=== PATIENT | male | born 1965 | race Caucasian/White ===

== ENCOUNTER 2017-01-01 04:43 | Emergency (ER) | payer OTHER ==
--- NOTE | 2017-01-01 05:14 | ER Document Report ---
Doctor's Note Notes: 01/01/17 05:11 I performed a quick triage evaluation of the patient. Patient is a pleasant 51- year-old male who presents with complaint of 5 days of dysuria and feeling like he has to go urinate but is only able to urinate a small amount at a time. No history of prostatitis. He says he has had similar symptoms in the past injections with his kidney stones however with his kidney stones he usually had associated back pain which she does not have this time. He did have to have a stent placed 4 years ago when he had a large kidney stone. He denies any fevers. No vomiting. No diarrhea. He says he did go to urgent care and they did a dipstick on his urine which showed small amount of blood. They did place him on Flomax. Symptoms have continued and therefore he has come to the ER. He has no other complaints at this time. On evaluation patient has no significant pain to palpation of the abdomen. No pain to palpation of the back or flank. On general exam he has no redness or irritation to the genitalia. No abnormal appearing lesions. I did perform a quick bedside ultrasound. Patient says he actually has to urinate now. His prevoid bladder volume is 100 mL's. I will obtain a CBC BMP and urinalysis at this time. Imaging modality will be deferred until the next provider arrives shortly or until his urinalysis is complete. Dictation of this chart was performed using voice recognition software; therefore, there may be some unintended grammatical errors.
[2017-01-01 05:41] LABS: ABSOLUTE BASOPHILS # (AUTO) 0.1 10^3/uL (0.0-0.2); ABSOLUTE EOSINOPHILS # (AUTO) 0.2 10^3/uL (0.0-0.6); ABSOLUTE LYMPHOCYTES (AUTO) 2.2 10^3/uL (0.5-4.7); ABSOLUTE MONOCYTES (AUTO) 0.7 10^3/uL (0.1-1.4); ABSOLUTE NEUT (AUTO) 6.3 10^3/uL (1.7-8.2); BASOPHILS % (AUTO) 1.2 % (0-2); EOSINOPHILS % (AUTO) 2.6 % (0-6); HEMATOCRIT 42.9 % (37.9-51.0); HEMOGLOBIN 15.2 g/dL (13.5-17.0); HGB HCT DIFFERENCE 2.7; LYMPHOCYTES % (AUTO) 23.5 % (13-45); MEAN CORPUSCULAR HEMOGLOBIN 30.7 pg (27.0-33.4); MEAN CORPUSCULAR HGB CONC 35.5 g/dL (32.0-36.0); MEAN CORPUSCULAR VOLUME 86 fl (80-97); MONOCYTES % (AUTO) 7.1 % (3-13); RED BLOOD COUNT 4.97 10^6/uL (4.35-5.55); RED CELL DISTRIBUTION WIDTH 13.1 % (11.5-14.0); SEGMENTED NEUTROPHILS % (AUTO) 65.6 % (42-78); WHITE BLOOD COUNT 9.5 10^3/uL (4.0-10.5)
[2017-01-01 05:47] LABS: APPEARANCE,URINE CLEAR; BILIRUBIN,URINE NEGATIVE (NEGATIVE); GLUCOSE, URINE NEGATIVE (NEGATIVE); KETONES,URINE NEGATIVE (NEGATIVE); LEUKOCYTE ESTERASE,URINE NEGATIVE (NEGATIVE); NITRITE,URINE NEGATIVE (NEGATIVE); PROTEIN,URINE NEGATIVE (NEGATIVE); URINE SPECIFIC GRAVITY 1.008; UROBILINOGEN,URINE NEGATIVE mg/dL (<2.0)
[2017-01-01 05:53] LABS: ANION GAP 12 (5-19); BLOOD UREA NITROGEN 17 mg/dL (7-20); CALCIUM 9.8 mg/dL (8.4-10.2); CARBON DIOXIDE 22 mmol/L (22-30); CHLORIDE 106 mmol/L (98-107); CREATININE RESULT 0.72 mg/dL (0.52-1.25); GLUCOSE 112 mg/dL (75-110); POTASSIUM 4.2 mmol/L (3.6-5.0); SODIUM 139.7 mmol/L (137-145)
--- NOTE | 2017-01-01 06:27 | ER Document Report ---
ED GI/ <ELLIOTT ZHU - Last Filed: 01/01/17 07:51> - General Mode of Arrival: Ambulatory Information source: Patient TRAVEL OUTSIDE OF THE [place] IN LAST 30 DAYS: No - HPI Patient complains to provider of: Other - urinary frequency Onset: Other - Refer to HPI notes Associated symptoms: Penile discharge, Urinary frequency Similar symptoms previously: Yes Recently seen / treated by doctor: No <BILLY ZENDEJAS - Last Filed: 01/01/17 08:11> - General Chief Complaint: Urinary Frequency Stated Complaint: URINATION PROBLEM Time Seen by Provider: 01/01/17 06:30 - HPI Notes: 01/01/17 06:30 Patient is a 51 year old male presenting to the emergency department for dysuria x 5 days. Patient states he has the feeling of frequency and is only able to urinate a small amount at a time. Patient also has a small amount of penile drip/discharge which he states appears like urine. Patient does not notice the discharge at any particular time. Patient denies any thickness to his urine. Patient also complains of a burning/stabbing sensation at the tip of his penis which occurs during urination. Patient denies any flank pain which he states he usually gets when he has his kidney stones. Patient was seen at Urgent Care yesterday and told he had a small amount of blood in his urine so he was started on Flomax. Patient denies any fevers, hematuria, vomiting, or diarrhea. Patient has a history of laser lithotripsy and a stent placement x1 for previous kidney stones. Patient states his other 2 stones he was able to pass himself. Patient also has a history of GERD and he takes Nexium. Patient has no known allergies. (BILLY ZENDEJAS) - Related Data Allergies/Adverse Reactions: No Known Allergies Allergy (Unverified 01/01/17 04:50) Past Medical History - General Information source: Patient, Relative - spouse - Social History Smoking Status: Current Every Day Smoker Cigarette use (# per day): Yes - 1 ppd Chew tobacco use (# tins/day): No Smoking Education Provided: No Frequency of alcohol use: Rare Drug Abuse: None Lives with: Spouse/Significant other Family History: None Patient has suicidal ideation: No Patient has homicidal ideation: No Renal/ Medical History: Reports: Hx Kidney Stones GI Medical History: Reports: Hx Gastroesophageal Reflux Disease Past Surgical History: Reports: Hx Kidney (Renal Surgery) - laser lithotripsy and stent placed <BILLY ZENDEJAS - Last Filed: 01/01/17 08:11> Review of Systems - Review of Systems Constitutional: No symptoms reported. denies: Fever EENT: No symptoms reported Cardiovascular: No symptoms reported Respiratory: No symptoms reported Gastrointestinal: No symptoms reported. denies: Diarrhea, Vomiting Genitourinary: See HPI, Burning, Dysuria, Frequency, Pain, Retention. denies: Flank pain Male Genitourinary: See HPI, Penile discharge Musculoskeletal: No symptoms reported Skin: No symptoms reported Hematologic/Lymphatic: No symptoms reported Neurological/Psychological: No symptoms reported -: Yes All other systems reviewed and negative <BILLY ZENDEJAS - Last Filed: 01/01/17 08:11> Physical Exam <ELLIOTT ZHU - Last Filed: 01/01/17 07:51> - Vital signs Interpretation: Normal <BILLY ZENDEJAS - Last Filed: 01/01/17 08:11> - Vital signs Vitals: Temp Pulse Resp BP Pulse Ox 97.9 F 82 18 135/79 H 100 01/01/17 04:50 01/01/17 04:50 01/01/17 04:50 01/01/17 04:50 01/01/17 04:50 - Notes Notes: GENERAL: Alert, pleasant, interacts well. Mild distress. HEAD: Normocephalic, atraumatic. EYES: Appear normal. Pupils equal, round, and reactive to light. ENT: Moist mucus membranes, tongue midline. NECK: Full range of motion. Supple. Trachea midline. LUNGS: Clear to auscultation bilaterally, no wheezes, rales, or rhonchi. No respiratory distress. HEART: Regular rate and rhythm. No murmurs, gallops, or rubs. ABDOMEN: Soft, non-tender. Non-distended. Normal bowel sounds. EXTREMITIES: Moves all 4 extremities spontaneously. Normal strength. No edema. NEUROLOGICAL: Alert and oriented x3. Normal speech. No focal neurological deficits. GSC 15. PSYCH: Normal affect, normal mood. SKIN: Warm, dry, normal turgor. No rashes or lesions noted. (BILLY ZENDEJAS) Course - Laboratory Result Diagrams: 01/01/17 05:32 01/01/17 05:32 - Diagnostic Test Radiology reviewed: Image reviewed, Reports reviewed - CT scan shows 3 tiny stones in the right kidney, multiple stones in the left kidney, multiple gallstones. No ureteral stones, no hydroureter. <ELLIOTT ZHU - Last Filed: 01/01/17 07:51> - Laboratory Result Diagrams: 01/01/17 05:32 01/01/17 05:32 <BILLY ZENDEJAS - Last Filed: 01/01/17 08:11> - Re-evaluation Re-evalutation: 01/01/17 07:16 When the patient went to obtain the second urine, he did pass a stone. (ELLIOTT ZHU) - Vital Signs Vital signs: Temp Pulse Resp BP Pulse Ox 97.8 F 75 16 132/89 H 98 01/01/17 08:04 01/01/17 08:04 01/01/17 08:04 01/01/17 08:04 01/01/17 08:04 - Laboratory Laboratory results interpreted by me: 01/01/17 05:32 Glucose 112 H Discharge <ELLIOTT ZHU - Last Filed: 01/01/17 07:51> <BILLY ZENDEJAS - Last Filed: 01/01/17 08:11> - Discharge Clinical Impression: Urethral colic due to calculus, Asymptomatic gallstones Condition: Stable Disposition: HOME, SELF-CARE Additional Instructions: Kidney Stone You have passed a kidney stone. Stones within the kidney itself are not painful. The pain occurs as the stone leaves the kidney to pass down the long tube, called the ureter, leading to the bladder. If the stone is small, it will usually pass by itself. Most patients can pass the stone at home. Drink three or four quarts of fluids per day. Return if pain or vomiting become severe, if you develop a high fever, if you are unable to pass your urine, or if other unusual symptoms occur. TRY TAKING AZO-STANDARD FOR URETHRAL IRRITATION. DRINK PLENTY OF FLUIDS. FOLLOW UP WITH YOUR DOCTOR IF NOT IMPROVING. Forms: Return to Work Scribe Attestation: 01/01/17 07:16 I personally performed the services described in the documentation, reviewed and edited the documentation which was dictated to the scribe in my presence, and it accurately records my words and actions. (ELLIOTT ZHU) Scribe Documentation - Scribe Written by Scribe:: Marcela Lou 01/01/2017 07:00 acting as scribe for :: Lisa <BILLY ZENDEJAS - Last Filed: 01/01/17 08:11>
--- NOTE | 2017-01-01 07:12 | RADIOLOGY REPORT (SQ) ---
EXAM DESCRIPTION: CT LTD RENAL STONE PROTOCOL ON COMPLETED DATE/TIME: 01/01/2017 6:52 am REASON FOR STUDY: frequency, urethral pain, hx of stones COMPARISON: None. TECHNIQUE: CT scan of the abdomen and pelvis performed without intravenous or oral contrast. Images reviewed with lung, soft tissue, and bone windows. Reconstructed coronal and sagittal MPR images revi ewed. All images stored on PACS. All CT scanners at this facility use dose modulation, iterative reconstruction, and/or weight based d osing when appropriate to reduce radiation dose to as low as reasonably achievable (ALARA). [facility]: Dose Right [facility]: CareDose [facility]: Dose Right [facility]: Teradose 4D [facility]: Smart Websand RADIATION DOSE: Up-to-date CT equipment and radiation dose reduction techniques were employed. CTDIv ol: 7.4 mGy. DLP: 392 mGy-cm.mGy. LIMITATIONS: None. FINDINGS: LOWER CHEST: No consolidation or pleural effusion. There is a small hiatal hernia. NON-CONTRASTED LIVER, SPLEEN, ADRENALS: Evaluation limited by lack of IV contrast. No identified sign ificant masses. PANCREAS: No peripancreatic inflammatory changes. GALLBLADDER: There is cholelithiasis. RIGHT KIDNEY AND URETER: Assessment for masses limited by lack of IV contrast. Nonobstructing calci fic foci at the right kidney measuring up to 2 mm. No hydronephrosis or hydroureter. LEFT KIDNEY AND URETER: Assessment for masses limited by lack of IV contrast. Nonobstructing calcif ications at the left kidney measuring up to 5 mm (389 Hounsfield units). No hydronephrosis or hydro ureter. AORTA AND RETROPERITONEUM: No abdominal aortic aneurysm. No retroperitoneal masses or adenopathy. BOWEL AND PERITONEAL CAVITY: No dilated bowel loops or focal inflammatory changes. Scattered colonic diverticulosis with no CT evidence for acute diverticulitis. No free fluid or free air. APPENDIX: Normal. PELVIS, BLADDER, AND ABDOMINAL WALL:The urinary bladder is partially decompressed. No pelvic mass. No free fluid. There is a small fat containing left inguinal hernia. BONES: Mild multilevel degenerative changes in the spine. IMPRESSION: Nonobstructing bilateral nephrolithiasis. No hydronephrosis. Cholelithiasis. Mild colonic diverticulosis. Small hiatal hernia. TECHNICAL DOCUMENTATION: JOB ID: [id number] [facility] Quality ID # [id number]: Final reports with documentation of one or more dose reduction techniques (e.g., Au tomated exposure control, adjustment of the mA and/or kV according to patient size, use of iterative reconstruction technique) 2010 [employer] All Rights Reserved
[2017-01-01 08:05] VITALS: BP 132/89
== END 2017-01-01 08:05 | disposition home or self-care (01) ==
LOC: ER 04:43
DX: N21.1 Calculus in urethra (principal); K80.20 Calculus of gallbladder without cholecystitis without obstruction
CPT/HCPCS: 36415; 76380; 80048; 81001; 85025; 99284

== ENCOUNTER 2018-07-15 07:09 | Emergency (ER) | payer OTHER ==
[2018-07-15] MEDS ORDERED: NORMAL SALINE 500 ML IV ONE (07:44)
[2018-07-15] MEDS ORDERED: GABAPENTIN 300 MG CAPSULE PO ONE (07:45)
--- NOTE | 2018-07-15 08:01 | ER Document Report ---
ED General - General Chief Complaint: Itching Stated Complaint: ITCHING Time Seen by Provider: 07/15/18 07:25 Primary Care Provider: ALBA FORTE PA-C [Primary Care Provider] - Follow up in 3-5 days Notes: Patient is a 53-year-old male that presents to the emergency department for chief complaint of hand itching and redness and foot pain. Patient states that 3 or 4 days ago he went to his mother's house to drop off a prescription he was only there for 20 minutes, and then on his way home, he started feeling itching and tingling in his hands, that has been constant since then, and seems like it got worse over time, he also noticed redness to his hands as well. And then last night he started having pain in both his heels that is worse with walking. He describes the pain as a 6 out of 10 at its worst, as an aching and sharp pain in the heels bilaterally. He denies having any swelling or pain or itching in his hands in the past. Denies chronic alcohol use or liver disease that he is aware of. States that he is not diabetic that he is aware of, he takes diclofenac and medicine for reflux disease, but nothing has changed recently. Denies any exposure to skin irritants such as harsh soaps or chemicals. Past Medical History: GERD, osteoarthritis Past Surgical History: Rotator cuff surgery Social History: Admits to smoking cigarettes, occasional alcohol use, denies illicit drug use. Family History: Reviewed and noncontributory for presenting illness Allergies: Reviewed, see documented allergy list. REVIEW OF SYSTEMS: Other than noted above, the 12 point review of systems was reviewed with the patient and were negative, all pertinent findings are included in the HPI. PHYSICAL EXAMINATION: Vital signs reviewed, nursing noted reviewed. GENERAL: Well-appearing, well-nourished and in no acute distress. HEAD: Atraumatic, normocephalic. EYES: Eyes appear normal, extraocular movements intact, sclera anicteric, conjunctiva are normal. ENT: nares patent, oropharynx clear without exudates. Moist mucous membranes. NECK: Normal range of motion, supple without lymphadenopathy LUNGS: Breath sounds clear to auscultation bilaterally and equal. No wheezes rales or rhonchi. HEART: Regular rate and rhythm without murmurs ABDOMEN: Soft, nontender, normoactive bowel sounds. No rebound, guarding, or rigidity. No masses appreciated. EXTREMITIES: Bilateral palmar erythema, evidence of arthritis in most finger joints, without erythema or significant swelling of any particular joint. Additionally the bilateral feet, he does have tenderness on the plantar aspect, the anterior portion of the calcaneus, no evidence of erythema, cap refill normal, muscular motor strength and sensation intact distally in all extremities. NEUROLOGICAL: No focal neurological deficits. Moves all extremities spontaneously Motor and sensory grossly intact on exam. PSYCH: Normal mood, normal affect. SKIN: Warm, Dry, normal turgor, bilateral palmar erythema is appreciated, normal cap refill distally in all digits, no other rashes noted. TRAVEL OUTSIDE OF THE [place] IN LAST 30 DAYS: No - Related Data Allergies/Adverse Reactions: No Known Allergies Allergy (Verified 07/15/18 07:11) Past Medical History - Social History Smoking Status: Current Every Day Smoker Family History: None Patient has suicidal ideation: No Patient has homicidal ideation: No Renal/ Medical History: Reports: Hx Kidney Stones. Denies: Hx Peritoneal Dialysis GI Medical History: Reports: Hx Gastroesophageal Reflux Disease Past Surgical History: Reports: Hx Kidney (Renal Surgery) - laser lithotripsy and stent placed Physical Exam - Vital signs Vitals: Temp Pulse Resp BP Pulse Ox 97.7 F 85 16 133/86 H 98 07/15/18 07:21 07/15/18 07:21 07/15/18 07:21 07/15/18 07:21 07/15/18 07:21 Course - Re-evaluation Re-evalutation: Patient seen and examined vital signs reviewed. Laboratory data and imaging were ordered as appropriate for the patient's presenting symptoms and complaint, with consideration of any critical or life threatening conditions that may be associated with their obtained history and exam as noted above. Patient was treated with gabapentin, and hydroxyzine Results were reviewed when available and demonstrated essentially unremarkable blood work, he did have a mild leukocytosis, without left shift, extensive workup for possible causes of pulmonary erythema and irritation, including iron studies, TSH, CMP, were all unremarkable. The patient was re-evaluated and was improved, hydroxyzine did seem to help with the patient's itching Evaluation was most consistent with possible allergic reaction versus contact irritation, of unclear cause, advised patient to follow-up with his primary care, given a prescription for hydroxyzine. Believe the patient also is having plantar fasciitis, as he does have a high arch to his foot bilaterally, advised high arch shoes, to continue taking his anti-inflammatory, advised discontinuing wearing clogs, which are not improving or helping this condition, and advised to follow-up with his primary care physician in regards to this as well which he was agreeable to. Results were discussed with the patient at this point, after careful consideration I feel that that patient can be discharged from the emergency department, the patient was educated treatments and reasons to return to the emergency department based on their presumed diagnosis as noted above, they were advised to followup with a primary care physician in 2-3 days. Patient was agreeable to plan of care. *Note is created using voice recognition software and may contain spelling, syntax or grammatical errors. Laboratory 07/15/18 07/15/18 07/15/18 07:45 07:45 07:45 WBC 11.9 H RBC 5.75 H Hgb 15.8 Hct 45.5 MCV 79 L MCH 27.5 MCHC 34.8 RDW 14.4 H Plt Count 269 Seg Neutrophils % 71.2 Lymphocytes % 17.6 Monocytes % 6.6 Eosinophils % 3.6 Basophils % 1.0 Absolute Neutrophils 8.5 H Absolute Lymphocytes 2.1 Absolute Monocytes 0.8 Absolute Eosinophils 0.4 Absolute Basophils 0.1 Retic Count (auto) 1.19 Absolute Retic 0.066 Sodium Potassium Chloride Carbon Dioxide Anion Gap BUN Creatinine Est GFR ( Amer) Est GFR (Non-Af Amer) Glucose Calcium Iron 54.3 TIBC 456 H % Saturation 12 Ferritin 11.20 L Total Bilirubin Direct Bilirubin Neonat Total Bilirubin Neonat Direct Bilirubin Neonat Indirect Bili AST ALT Alkaline Phosphatase Total Protein Albumin Lipase Vitamin B12 534.0 Folate 3.51 TSH Free T4 Urine Color Urine Appearance Urine pH Ur Specific [place] Urine Protein Urine Glucose (UA) Urine Ketones Urine Blood Urine Nitrite Urine Bilirubin Urine Urobilinogen Ur Leukocyte Esterase Urine Mucus (Auto) Urine Ascorbic Acid 07/15/18 07/15/18 07/15/18 07:45 07:45 07:45 WBC RBC Hgb Hct MCV MCH MCHC RDW Plt Count Seg Neutrophils % Lymphocytes % Monocytes % Eosinophils % Basophils % Absolute Neutrophils Absolute Lymphocytes Absolute Monocytes Absolute Eosinophils Absolute Basophils Retic Count (auto) Absolute Retic Sodium 141.2 Potassium 4.4 Chloride 105 Carbon Dioxide 26 Anion Gap 10 BUN 13 Creatinine 0.81 Est GFR ( Amer) > 60 Est GFR (Non-Af Amer) > 60 Glucose 106 Calcium 10.1 Iron TIBC % Saturation Ferritin Total Bilirubin 0.6 Direct Bilirubin 0.3 Neonat Total Bilirubin Not Reportable Neonat Direct Bilirubin Not Reportable Neonat Indirect Bili Not Reportable AST 29 ALT 16 L Alkaline Phosphatase 104 Total Protein 7.7 Albumin 4.7 Lipase 62.1 Vitamin B12 Folate TSH 4.26 Free T4 1.16 Urine Color COLORLESS Urine Appearance CLEAR Urine pH 7.0 Ur Specific [place] 1.003 Urine Protein NEGATIVE Urine Glucose (UA) NEGATIVE Urine Ketones NEGATIVE Urine Blood NEGATIVE Urine Nitrite NEGATIVE Urine Bilirubin NEGATIVE Urine Urobilinogen NEGATIVE Ur Leukocyte Esterase NEGATIVE Urine Mucus (Auto) RARE Urine Ascorbic Acid NEGATIVE - Vital Signs Vital signs: Temp Pulse Resp BP Pulse Ox 97.7 F 85 16 133/86 H 98 07/15/18 07:21 07/15/18 07:21 07/15/18 07:21 07/15/18 07:21 07/15/18 07:21 - Laboratory Result Diagrams: 07/15/18 07:45 07/15/18 07:45 Laboratory results interpreted by me: 07/15/18 07/15/18 07/15/18 07:45 07:45 07:45 WBC 11.9 H RBC 5.75 H MCV 79 L RDW 14.4 H Absolute Neutrophils 8.5 H TIBC 456 H Ferritin 11.20 L ALT 16 L Discharge - Discharge Clinical Impression: Foot pain, bilateral Allergic reaction Qualifiers: Encounter type: initial encounter Qualified Code(s): T78.40XA - Allergy, unspecified, initial encounter Condition: Stable Disposition: HOME, SELF-CARE Instructions: Acute Allergic Reaction ([facility]) Additional Instructions: Please follow-up with your primary care physician, to be further evaluated or if your symptoms persist, if you develop any worsening or concerning symptoms such as chest pain shortness of breath or difficulty breathing, do not hesitate to return to the emergency department. Prescriptions: Hydroxyzine HCl [Atarax 50 mg Tablet] 50 mg PO TID PRN #30 tablet PRN Reason: Itching Referrals: ALBA FORTE PA-C [Primary Care Provider] - Follow up in 3-5 days
[2018-07-15 08:05] LABS: ABSOLUTE BASOPHILS # (AUTO) 0.1 10^3/uL (0.0-0.2); ABSOLUTE EOSINOPHILS # (AUTO) 0.4 10^3/uL (0.0-0.6); ABSOLUTE LYMPHOCYTES (AUTO) 2.1 10^3/uL (0.5-4.7); ABSOLUTE MONOCYTES (AUTO) 0.8 10^3/uL (0.1-1.4); ABSOLUTE NEUT (AUTO) 8.5 10^3/uL (1.7-8.2); EOSINOPHILS % (AUTO) 3.6 % (0-6); HEMATOCRIT 45.5 % (37.9-51.0); HEMOGLOBIN 15.8 g/dL (13.5-17.0); LYMPHOCYTES % (AUTO) 17.6 % (13-45); MEAN CORPUSCULAR HEMOGLOBIN 27.5 pg (27.0-33.4); MEAN CORPUSCULAR HGB CONC 34.8 g/dL (32.0-36.0); MEAN CORPUSCULAR VOLUME 79 fl (80-97); MONOCYTES % (AUTO) 6.6 % (3-13); PLATELET COUNT 269 10^3/uL (150-450); RED BLOOD COUNT 5.75 10^6/uL (4.35-5.55); RED CELL DISTRIBUTION WIDTH 14.4 % (11.5-14.0); SEGMENTED NEUTROPHILS % (AUTO) 71.2 % (42-78); TOTAL CELLS COUNTED % (AUTO) 100 %; WHITE BLOOD COUNT 11.9 10^3/uL (4.0-10.5)
[2018-07-15 08:10] LABS: ABSOLUTE RETICS # 0.066 10^6/uL (0.028-0.122); RETICULOCYTE COUNT (AUTO) 1.19 % (0.66-2.85)
[2018-07-15 08:21] LABS: ALANINE AMINOTRANSFERASE 16 U/L (21-72); ALBUMIN 4.7 g/dL (3.5-5.0); ALKALINE PHOSPHATASE 104 U/L (38-126); ANION GAP 10 (5-19); ASPARTATE AMINO TRANSFERASE 29 U/L (17-59); BILIRUBIN,DIRECT 0.3 mg/dL (0.0-0.4); BILIRUBIN,TOTAL 0.6 mg/dL (0.2-1.3); BLOOD UREA NITROGEN 13 mg/dL (7-20); CALCIUM 10.1 mg/dL (8.4-10.2); CARBON DIOXIDE 26 mmol/L (22-30); CHLORIDE 105 mmol/L (98-107); GLUCOSE 106 mg/dL (75-110); LIPASE 62.1 U/L (23-300); POTASSIUM 4.4 mmol/L (3.6-5.0); SODIUM 141.2 mmol/L (137-145); TOTAL PROTEIN 7.7 g/dL (6.3-8.2)
[2018-07-15 08:22] LABS: IRON(TIBC) 54.3 ug/dL (49-181)
[2018-07-15 08:38] LABS: FREE T4 (FREE THYROXINE) 1.16 ng/dL (0.78-2.19)
[2018-07-15 08:45] LABS: APPEARANCE,URINE CLEAR; BILIRUBIN,URINE NEGATIVE (NEGATIVE); COLOR,URINE COLORLESS; GLUCOSE, URINE NEGATIVE (NEGATIVE); KETONES,URINE NEGATIVE (NEGATIVE); LEUKOCYTE ESTERASE,URINE NEGATIVE (NEGATIVE); NITRITE,URINE NEGATIVE (NEGATIVE); PROTEIN,URINE NEGATIVE (NEGATIVE); URINE SPECIFIC GRAVITY 1.003; UROBILINOGEN,URINE NEGATIVE mg/dL (<2.0)
[2018-07-15 08:52] LABS: THYROID STIMULATING HORMONE 4.26 uIU/mL (0.47-4.68)
[2018-07-15] MEDS ORDERED: HYDROXYZINE HCL 10 MG TABLET PO ONE (09:07)
[2018-07-15 09:28] LABS: FOLATE 3.51 ng/mL (>2.76)
[2018-07-15 10:18] VITALS: BP 130/85
== END 2018-07-15 10:17 | disposition home or self-care (01) ==
LOC: ER 07:09
DX: T78.40XA Allergy, unspecified, initial encounter (principal); L29.9 Pruritus, unspecified; X58.XXXA Exposure to other specified factors, initial encounter; M79.671 Pain in right foot; M79.672 Pain in left foot; L53.9 Erythematous condition, unspecified; M19.042 Primary osteoarthritis, left hand; M19.041 Primary osteoarthritis, right hand; K21.9 Gastro-esophageal reflux disease without esophagitis; Z79.1 Long term (current) use of non-steroidal anti-inflammatories (NSAID); Z79.899 Other long term (current) drug therapy; F17.210 Nicotine dependence, cigarettes, uncomplicated; D72.829 Elevated white blood cell count, unspecified
CPT/HCPCS: 99283; 96360; 36415; 84439; 82607; 82728; 82746; 83540; 83550; 83690; 84443; 85025; 85045; 80053; 81001; J7040

== ENCOUNTER 2019-03-10 11:15 | Emergency (ER) | payer OTHER ==
[2019-03-10] MEDS ORDERED: ONDANSETRON HCL INJ/PF 4 MG/2 ML SDV IV ONE (11:21)
--- NOTE | 2019-03-10 11:22 | ER Document Report ---
ED Medical Screen (RME) - General Chief Complaint: Abdominal Pain Stated Complaint: ABDOMINAL PAIN Primary Care Provider: ALBA FORTE PA-C [Primary Care Provider] - Follow up as needed Mode of Arrival: Ambulatory Information source: Patient Notes: Patient presents complaining of lower abdominal pain for the past 10 days. Patient also reports rectal pressure. Patient started vomiting yesterday and has had diarrhea for the past 2 days. Patient states diarrhea started after starting amitiza recently. I have greeted and performed a rapid initial assessment of this patient. A comprehensive ED assessment and evaluation of the patient, analysis of test results and completion of the medical decision making process will be conducted by additional ED providers. TRAVEL OUTSIDE OF THE [place] IN LAST 30 DAYS: No - Related Data Allergies/Adverse Reactions: No Known Allergies Allergy (Verified 03/10/19 11:20) Past Medical History Renal/ Medical History: Reports: Hx Kidney Stones. Denies: Hx Peritoneal Dialysis GI Medical History: Reports: Hx Gastroesophageal Reflux Disease Past Surgical History: Reports: Hx Kidney (Renal Surgery) - laser lithotripsy and stent placed Physical Exam - Vital signs Vitals: Temp Pulse Resp BP Pulse Ox 97.3 F 98 18 130/85 H 97 03/10/19 11:19 03/10/19 11:19 03/10/19 11:19 03/10/19 11:19 03/10/19 11:19 - Abdominal Tenderness: Tender - Lower pelvic Course - Vital Signs Vital signs: Temp Pulse Resp BP Pulse Ox 97.3 F 98 18 130/85 H 97 03/10/19 11:19 03/10/19 11:19 03/10/19 11:19 03/10/19 11:19 03/10/19 11:19 Doctor's Discharge - Discharge Referrals: ALBA FORTE PA-C [Primary Care Provider] - Follow up as needed
[2019-03-10 11:53] LABS: ABSOLUTE BASOPHILS # (AUTO) 0.1 10^3/uL (0.0-0.2); ABSOLUTE EOSINOPHILS # (AUTO) 0.1 10^3/uL (0.0-0.6); ABSOLUTE LYMPHOCYTES (AUTO) 2.1 10^3/uL (0.5-4.7); ABSOLUTE MONOCYTES (AUTO) 1.1 10^3/uL (0.1-1.4); ABSOLUTE NEUT (AUTO) 11.9 10^3/uL (1.7-8.2); BASOPHILS % (AUTO) 0.8 % (0-2); EOSINOPHILS % (AUTO) 0.7 % (0-6); HEMATOCRIT 43.2 % (37.9-51.0); HEMOGLOBIN 14.6 g/dL (13.5-17.0); LYMPHOCYTES % (AUTO) 13.6 % (13-45); MEAN CORPUSCULAR HEMOGLOBIN 27.9 pg (27.0-33.4); MEAN CORPUSCULAR HGB CONC 33.9 g/dL (32.0-36.0); MEAN CORPUSCULAR VOLUME 82 fl (80-97); MONOCYTES % (AUTO) 7.3 % (3-13); PLATELET COUNT 329 10^3/uL (150-450); RED BLOOD COUNT 5.25 10^6/uL (4.35-5.55); RED CELL DISTRIBUTION WIDTH 13.8 % (11.5-14.0); SEGMENTED NEUTROPHILS % (AUTO) 77.6 % (42-78); TOTAL CELLS COUNTED % (AUTO) 100 %; WHITE BLOOD COUNT 15.3 10^3/uL (4.0-10.5)
[2019-03-10 12:01] LABS: APPEARANCE,URINE CLEAR; BILIRUBIN,URINE NEGATIVE (NEGATIVE); COLOR,URINE YELLOW; GLUCOSE, URINE NEGATIVE (NEGATIVE); KETONES,URINE 20 mg/dL (NEGATIVE); PROTEIN,URINE NEGATIVE (NEGATIVE); URINE SPECIFIC GRAVITY 1.014; UROBILINOGEN,URINE NEGATIVE mg/dL (<2.0)
[2019-03-10 12:08] LABS: ALBUMIN 4.1 g/dL (3.5-5.0); ALKALINE PHOSPHATASE 133 U/L (38-126); ANION GAP 14 (5-19); ASPARTATE AMINO TRANSFERASE 24 U/L (17-59); BILIRUBIN,DIRECT 0.2 mg/dL (0.0-0.4); BLOOD UREA NITROGEN 15 mg/dL (7-20); CALCIUM 9.9 mg/dL (8.4-10.2); CARBON DIOXIDE 23 mmol/L (22-30); CHLORIDE 102 mmol/L (98-107); GLUCOSE 97 mg/dL (75-110); POTASSIUM 4.5 mmol/L (3.6-5.0); TOTAL PROTEIN 7.7 g/dL (6.3-8.2)
[2019-03-10] MEDS ORDERED: MORPHINE SULFATE 10 MG/ML INJ IV ONE (12:09)
--- NOTE | 2019-03-10 12:15 | ER Document Report ---
ED General - General Chief Complaint: Abdominal Pain Stated Complaint: ABDOMINAL PAIN Time Seen by Provider: 03/10/19 11:52 Primary Care Provider: ALBA FORTE PA-C [Primary Care Provider] - Follow up as needed Mode of Arrival: Ambulatory TRAVEL OUTSIDE OF THE [place] IN LAST 30 DAYS: No - HPI Notes: Patient is a 53-year-old male with a history of IBS and kidney stones who presents complaining of left lower quadrant abdominal pain, watery diarrhea, lo wer mid abdominal cramping, occasional nausea/vomiting over the past 10 days but more so over the past 2 days. Patient states that last week he believes he may have passed a kidney stone, but this pain is a little bit different. Patient states that he has a weaker urinary stream and is voiding small amounts, with feeling of incomplete void. Patient states that he has had constant watery diarrhea for the past 10 days with a foul smell. No recent antibiotics or travel. No surgical history to his abdomen. Denies drug allergies. He is still able to eat and drink, but everything runs right through him per patient. No other recent illness. Denies any headache, fever, URI, sore throat, chest pain, palpitations, syncope, cough, shortness of breath, wheeze, dyspnea, urinary retention, dysuria, hematuria, back pain, or rash. - Related Data Allergies/Adverse Reactions: No Known Allergies Allergy (Verified 03/10/19 11:20) Past Medical History - General Information source: Patient - Social History Smoking Status: Current Every Day Smoker Family History: None Patient has suicidal ideation: No Patient has homicidal ideation: No Renal/ Medical History: Reports: Hx Kidney Stones. Denies: Hx Peritoneal Dialysis GI Medical History: Reports: Hx Gastroesophageal Reflux Disease Past Surgical History: Reports: Hx Kidney (Renal Surgery) - laser lithotripsy and stent placed Review of Systems - Review of Systems -: Yes All other systems reviewed and negative Physical Exam - Vital signs Vitals: Temp Pulse Resp BP Pulse Ox 97.3 F 98 18 130/85 H 97 03/10/19 11:19 03/10/19 11:19 03/10/19 11:19 03/10/19 11:19 03/10/19 11:19 - Notes Notes: PHYSICAL EXAMINATION: GENERAL: Well-appearing, well-nourished and in no acute distress. HEAD: Atraumatic, normocephalic. EYES: Pupils equal round and reactive to light, extraocular movements intact, sclera anicteric, conjunctiva are normal. ENT: Nares patent and without discharge. oropharynx clear without exudates. No tonsilar hypertrophy or erythema. Moist mucous membranes. NECK: Normal range of motion, supple without lymphadenopathy LUNGS: Breath sounds clear to auscultation bilaterally and equal. No wheezes rales or rhonchi. HEART: Regular rate and rhythm without murmurs, rubs, gallops. ABDOMEN: Soft, nondistended abdomen. No guarding, no rebound. Normal bowel sounds present. No CVA tenderness bilaterally. + tenderness LLQ. Musculoskeletal: FROM to passive/active. Strength 5+/5. Extremities: No cyanosis, clubbing, or edema b/l. Peripheral pulses 2+. Capillary refill less than 3 seconds. NEUROLOGICAL: Cranial nerves grossly intact. Normal speech, normal gait. PSYCH: Normal mood, normal affect. SKIN: Warm, Dry, normal turgor, no rashes or lesions noted. Course - Re-evaluation Re-evalutation: 03/10/19 13:29 Patient is an afebrile, well-hydrated, 53-year-old male who presents with diverticulitis and 2 small possible abscesses measuring 1.5 and 1.1 cm. Vitals are acceptable without significant tachycardia, tachypnea, or hypoxia. PE is otherwise unremarkable. Patient is nontoxic-appearing and is tolerating p.o. Patient does have a leukocytosis of 15,000. Labs otherwise acceptable. I did review with Dr. Rodríguez, surgery, who would like Bactrim and Flagyl for 10 days and follow-up in their office in the next 1-2wks. post void residual was unremarkable at <30cc's. No further work-up warranted at this time. Low suspicion/risk for acute appendicitis, bowel obstruction, acute cholecystitis, perforated diverticulitis, incarcerated hernia, pancreatitis, perforated ulcer, peritonitis, sepsis, testicular torsion, or other systemic emergent condition at this time. Patient is aware that his condition can change from initial presentation and he needs to monitor symptoms closely and seek medical attention if any acute changes. Conservative measures otherwise for symptoms. Recheck with PCM in 3-5 days. Schedule consult with surgery. Return to the ED with any worsening/concerning symptoms otherwise as reviewed in discharge. Patient is in agreement. - Vital Signs Vital signs: Temp Pulse Resp BP Pulse Ox 97.3 F 98 18 130/85 H 97 03/10/19 11:19 03/10/19 11:19 03/10/19 11:19 03/10/19 11:19 03/10/19 11:19 - Laboratory Result Diagrams: 03/10/19 11:30 03/10/19 11:30 Laboratory results interpreted by me: 03/10/19 03/10/19 03/10/19 11:30 11:30 11:30 WBC 15.3 H Absolute Neuts (auto) 11.9 H Alkaline Phosphatase 133 H Urine Ketones 20 H Urine Blood SMALL H Discharge - Discharge Clinical Impression: Diverticulitis Condition: Stable Disposition: HOME, SELF-CARE Instructions: Diverticulitis ([facility]), Trimethoprim-Sulfa ([facility]), Metronidazole ([facility]) Additional Instructions: Maintain adequate fluid and food intake Mccreary diet ([employer] Bananas, rice, apples, toast, etc Zofran as needed tylenol if needed Monitor for any worsening symptoms Make sure you are staying hydrated enough to urinate and have normal BM's Recheck with your PCM in 3-5 days Schedule appointment with general surgery for further evaluation and management in the next couple weeks. Return to the ED with any worsening symptoms and/or development of fever, headache, chest pain, palpitations, syncope, shortness of breath, trouble breathing, abdominal pain, n/v/d, blood in stool/urine, weakness, or other w orsening symptoms that are concerning to you. Prescriptions: Sulfamethoxazole/Trimethoprim [Bactrim Ds Tablet] 1 each PO BID #20 tablet Metronidazole [Flagyl] 500 mg PO TID #30 tablet Hydrocodone/Acetaminophen [[place] 5-325 mg Tablet] 1 tab PO TID #12 tablet Ondansetron [Zofran Odt 4 mg Tablet] 1 - 2 tab PO Q4H PRN #15 tab.rapdis PRN Reason: For Nausea/Vomiting Forms: Elevated Blood Pressure, Return to Work Referrals: ALBA FORTE PA-C [Primary Care Provider] - Follow up as needed SHANIQUA RODRÍGUEZ MD [ACTIVE STAFF] - Follow up as needed
--- NOTE | 2019-03-10 13:08 | RADIOLOGY REPORT (SQ) ---
EXAM DESCRIPTION: CT ABD/PELVIS WITH IV ONLY COMPLETED DATE/TIME: 03/10/2019 12:49 pm REASON FOR STUDY: LLQ pain COMPARISON: 01/01/2017 TECHNIQUE: CT scan of the abdomen and pelvis performed using helical scanning technique with dynamic intravenous contrast injection. No oral contrast. Images reviewed with lung, soft tissue, and bone windows. Reconstructed coronal and sagittal MPR images reviewed. Delayed images for evaluation of the urinary system also acquired. All images stored on PACS. All CT scanners at this facility use dose modulation, iterative reconstruction, and/or weight based d osing when appropriate to reduce radiation dose to as low as reasonably achievable (ALARA). [facility]: Dose Right [facility]: CareDose [facility]: Dose Right [facility]: Teradose 4D [facility]: [employer] CONTRAST TYPE AND DOSE: 81 mL Omnipaque 350 iodinated contrast IV RENAL FUNCTION: GFR > 60. RADIATION DOSE: 1043 mGy cm LIMITATIONS: None. FINDINGS: LOWER CHEST: No significant findings. No nodules or infiltrates. LIVER: Normal size. No masses. No dilated ducts. SPLEEN: Normal size. No focal lesions. PANCREAS: No masses. No significant calcifications. No adjacent inflammation or peripancreatic fluid collections. Pancreatic duct not dilated. GALLBLADDER: Gallstones. No inflammatory changes to suggest cholecystitis. ADRENAL GLANDS: No significant masses or asymmetry. RIGHT KIDNEY AND URETER: No solid masses. No significant calcifications. No hydronephrosis or hyd roureter. LEFT KIDNEY AND URETER: No solid masses. Numerous nonobstructive small calculi. No hydronephrosis or hydroureter. AORTA AND VESSELS: No aneurysm. No dissection. Renal arteries, SMA, celiac without stenosis. RETROPERITONEUM: No retroperitoneal adenopathy, hemorrhage or masses. BOWEL AND PERITONEAL CAVITY: Small hiatal hernia. There is sigmoid diverticulosis with inflammatory fat stranding about the mid sigmoid. There are two small rounded hypodensities about the left aspect of the mid sigmoid concerning for phlegmon or abscess measuring 1.5 cm and 1.1 cm (series 3, image 6 5, series 601, image 45). No evidence of perforation. Small volume of adjacent fluid. APPENDIX: Normal. PELVIS: No mass. No free fluid. Normal bladder. ABDOMINAL WALL: No masses. No hernias. BONES: No significant or acute findings. OTHER: No other significant finding. IMPRESSION: 1. There is sigmoid diverticulosis with inflammatory fat stranding about the mid sigmoid consistent with acute diverticulitis. There are two small rounded hypodensities about the left aspe ct of the mid sigmoid concerning for phlegmon or abscess measuring 1.5 cm and 1.1 cm (series 3, image 65, series 601, image 45). No evidence of perforation. Small volume of adjacent fluid. 2. Cholelithiasis. 3. Nonobstructive left nephrolithiasis. TECHNICAL DOCUMENTATION: JOB ID: [id number] Quality ID # [id number]: Final reports with documentation of one or more dose reduction techniques (e.g., Au tomated exposure control, adjustment of the mA and/or kV according to patient size, use of iterative reconstruction technique) 2010 [employer]- All Rights Reserved Reading location - IP/workstation name: [email or web address]
[2019-03-10 13:51] VITALS: BP 119/85
== END 2019-03-10 13:51 | disposition home or self-care (01) ==
LOC: ER 11:15
DX: K57.92 Diverticulitis of intestine, part unspecified, without perforation or abscess without bleeding (principal); R10.32 Left lower quadrant pain; N39.8 Other specified disorders of urinary system; R19.7 Diarrhea, unspecified; F17.200 Nicotine dependence, unspecified, uncomplicated; Z87.442 Personal history of urinary calculi
CPT/HCPCS: 99284; 96374; 96375; 36415; 83690; 85025; 80053; 81001; 74177; J2270; J2405

== ENCOUNTER → 2019-03-28 | Outpatient (CLI) | payer OTHER ==
--- NOTE | 2019-03-28 08:50 | RADIOLOGY REPORT (SQ) ---
EXAM DESCRIPTION: CT ABD/PELVIS WITH IV ORAL COMPLETED DATE/TIME: 03/28/2019 8:20 am REASON FOR STUDY: DIVERTICULITIS (K57.20) K57.20 DVTRCLI OF LG INT W PERFORATION AND ABSCESS W/O BL EED COMPARISON: 03/10/2019 TECHNIQUE: CT scan of the abdomen and pelvis performed using helical scanning technique with dynamic intravenous contrast injection. No oral contrast. Images reviewed with lung, soft tissue, and bone windows. Reconstructed coronal and sagittal MPR images reviewed. Delayed images for evaluation of the urinary system also acquired. All images stored on PACS. All CT scanners at this facility use dose modulation, iterative reconstruction, and/or weight based d osing when appropriate to reduce radiation dose to as low as reasonably achievable (ALARA). [facility]: Dose Right [facility]: CareDose [facility]: Dose Right [facility]: Teradose 4D [facility]: [employer] CONTRAST TYPE AND DOSE: contrast/concentration: Isovue 350.00 mg/ml; Total Contrast Delivered: 83.0 ml; Total Saline Delivered: 69.0 ml RENAL FUNCTION: BUN 15, creatinine 0.78 RADIATION DOSE: CT Rad equipment meets quality standard of care and radiation dose reduction techniq ues were employed. CTDIvol: 7.8 - 7.8 mGy. DLP: 788 mGy-cm.. LIMITATIONS: None. FINDINGS: LOWER CHEST: No significant findings. No nodules or infiltrates. LIVER: Normal size. No masses. No dilated ducts. SPLEEN: Normal size. No focal lesions. PANCREAS: No masses. No significant calcifications. No adjacent inflammation or peripancreatic fluid collections. Pancreatic duct not dilated. GALLBLADDER: There are gallstones. Probable calcified gallbladder wall as well. ADRENAL GLANDS: No significant masses or asymmetry. RIGHT KIDNEY AND URETER: No solid masses. No significant calcifications. No hydronephrosis or hyd roureter. LEFT KIDNEY AND URETER: No solid masses. Small nonobstructing left renal calculi. No hydronephros is or hydroureter. AORTA AND VESSELS: No aneurysm. No dissection. Renal arteries, SMA, celiac without stenosis. RETROPERITONEUM: No retroperitoneal adenopathy, hemorrhage or masses. BOWEL AND PERITONEAL CAVITY: Persistent bowel wall thickening involving the sigmoid colon. Mild surr ounding mesenteric inflammation. Focal small fluid collections previously described have resolved. No free fluid or free air. APPENDIX: Normal. PELVIS: No mass. No free fluid. Normal bladder. ABDOMINAL WALL: No masses. No hernias. BONES: No significant or acute findings. OTHER: None. IMPRESSION: Persistent bowel wall thickening involving sigmoid colon with surrounding inflammation. Findings remain consistent with diverticulitis. Focal small fluid collections previously described have resolved. TECHNICAL DOCUMENTATION: JOB ID: [id number] Quality ID # [id number]: Final reports with documentation of one or more dose reduction techniques (e.g., Au tomated exposure control, adjustment of the mA and/or kV according to patient size, use of iterative reconstruction technique) 2010 [employer]- All Rights Reserved Reading location - IP/workstation name: [email or web address]
== END ==
LOC: RAD 07:50
PROVIDERS: ATTEND Surgery
DX: K57.20 Diverticulitis of large intestine with perforation and abscess without bleeding (principal); N20.0 Calculus of kidney
CPT/HCPCS: 74177

== ENCOUNTER 2019-04-04 21:34 | Inpatient (IN) | payer OTHER ==
--- NOTE | 2019-04-04 21:50 | ER Document Report ---
ED Medical Screen (RME) - General Stated Complaint: LOWER ABDOMINAL PAIN Time Seen by Provider: 04/04/19 21:44 Primary Care Provider: SHANIQUA RODRÍGUEZ MD [Primary Care Provider] - Follow up as needed TRAVEL OUTSIDE OF THE [place] IN LAST 30 DAYS: No - HPI Notes: 04/04/19 21:48 Patient is a 53-year-old male with history of diverticulitis within the last couple weeks who presents complaining of being unable to urinate and having suprapubic pain and pressure since waking up from a nap around 12:00 today. Patient states that his last urination was about 11 hours ago. Patient states that he is very uncomfortable. He is no longer on any antibiotics. No fever, vomiting, diarrhea. We will place a catheter first and see if this resolves symptoms then consider CT with known diverticulitis history unless other provider chooses differently. I have treated and performed a rapid initial assessment of this patient. A comprehensive ED assessment and evaluation of the patient, analysis of test results and completion of medical decision making process will be conducted by additional ED providers. PHYSICAL EXAMINATION: GENERAL: Well-appearing, well-nourished and in no acute distress. A&Ox4. Answers questions appropriately. Abdomen: There is suprapubic tenderness to palpation. - Related Data Allergies/Adverse Reactions: No Known Allergies Allergy (Verified 03/10/19 11:20) Past Medical History Renal/ Medical History: Reports: Hx Kidney Stones. Denies: Hx Peritoneal Dialysis GI Medical History: Reports: Hx Gastroesophageal Reflux Disease Past Surgical History: Reports: Hx Kidney (Renal Surgery) - laser lithotripsy and stent placed, Hx Orthopedic Surgery - right shoulder Physical Exam - Vital signs Vitals: Temp Pulse Resp BP Pulse Ox 97.3 F 115 H 18 123/92 H 99 04/04/19 21:42 04/04/19 21:42 04/04/19 21:42 04/04/19 21:42 04/04/19 21:42 Course - Vital Signs Vital signs: Temp Pulse Resp BP Pulse Ox 97.3 F 115 H 18 123/92 H 99 04/04/19 21:42 04/04/19 21:42 04/04/19 21:42 04/04/19 21:42 04/04/19 21:42 Doctor's Discharge - Discharge Referrals: SHANIQUA RODRÍGUEZ MD [Primary Care Provider] - Follow up as needed
[2019-04-04] MEDS ORDERED: MORPHINE SULFATE 10 MG/ML INJ IV ONE ×2 (22:13→23:34)
[2019-04-04 22:41] LABS: ABSOLUTE EOSINOPHILS # (AUTO) 0.1 10^3/uL (0.0-0.6); ABSOLUTE LYMPHOCYTES (AUTO) 1.7 10^3/uL (0.5-4.7); ABSOLUTE MONOCYTES (AUTO) 1.3 10^3/uL (0.1-1.4); ABSOLUTE NEUT (AUTO) 13.9 10^3/uL (1.7-8.2); BASOPHILS % (AUTO) 0.2 % (0-2); EOSINOPHILS % (AUTO) 0.5 % (0-6); HEMATOCRIT 43.2 % (37.9-51.0); HEMOGLOBIN 14.8 g/dL (13.5-17.0); LYMPHOCYTES % (AUTO) 9.9 % (13-45); MEAN CORPUSCULAR HEMOGLOBIN 28.3 pg (27.0-33.4); MEAN CORPUSCULAR HGB CONC 34.3 g/dL (32.0-36.0); MEAN CORPUSCULAR VOLUME 83 fl (80-97); MONOCYTES % (AUTO) 7.5 % (3-13); PLATELET COUNT 257 10^3/uL (150-450); RED BLOOD COUNT 5.23 10^6/uL (4.35-5.55); RED CELL DISTRIBUTION WIDTH 14.5 % (11.5-14.0); SEGMENTED NEUTROPHILS % (AUTO) 81.9 % (42-78); TOTAL CELLS COUNTED % (AUTO) 100 %; WHITE BLOOD COUNT 16.9 10^3/uL (4.0-10.5)
[2019-04-04 22:59] LABS: ALBUMIN 4.1 g/dL (3.5-5.0); ALKALINE PHOSPHATASE 71 U/L (38-126); ANION GAP 10 (5-19); ASPARTATE AMINO TRANSFERASE 30 U/L (17-59); BILIRUBIN,DIRECT 0.2 mg/dL (0.0-0.4); BILIRUBIN,TOTAL 1.1 mg/dL (0.2-1.3); BLOOD UREA NITROGEN 24 mg/dL (7-20); CALCIUM 9.7 mg/dL (8.4-10.2); CARBON DIOXIDE 25 mmol/L (22-30); CHLORIDE 103 mmol/L (98-107); GLUCOSE 122 mg/dL (75-110); POTASSIUM 3.8 mmol/L (3.6-5.0); TOTAL PROTEIN 7.3 g/dL (6.3-8.2)
--- NOTE | 2019-04-04 23:28 | ER Document Report ---
ED GI/ - General Chief Complaint: Lower Abdominal Pain Stated Complaint: LOWER ABDOMINAL PAIN Time Seen by Provider: 04/04/19 21:44 Primary Care Provider: SHANIQUA RODRÍGUEZ MD [Primary Care Provider] - Follow up as needed Notes: Mr. Avelar is a 53 yo m w/ PMH diverticulitis and gallstones presenting to the ED for abdominal pain. Patient states that he took a nap this afternoon and has been unable to urinate since approximately 2 PM. He endorses significant abdominal tenderness. He also adds that he has had subjective fever and chills without any documented temperatures. He denies any nausea, vomiting or diarr hea. He states that approximately 3 weeks ago, he was diagnosed with diverticulitis. He was on antibiotics for approximately 10 to 14 days and it was not until the last 3 or 4 that the pain started improving. He endorses the pain primarily being located in the left lower quadrant. He had an otherwise normal bowel movement earlier today without any melena or blood. He denies any hematuria. No cough, chest pain or shortness of breath. TRAVEL OUTSIDE OF THE [place] IN LAST 30 DAYS: No - Related Data Allergies/Adverse Reactions: No Known Allergies Allergy (Verified 03/10/19 11:20) Past Medical History - Social History Smoking Status: Current Every Day Smoker Family History: None Patient has suicidal ideation: No Patient has homicidal ideation: No Renal/ Medical History: Reports: Hx Kidney Stones. Denies: Hx Peritoneal Dialysis GI Medical History: Reports: Hx Gastroesophageal Reflux Disease, Hx Hiatal Hernia Past Surgical History: Reports: Hx Kidney (Renal Surgery) - laser lithotripsy and stent placed, Hx Orthopedic Surgery - right shoulderComment Only: Hx Cholecystectomy - Gallstones Review of Systems - Review of Systems Constitutional: See HPI EENT: No symptoms reported Cardiovascular: No symptoms reported Respiratory: No symptoms reported Gastrointestinal: See HPI Genitourinary: See HPI Male Genitourinary: No symptoms reported Musculoskeletal: No symptoms reported Skin: No symptoms reported Hematologic/Lymphatic: No symptoms reported Neurological/Psychological: No symptoms reported Physical Exam - Vital signs Vitals: Temp Pulse Resp BP Pulse Ox 97.3 F 115 H 18 123/92 H 99 04/04/19 21:42 04/04/19 21:42 04/04/19 21:42 04/04/19 21:42 04/04/19 21:42 Interpretation: Tachycardic - General General appearance: Appears well, Alert - HEENT Head: Normocephalic, Atraumatic Eyes: Normal Pupils: PERRL - Respiratory Respiratory status: No respiratory distress Chest status: Nontender Breath sounds: Normal Chest palpation: Normal - Cardiovascular Rhythm: Regular Heart sounds: Normal auscultation Murmur: No - Abdominal Inspection: Normal Distension: No distension Bowel sounds: Normal Tenderness: Tender - Left lower quadrant TTP with voluntary guarding no rebound., Guarding. No: McBurney's point, Graves's sign, Rebound Organomegaly: No organomegaly - Back Back: Normal, Nontender - Extremities General upper extremity: Normal inspection, Nontender, Normal color, Normal ROM, Normal temperature General lower extremity: Normal inspection, Nontender, Normal color, Normal ROM, Normal temperature, Normal weight bearing. No: Rosalio's sign - Neurological Neuro grossly intact: Yes Cognition: Normal Orientation: AAOx4 [place] Coma Scale Eye Opening: Spontaneous [place] Coma Scale Verbal: Oriented [place] Coma Scale Motor: Obeys Commands [place] Coma Scale Total: 15 Speech: Normal Motor strength normal: LUE, RUE, LLE, RLE Sensory: Normal - Psychological Associated symptoms: Normal affect, Normal mood - Skin Skin Temperature: Warm Skin Moisture: Dry Skin Color: Normal Course - Re-evaluation Re-evalutation: Patient is uncomfortable appearing but nontoxic. Vitals within normal limits. Differential diagnosis includes bowel obstruction, diverticulitis, bowel perforation, sepsis, urinary retention nephrolithiasis On my evaluation, the nursing staff had already obtain blood work and placed a Gagnon. After immediate placement of the Gagnon, approximately 300 mL's of urine were released which continued. Patient had a total of 700 mL's of urine by the time I evaluated him. CBC notable for leukocytosis with left shift. H&H stable. CMP within normal limits. 04/05/19 23:34 Patient appears significantly uncomfortable. Ordered for 4 mg of morphine as well as CT scan. 04/05/19 00:14 Patient having significant pain and unable to lie still. Ordered for [address] CT to be performed. 04/05/19 00:27 UA does not show evidence of blood to suggest nephrolithiasis. 04/05/19 01:[address] Bob. Will come see patient. Patient ordered for blood cultures, lactic acid, and Zosyn. 04/05/19 02:[address] Bob to . - Vital Signs Vital signs: Temp Pulse Resp BP Pulse Ox 97.3 F 115 H 18 123/92 H 99 04/04/19 21:42 04/04/19 21:42 04/04/19 21:42 04/04/19 21:42 04/04/19 21:42 - Laboratory Result Diagrams: 04/04/19 22:31 04/04/19 22:31 Laboratory results interpreted by me: 04/04/19 04/04/19 22:31 22:31 WBC 16.9 H RDW 14.5 H Lymph % (Auto) 9.9 L Absolute Neuts (auto) 13.9 H Seg Neutrophils % 81.9 H BUN 24 H Glucose 122 H - EKG Interpretation by Me EKG shows normal: Sinus rhythm, ST-T Waves [place]/QRS: Left axis deviation, LAHB/LAFB Heart block present: 1st Degree Discharge - Discharge Clinical Impression: Diverticulitis of sigmoid colon, Leukocytosis, Dehydration Condition: Good Disposition: ADMITTED INPATIENT Admitting Provider: Surgicalist Unit Admitted: Surgical Floor Referrals: SHANIQUA RODRÍGUEZ MD [Primary Care Provider] - Follow up as needed
[2019-04-04] MEDS ORDERED: NORMAL SALINE 1000 ML 1,000 ML IV ONE (23:35)
--- NOTE | 2019-04-04 23:53 | EKG REPORT ---
SEVERITY:- ABNORMAL ECG - SINUS TACHYCARDIA PROBABLE LEFT ATRIAL ABNORMALITY LAD, CONSIDER LEFT ANTERIOR FASCICULAR BLOCK OLD ANTERIOR [place] : Confirmed by: Teddy Ballard MD 04-Apr-2019 23:52:33
[2019-04-05 00:11] LABS: APPEARANCE,URINE CLEAR; BILIRUBIN,URINE NEGATIVE (NEGATIVE); COLOR,URINE YELLOW; GLUCOSE, URINE NEGATIVE (NEGATIVE); KETONES,URINE NEGATIVE (NEGATIVE); PROTEIN,URINE NEGATIVE (NEGATIVE); URINE SPECIFIC GRAVITY 1.019; UROBILINOGEN,URINE NEGATIVE mg/dL (<2.0)
[2019-04-05] MEDS ORDERED: HYDROMORPHONE HCL INJ/PF 2 MG/ML AMPULE IV ONE (00:14)
--- NOTE | 2019-04-05 01:13 | RADIOLOGY REPORT (SQ) ---
EXAM DESCRIPTION: CT ABDOMEN PELVIS WITH IV CONTRAST COMPLETED DATE/TME: 04/04/2019 23:35 CLINICAL HISTORY: 53 years, Male, bilateral lower abd pain, guarding, no rebound, COMPARISON: 03/28/2019 TECHNIQUE: Axial CT images of the abdomen and pelvis were obtained after administration of IV contrast. Sagittal and coronal reformats were performed. DLP 664 Images stored on PACS. All CT scanners at this facility use dose modulation, iterative reconstruction, and/or weight based dosing when appropriate to reduce radiation dose to as low as reasonably achievable (ALARA). [facility]: Dose Right [facility]: CareDose [facility]: Dose Right [facility]: Teradose 4D [facility]: [employer] LIMITATIONS: None. FINDINGS: Lung bases are clear. Cholelithiasis. The liver, pancreas, spleen, and adrenal glands are unremarkable. Both kidneys enhance normally. The left kidney contains multiple nonobstructing stones measuring up to 4 mm in size. No evidence of urolithiasis on the right. There is no intraperitoneal free air or fluid. There is no lymphadenopathy. The abdominal aorta is normal in caliber. There is a moderate hiatal hernia. The small bowel is unremarkable. Appendicoliths are noted without evidence of appendicitis. There is worsening inflammation of the sigmoid colon. There is a tiny bubble of extraluminal air, which may be due to a microperforation. No focal fluid collection or abscess is identified. A Gagnon catheter is in place. The urinary bladder is unremarkable. There are no lytic or blastic bone lesions. IMPRESSION: Worsening sigmoid diverticulitis with a microperforation. No evidence of a phlegmon or abscess formation. Cholelithiasis. Nonobstructing left-sided nephrolithiasis. Moderate size hiatal TECHNICAL DOCUMENTATION: Quality ID # [id number]: Final reports with documentation of one or more dose reduction techniques (e.g., Automated exposure control, adjustment of the mA and/or kV according to patient size, use of iterative reconstruction technique) copyright 2010 [employer]- All Rights Reserved
[2019-04-05] MEDS ORDERED: METRONIDAZOLE 500 MG/NS RTU 100 ML IV ONE (01:45)
[2019-04-05] MEDS ORDERED: PIPERACILLIN/TAZOBACTAM 3.375 GM VIAL IV ONE (01:53)
--- NOTE | 2019-04-05 02:40 | PDOC H&P ---
History of Present Illness Admission Date/PCP: SHANIQUA RODRÍGUEZ MD Patient complains of: Lower abdominal pains History of Present Illness: ANTONINO CHUN is a 53 year old male who was initially diagnosed to have acute sigmoid diverticulitis on 03/10/2019. This was noted on a CAT scan. Patient was discharged on p.o. antibiotics and saw Dr. Rodríguez in the office. A repeat CT scan of the abdomen was done on 03/28/2019 which showed persistent acute sigmoid diverticulitis. Patient apparent was continued on p.o. antibiotics. Yesterday around noontime complained of severe left lower quadrant pains which was noted to be getting worse and radiating to his pubic and to the right lower quadrant areas associated with mild nausea and feeling of "hot and cold. Went to ED last night where CT scan of the abdomen revealed the worsening of sigmoid diverticulitis with microperforation. His white count is also elevated. Past Medical History GI Medical History: Reports: Gastroesophageal Reflux Disease, Hiatal Hernia Past Surgical History Past Surgical History: Reports: Orthopedic Surgery - right shoulder x4. 2 of these due to infection Comment Only: Cholecystectomy - Gallstones Social History Smoking Status: Current Every Day Smoker Cigarettes Packs Per Day: 1 Frequency of Alcohol Use: Rare Family History Family History: None Parental Family History Reviewed: Yes Children Family History Reviewed: No Sibling(s) Family History Reviewed.: Yes - 3 siblings with diabetes mellitus Medication/Allergy Home Medications: Hydroxyzine HCl [Atarax 50 mg Tablet] 50 mg PO TID PRN #30 tablet 07/15/18 Metronidazole [Flagyl] 500 mg PO TID #30 tablet 03/10/19 Ondansetron [Zofran Odt 4 mg Tablet] 1 - 2 tab PO Q4H PRN #15 tab.rapdis 02/13 11/30 Sulfamethoxazole/Trimethoprim [Bactrim Ds Tablet] 1 each PO BID #20 tablet 03/10/19 Allergies/Adverse Reactions: No Known Allergies Allergy (Verified 03/10/19 11:20) Review of Systems Constitutional: PRESENT: other - Complained of feeling hot and cold since yesterday Cardiovascular: PRESENT: other - No chest pains Respiratory: PRESENT: cough - Causes severe pains on the right lower quadrant Gastrointestinal: PRESENT: abdominal pain, nausea Genitourinary: PRESENT: difficulty urinating Musculoskeletal: PRESENT: other - Right shoulder pains Physical Exam Vital Signs: Temp Pulse Resp BP Pulse Ox 97.3 F 115 H 18 123/92 H 99 04/04/19 21:42 04/04/19 21:42 04/04/19 21:42 04/04/19 21:42 04/04/19 21:42 Intake & Output 04/03/19 04/04/19 04/05/19 06:59 06:59 06:59 Intake Total 1000 Balance 1000 Weight 71.4 kg General appearance: PRESENT: severe distress Head exam: PRESENT: atraumatic Eye exam: PRESENT: conjunctiva pink Mouth exam: PRESENT: dry mucosa Neck exam: PRESENT: full ROM Respiratory exam: PRESENT: clear to auscultation rosa maria Cardiovascular exam: PRESENT: RRR Pulses: PRESENT: normal radial pulses GI/Abdominal exam: PRESENT: soft, tenderness - Both lower quadrants with rebound on the right lower quadrant Rectal exam: PRESENT: deferred Extremities exam: PRESENT: full ROM Musculoskeletal exam: PRESENT: ambulatory Neurological exam: PRESENT: alert, oriented to person, oriented to place, oriented to time, oriented to situation Psychiatric exam: PRESENT: appropriate affect Skin exam: PRESENT: normal color, warm Results Laboratory Results: 04/04/19 22:31 04/04/19 22:31 04/04/19 04/04/19 04/04/19 22:31 22:31 22:31 WBC 16.9 H RBC 5.23 Hgb 14.8 Hct 43.2 MCV 83 MCH 28.3 MCHC 34.3 RDW 14.5 H Plt Count 257 Seg Neutrophils % 81.9 H Sodium 138.2 Potassium 3.8 Chloride 103 Carbon Dioxide 25 Anion Gap 10 BUN 24 H Creatinine 0.78 Est GFR ( Amer) > 60 Glucose 122 H Calcium 9.7 Total Bilirubin 1.1 AST 30 Alkaline Phosphatase 71 Total Protein 7.3 Albumin 4.1 Urine Color YELLOW Urine Appearance CLEAR Urine pH 5.0 Ur Specific [place] 1.019 Urine Protein NEGATIVE Urine Glucose (UA) NEGATIVE Urine Ketones NEGATIVE Urine Blood NEGATIVE Urine RBC (Auto) 1 Impressions: Abdomen/Pelvis CT 04/04/19 23:35 IMPRESSION: Worsening sigmoid diverticulitis with a microperforation. No evidence of a phlegmon or abscess formation. Cholelithiasis. Nonobstructing left-sided nephrolithiasis. Moderate size hiatal TECHNICAL DOCUMENTATION: Quality ID # 436: Final reports with documentation of one or more dose reduction techniques (e.g., Automated exposure control, adjustment of the mA and/or kV according to patient size, use of iterative reconstruction technique) copyright 2011 [employer]- All Rights Reserved Assessment & Plan - Diagnosis (1) Acute sigmoid diverticulitis with microp Is this a current diagnosis for this admission?: Yes - Time Time Spent: 30 to 50 Minutes - Inpatient Certification Medical Necessity: Need For IV Fluids, Need for Pain Control, Need for IV Antibiotics, Need for Surgery - Plan Summary Plan Summary: Assessment This is a 53-year-old male with known sigmoid diverticulitis noted on 03/10/2019. Patient was placed on p.o. antibiotics and discharged from ED. And had a CT scan of the abdomen on 03/28/[address] Rodríguez which showed persistent sigmoid diverticulitis but no abscess. Complained of severe lower abdominal pains yesterday and went to ED where CT scan of the abdomen revealed worsening sigmoid diverticulitis with microperforation. Patient is tender in both lower quadrants worse in the right lower quadrant which has rebound tenderness. His WBC is elevated Impression is persistent acute sigmoid diverticulitis with microperforation. Plans: Keep n.p.o. and hydrate. Start IV antibiotics May need exploration. Dr. Rodríguez will be in by 7 AM and we will reevaluate the patient then.
[2019-04-05] MEDS ORDERED: PIPERACILLIN/TAZOBACTAM 3.375 GM VIAL IV SCH (02:45)
[2019-04-05] MEDS ORDERED: ONDANSETRON HCL INJ/PF 4 MG/2 ML SDV IV PRN (03:00)
[2019-04-05] MEDS: HYDROMORPHONE HCL INJ/PF 2 MG/ML AMPULE IV PRN ×4 (03:36→18:25)
[2019-04-05] MEDS: DEXTROSE 5%-LACTATED RINGERS 1,000 ML IV PRN ×2 (03:36→08:21)
[2019-04-05] MEDS ORDERED: INFLUENZA QUAD (6MOS+) 2019-20 VAC 0.5 ML SYR IM ONE (06:51)
[2019-04-05] MEDS: PIPERACILLIN SODIUM/TAZOBACTAM 3.375 GM in NORMAL SALINE 100 ML IV SCH ×3 (08:53→20:41)
[2019-04-05] MEDS ORDERED: FENTANYL CITRATE INJ/PF 250 MCG/5 ML AMPULE ONE (10:43)
[2019-04-05] MEDS ORDERED: MIDAZOLAM 2 MG/2 ML INJ ONE (10:43)
[2019-04-05] MEDS ORDERED: PROPOFOL INJ 200 MG/20 ML VIAL IV ONE (10:43)
[2019-04-05] MEDS ORDERED: HYDROMORPHONE HCL INJ/PF 2 MG/ML AMPULE ONE (10:43)
[2019-04-05] MEDS ORDERED: IPRATROPIUM/ALBUTEROL 0.5-2.5 MG/3 ML AMPUL NEB ONE (10:48)
[2019-04-05] MEDS ORDERED: MEPERIDINE HCL/PF INJ 25 MG/1 ML DISP.SYRIN IV PRN (12:06)
[2019-04-05] MEDS ORDERED: MORPHINE SULFATE 10 MG/ML INJ IV PRN (12:06)
[2019-04-05] MEDS ORDERED: DIPHENHYDRAMINE HCL 50 MG/ML VIAL IV PRN (12:06)
[2019-04-05] MEDS ORDERED: FENTANYL CITRATE INJ/PF 100 MCG/2 ML AMPUL IV PRN ×3 (12:06)
[2019-04-05] MEDS ORDERED: PROMETHAZINE HCL INJ 25 MG/1 ML VIAL IV PRN (12:06)
--- NOTE | 2019-04-05 12:43 | Operative Report ---
Nonrecallable Operative Report DATE OF SURGERY: 04/05/19 PREOPERATIVE DIAGNOSIS: Perforated diverticulitis POSTOPERATIVE DIAGNOSIS: Perforated diverticulitis OPERATION: Exploratory laparotomy with sigmoid colectomy and end colostomy SURGEON: SHANIQUA RODRÍGUEZ ANESTHESIA: GA TISSUE REMOVED OR ALTERED: Sigmoid colon COMPLICATIONS: None ESTIMATED BLOOD LOSS: 25 cc INTRAOPERATIVE FINDINGS: Perforated sigmoid colon with localized peritonitis PROCEDURE: Patient was brought to the operating room awake alert stable condition placed in the operative table supine position induced under general anesthesia intubated after appropriate timeout site verification the abdomen was prepped and draped in usual sterile fashion a midline incision was used from the umbilicus to the pubic symphysis. Using Bovie cautery we dissected down to the anterior rectus fascia which was opened with Bovie cautery. Upon entering the abdominal cavity there was purulent material noted in the abdominal cavity most on the left side we eviscerated the small bowel and then irrigated with approximately 4 L of normal saline. Once we complete irrigation the sigmoid colon was palpated was noted to be inflamed with a perforation on the antimesenteric enteric side with a small amount of feculent peritonitis noted next to the loop of sigmoid. The sigmoid colon and descending colon were mobilized from the left lateral wall along the white line of [place] with Bovie cautery we identified the left ureter that point. The rectum was uninvolved therefore we picked a point distal on the sigmoid colon proximal rectum where we cleared the peritoneum off the colon and then came across it with one firing of the TIA 60 stapler. The distal end of the colon was controlled with one firing of the AKIKO stapler. The proximal rectum was marked with 2 stitches of 2-0 Prolene suture. The sigmoid colon and distal descending colon were mobilized further along the white line of Toldt to allow for no tension colostomy. I amputated off the infected portion of sigmoid colon with one firing of the TA 60 stapler. Remove the specimen. We then created a skin defect in the left anterior abdominal wall with Bovie cautery a stellate incision was made in the anterior and posterior sheaths of the rectus fascia and the muscle was retracted medially the descending colon was pulled through the defect. The abdominal cavity was then copiously irrigated normal saline suctioned dry confirm no further bleeding we closed the fascia in 1 layer with a running #1 double loop PDS suture.. The skin was then closed with loosely placed surgical saurabh and 5 Telfa pledgets. The colostomy was then matured to the anterior abdominal wall with interrupted placed 3-0 Vicryl sutures. Sterile colostomy appliance was placed sterile dressing was placed on the midline wound. This completed the procedure sponge needle counts were correct x2 blood loss is approximately 25 cc the patient was transferred to recovery in stable condition
[2019-04-05] MEDS ORDERED: DEXTROSE 50%-WATER 25 GM/50 ML DISP.SYRIN IV PRN ×2 (12:45)
[2019-04-05] MEDS ORDERED: GLUCAGON,HUMAN RECOMB 1 MG INJ SUBCUT PRN (12:45)
[2019-04-05] MEDS ORDERED: DEXTROSE 40% GEL 15 GM TUBE PO PRN ×2 (12:45)
[2019-04-05] MEDS: HYDROMORPHONE HCL INJ/PF 2 MG/ML AMPULE ONE ×2 (12:57→13:15)
[2019-04-05] MEDS ORDERED: ACETAMINOPHEN 1,000 MG/100 ML RTUPB IV ONE (13:46)
[2019-04-05] MEDS: HEPARIN SOD (PORCINE) 5,000 UNIT/ML 1 ML VIAL SUBCUT SCH ×2 (14:33→21:56)
[2019-04-05] MEDS: POTASSI CL 20 MEQ/D5-1/2NS 1L 1,000 ML IV PRN (17:19)
[2019-04-05] MEDS ORDERED: NEOSTIGMINE METHYLSULFATE 10 MG/10 ML VIAL ONE (17:38)
[2019-04-05] MEDS ORDERED: GLYCOPYRROLATE 1 MG/5 ML VIAL ONE (17:38)
[2019-04-05] MEDS ORDERED: SUCCINYLCHOLINE CHLORIDE INJ 200 MG/10 ML VIAL ONE (17:38)
[2019-04-05] MEDS ORDERED: ONDANSETRON HCL INJ/PF 4 MG/2 ML SDV ONE (17:38)
[2019-04-05] MEDS ORDERED: ROCURONIUM BROMIDE INJ 50 MG/5 ML VIAL IV ONE (17:38)
[2019-04-05] MEDS ORDERED: LIDOCAINE 2% INJ-PF (20 MG/ML) 2 ML AMPUL ONE (17:38)
[2019-04-05] MEDS ORDERED: DEXAMETHASONE SOD PHOSPHATE INJ 4 MG/1 ML VIAL ONE (17:38)
[2019-04-05] MEDS ORDERED: FAMOTIDINE INJ/PF 20 MG/2 ML SDV IV ONE (19:45)
[2019-04-05] MEDS: METOCLOPRAMIDE HCL INJ/PF 10 MG/2 ML SDV IV SCH (20:41)
[2019-04-05] MEDS: FAMOTIDINE INJ/PF 20 MG/2 ML SDV IV SCH (21:56)
[2019-04-05] MEDS: MORPHINE SULFATE 10 MG/ML INJ IV PRN (23:10)
[2019-04-06] MEDS: HYDROMORPHONE HCL INJ/PF 2 MG/ML AMPULE IV PRN ×6 (01:08→22:34)
[2019-04-06] MEDS: METOCLOPRAMIDE HCL INJ/PF 10 MG/2 ML SDV IV SCH ×4 (03:02→22:35)
[2019-04-06] MEDS: MORPHINE SULFATE 10 MG/ML INJ IV PRN ×3 (03:02→13:16)
[2019-04-06] MEDS: POTASSI CL 20 MEQ/D5-1/2NS 1L 1,000 ML IV PRN ×2 (04:57→18:36)
[2019-04-06] MEDS: PIPERACILLIN SODIUM/TAZOBACTAM 3.375 GM in NORMAL SALINE 100 ML IV SCH ×4 (04:57→22:34)
[2019-04-06] MEDS: HEPARIN SOD (PORCINE) 5,000 UNIT/ML 1 ML VIAL SUBCUT SCH ×3 (05:29→22:35)
[2019-04-06 05:58] LABS: ABSOLUTE LYMPHOCYTES (AUTO) 1.6 10^3/uL (0.5-4.7); ABSOLUTE MONOCYTES (AUTO) 1.1 10^3/uL (0.1-1.4); ABSOLUTE NEUT (AUTO) 12.8 10^3/uL (1.7-8.2); BASOPHILS % (AUTO) 0.3 % (0-2); EOSINOPHILS % (AUTO) 0.1 % (0-6); HEMATOCRIT 37.6 % (37.9-51.0); LYMPHOCYTES % (AUTO) 10.4 % (13-45); MEAN CORPUSCULAR HEMOGLOBIN 28.6 pg (27.0-33.4); MEAN CORPUSCULAR HGB CONC 34.5 g/dL (32.0-36.0); MEAN CORPUSCULAR VOLUME 83 fl (80-97); MONOCYTES % (AUTO) 7.3 % (3-13); PLATELET COUNT 236 10^3/uL (150-450); RED BLOOD COUNT 4.53 10^6/uL (4.35-5.55); RED CELL DISTRIBUTION WIDTH 14.9 % (11.5-14.0); SEGMENTED NEUTROPHILS % (AUTO) 81.9 % (42-78); TOTAL CELLS COUNTED % (AUTO) 100 %; WHITE BLOOD COUNT 15.6 10^3/uL (4.0-10.5)
[2019-04-06 06:19] LABS: ANION GAP 7 (5-19); BLOOD UREA NITROGEN 14 mg/dL (7-20); CARBON DIOXIDE 28 mmol/L (22-30); CHLORIDE 100 mmol/L (98-107); GLUCOSE 133 mg/dL (75-110); POTASSIUM 4.2 mmol/L (3.6-5.0)
--- NOTE | 2019-04-06 07:52 | PDOC PROGRESS REPORT ---
Subjective Progress Note for:: 04/06/19 Subjective:: + incisional pain Reason For Visit: ACUTE SIGMOID DIVERTICULITIS WITH MICROPERFORATION Physical Exam Vital Signs: Temp Pulse Resp BP Pulse Ox 98.4 F 78 16 124/73 99 04/06/19 03:58 04/06/19 03:58 04/06/19 03:58 04/06/19 03:58 04/06/19 03:58 Intake & Output 04/05/19 04/06/19 04/07/19 06:59 06:59 06:59 Intake Total 1000 5530 Output Total 100 1900 Balance 900 3630 Weight 73.3 kg 73 kg General appearance: PRESENT: mild distress Head exam: PRESENT: normocephalic Eye exam: PRESENT: EOMI Mouth exam: PRESENT: moist Neck exam: PRESENT: full ROM Respiratory exam: PRESENT: clear to auscultation rosa maria Cardiovascular exam: PRESENT: RRR Pulses: PRESENT: normal radial pulses, normal femoral pulses GI/Abdominal exam: PRESENT: other - incisional tenderness, stoma viable, no stool or flatus abd sl tympanitic Rectal exam: PRESENT: deferred Gentrourinary exam: PRESENT: indwelling catheter Extremities exam: PRESENT: full ROM Musculoskeletal exam: PRESENT: full ROM Neurological exam: PRESENT: alert, awake, oriented to person, oriented to place, oriented to time, oriented to situation Psychiatric exam: PRESENT: appropriate affect Skin exam: PRESENT: dry Results Laboratory Results: 04/06/19 05:20 04/06/19 05:20 04/05/19 04/06/19 04/06/19 09:20 05:20 05:20 WBC 15.6 H RBC 4.53 Hgb 13.0 L Hct 37.6 L MCV 83 MCH 28.6 MCHC 34.5 RDW 14.9 H Plt Count 236 Seg Neutrophils % 81.9 H Sodium 134.5 L Potassium 4.2 Chloride 100 Carbon Dioxide 28 Anion Gap 7 BUN 14 Creatinine 0.59 Est GFR ( Amer) > 60 Glucose 133 H Calcium 9.0 Blood Type A NEGATIVE Antibody Screen NEGATIVE Impressions: Abdomen/Pelvis CT 04/04/19 23:35 IMPRESSION: Worsening sigmoid diverticulitis with a microperforation. No evidence of a phlegmon or abscess formation. Cholelithiasis. Nonobstructing left-sided nephrolithiasis. Moderate size hiatal TECHNICAL DOCUMENTATION: Quality ID # 436: Final reports with documentation of one or more dose reduction techniques (e.g., Automated exposure control, adjustment of the mA and/or kV according to patient size, use of iterative reconstruction technique) copyright 2011 [employer]- All Rights Reserved Assessment & Plan - Time Time Spent with patient: 25-34 minutes - Plan Summary Plan Summary: s/p sigmoid colectomy with colostomy for perfed diverticulitis doing sl better today abd sl distended, tympanitic stoma sl dusky, but viable pt with some heartburn suspect he may need ng will cont mckeon till tomorrow upout of bed today.
[2019-04-06] MEDS ORDERED: PHARMACY COMMUNICATION ORDER MC NR (09:00)
[2019-04-06] MEDS: FAMOTIDINE INJ/PF 20 MG/2 ML SDV IV SCH ×2 (09:37→22:34)
--- NOTE | 2019-04-06 11:06 | RADIOLOGY REPORT (SQ) ---
EXAM DESCRIPTION: KUB/ABDOMEN (SINGLE VIEW) COMPLETED DATE/TIME: 04/06/2019 10:41 am REASON FOR STUDY: NG tube placement COMPARISON: None. NUMBER OF VIEWS: One view. TECHNIQUE: Upright radiographic image of the abdomen acquired. LIMITATIONS: None. FINDINGS: Nasogastric tube tip overlies the stomach. Gas-filled loops of nondilated large and small bowel. IMPRESSION: Nasogastric tube in the stomach. TECHNICAL DOCUMENTATION: JOB ID: [id number] [employer]- All Rights Reserved Reading location - IP/workstation name: [email or web address]
[2019-04-06] MEDS ORDERED: PHENOL/SODIUM PHENOLATE 100 SPRAY/177 ML BOTTLE PO PRN (19:19)
[2019-04-06] MEDS: IPRATROPIUM/ALBUTEROL 0.5-2.5 MG/3 ML AMPUL NEB SCH (20:00)
[2019-04-06] MEDS ORDERED: PHENOL/SODIUM PHENOLATE 100 SPRAY/177 ML BOTTLE ONE (20:21)
[2019-04-07] MEDS: HYDROMORPHONE HCL INJ/PF 2 MG/ML AMPULE IV PRN ×7 (01:37→21:36)
[2019-04-07] MEDS: IPRATROPIUM/ALBUTEROL 0.5-2.5 MG/3 ML AMPUL NEB SCH ×4 (02:18→20:43)
[2019-04-07] MEDS: PIPERACILLIN SODIUM/TAZOBACTAM 3.375 GM in NORMAL SALINE 100 ML IV SCH ×4 (03:15→21:02)
[2019-04-07] MEDS: METOCLOPRAMIDE HCL INJ/PF 10 MG/2 ML SDV IV SCH ×4 (03:15→21:02)
[2019-04-07 05:49] LABS: ABSOLUTE EOSINOPHILS # (AUTO) 0.1 10^3/uL (0.0-0.6); ABSOLUTE LYMPHOCYTES (AUTO) 1.2 10^3/uL (0.5-4.7); ABSOLUTE MONOCYTES (AUTO) 1.2 10^3/uL (0.1-1.4); ABSOLUTE NEUT (AUTO) 11.8 10^3/uL (1.7-8.2); BASOPHILS % (AUTO) 0.2 % (0-2); EOSINOPHILS % (AUTO) 0.8 % (0-6); HEMATOCRIT 36.4 % (37.9-51.0); HEMOGLOBIN 12.4 g/dL (13.5-17.0); LYMPHOCYTES % (AUTO) 8.3 % (13-45); MEAN CORPUSCULAR HEMOGLOBIN 28.5 pg (27.0-33.4); MEAN CORPUSCULAR HGB CONC 34.1 g/dL (32.0-36.0); MEAN CORPUSCULAR VOLUME 84 fl (80-97); MONOCYTES % (AUTO) 8.1 % (3-13); PLATELET COUNT 245 10^3/uL (150-450); RED BLOOD COUNT 4.35 10^6/uL (4.35-5.55); RED CELL DISTRIBUTION WIDTH 14.5 % (11.5-14.0); SEGMENTED NEUTROPHILS % (AUTO) 82.6 % (42-78); TOTAL CELLS COUNTED % (AUTO) 100 %; WHITE BLOOD COUNT 14.3 10^3/uL (4.0-10.5)
[2019-04-07] MEDS: HEPARIN SOD (PORCINE) 5,000 UNIT/ML 1 ML VIAL SUBCUT SCH ×3 (05:59→21:01)
[2019-04-07] MEDS: POTASSI CL 20 MEQ/D5-1/2NS 1L 1,000 ML IV PRN ×2 (06:00→18:35)
[2019-04-07 06:11] LABS: ANION GAP 10 (5-19); BLOOD UREA NITROGEN 11 mg/dL (7-20); CARBON DIOXIDE 26 mmol/L (22-30); CHLORIDE 99 mmol/L (98-107); GLUCOSE 136 mg/dL (75-110); POTASSIUM 3.8 mmol/L (3.6-5.0)
[2019-04-07] MEDS: ONDANSETRON HCL INJ/PF 4 MG/2 ML SDV IV PRN ×2 (08:37→14:59)
[2019-04-07] MEDS: FAMOTIDINE INJ/PF 20 MG/2 ML SDV IV SCH ×2 (09:29→21:02)
--- NOTE | 2019-04-07 11:15 | PDOC PROGRESS REPORT ---
Subjective Progress Note for:: 04/07/19 Subjective:: Less pains but still with occasional nausea relieved with Zofran Reason For Visit: ACUTE SIGMOID DIVERTICULITIS WITH MICROPERFORATION Physical Exam Vital Signs: Temp Pulse Resp BP Pulse Ox 98.1 F 113 H 18 142/90 H 97 04/07/19 08:24 04/07/19 08:24 04/07/19 08:24 04/07/19 08:24 04/07/19 08:24 Intake & Output 04/06/19 04/07/19 04/08/19 06:59 06:59 06:59 Intake Total 5530 2217 100 Output Total 1900 1950 Balance 3630 267 100 Weight 73 kg 73.8 kg Exam: Colostomy looks viable. Incision dressings soaked with serosanguineous fluid. Abdomen is not distended with minimal incisional tenderness. Colostomy not functioning yet NG tube is been draining 450 cc since yesterday. Results Laboratory Results: 04/07/19 04:40 04/07/19 04:40 04/07/19 04/07/19 04:40 04:40 WBC 14.3 H RBC 4.35 Hgb 12.4 L Hct 36.4 L MCV 84 MCH 28.5 MCHC 34.1 RDW 14.5 H Plt Count 245 Seg Neutrophils % 82.6 H Sodium 135.3 L Potassium 3.8 Chloride 99 Carbon Dioxide 26 Anion Gap 10 BUN 11 Creatinine 0.66 Est GFR ( Amer) > 60 Glucose 136 H Calcium 9.0 04/05/19 11:40 Abdomen - Specimen From Or Gram Stain - Final Impressions: Abdomen/Pelvis CT 04/04/19 23:35 IMPRESSION: Worsening sigmoid diverticulitis with a microperforation. No evidence of a phlegmon or abscess formation. Cholelithiasis. Nonobstructing left-sided nephrolithiasis. Moderate size hiatal TECHNICAL DOCUMENTATION: Quality ID # 436: Final reports with documentation of one or more dose reduction techniques (e.g., Automated exposure control, adjustment of the mA and/or kV according to patient size, use of iterative reconstruction technique) copyright 2011 [employer]- All Rights Reserved KUB X-Ray 04/06/19 00:00 IMPRESSION: Nasogastric tube in the stomach. Assessment & Plan - Diagnosis (1) Acute sigmoid diverticulitis with microp Is this a current diagnosis for this admission?: Yes - Time Time Spent with patient: 15-24 minutes - Inpatient Certification Medical Necessity: Need For IV Fluids, Need for Pain Control, Need for IV Antibiotics - Plan Summary Plan Summary: Postop day 2 post Bhatt's procedure Plans: Continue NG tube and IV fluids. Continue IV antibiotics We will DC the NG tube when colostomy starts to function hopefully in the next 24 hours
[2019-04-08] MEDS: HYDROMORPHONE HCL INJ/PF 2 MG/ML AMPULE IV PRN ×4 (00:44→20:11)
[2019-04-08] MEDS: IPRATROPIUM/ALBUTEROL 0.5-2.5 MG/3 ML AMPUL NEB SCH ×4 (02:03→20:04)
[2019-04-08] MEDS: PIPERACILLIN SODIUM/TAZOBACTAM 3.375 GM in NORMAL SALINE 100 ML IV SCH ×4 (03:41→20:11)
[2019-04-08] MEDS: METOCLOPRAMIDE HCL INJ/PF 10 MG/2 ML SDV IV SCH ×4 (03:41→20:12)
[2019-04-08 05:50] LABS: ABSOLUTE BASOPHILS # (AUTO) 0.1 10^3/uL (0.0-0.2); ABSOLUTE EOSINOPHILS # (AUTO) 0.6 10^3/uL (0.0-0.6); ABSOLUTE LYMPHOCYTES (AUTO) 1.6 10^3/uL (0.5-4.7); ABSOLUTE MONOCYTES (AUTO) 1.2 10^3/uL (0.1-1.4); ABSOLUTE NEUT (AUTO) 8.7 10^3/uL (1.7-8.2); BASOPHILS % (AUTO) 0.7 % (0-2); HEMATOCRIT 34.2 % (37.9-51.0); HEMOGLOBIN 11.8 g/dL (13.5-17.0); MEAN CORPUSCULAR HEMOGLOBIN 28.7 pg (27.0-33.4); MEAN CORPUSCULAR HGB CONC 34.6 g/dL (32.0-36.0); MEAN CORPUSCULAR VOLUME 83 fl (80-97); MONOCYTES % (AUTO) 9.8 % (3-13); PLATELET COUNT 258 10^3/uL (150-450); RED BLOOD COUNT 4.12 10^6/uL (4.35-5.55); RED CELL DISTRIBUTION WIDTH 14.4 % (11.5-14.0); SEGMENTED NEUTROPHILS % (AUTO) 71.5 % (42-78); TOTAL CELLS COUNTED % (AUTO) 100 %; WHITE BLOOD COUNT 12.1 10^3/uL (4.0-10.5)
[2019-04-08 06:06] LABS: ANION GAP 10 (5-19); BLOOD UREA NITROGEN 11 mg/dL (7-20); CALCIUM 8.9 mg/dL (8.4-10.2); CARBON DIOXIDE 27 mmol/L (22-30); CHLORIDE 100 mmol/L (98-107); GLUCOSE 115 mg/dL (75-110)
[2019-04-08] MEDS: HEPARIN SOD (PORCINE) 5,000 UNIT/ML 1 ML VIAL SUBCUT SCH ×3 (06:44→22:08)
[2019-04-08] MEDS: POTASSI CL 20 MEQ/D5-1/2NS 1L 1,000 ML IV PRN ×2 (06:45→20:07)
[2019-04-08] MEDS: FAMOTIDINE INJ/PF 20 MG/2 ML SDV IV SCH ×2 (10:03→22:09)
--- NOTE | 2019-04-08 10:20 | PDOC PROGRESS REPORT ---
Subjective Progress Note for:: 04/08/19 Subjective:: Patient feels better; is ambulating in the halls; voiding without difficulty. Patient has a long history of chronic pain, takes narcotics at home for chronic right shoulder pain. Also has a long history of gastritis Reason For Visit: ACUTE SIGMOID DIVERTICULITIS WITH MICROPERFORATION Physical Exam Vital Signs: Temp Pulse Resp BP Pulse Ox 97.7 F 88 14 150/92 H 94 04/08/19 07:59 04/08/19 08:54 04/08/19 08:54 04/08/19 07:59 04/08/19 08:54 Intake & Output 04/07/19 04/08/19 04/09/19 06:59 06:59 06:59 Intake Total 2217 2400 Output Total 1950 2500 Balance 267 -100 Weight 73.8 kg 71.3 kg General appearance: PRESENT: mild distress, other - Nasogastric tube in position with 100 cc drainage overnight GI/Abdominal exam: PRESENT: other - Abdomen exposed. Original operative lydia ssing removed and Telfa yesenia removed from saurabh. No foul smell or drainage. Ostomy with gas minimal fluid Results Laboratory Results: 04/08/19 04:54 04/08/19 04:54 04/08/19 04/08/19 04:54 04:54 WBC 12.1 H RBC 4.12 L Hgb 11.8 L Hct 34.2 L MCV 83 MCH 28.7 MCHC 34.6 RDW 14.4 H Plt Count 258 Seg Neutrophils % 71.5 Sodium 137.1 Potassium 4.0 Chloride 100 Carbon Dioxide 27 Anion Gap 10 BUN 11 Creatinine 0.63 Est GFR ( Amer) > 60 Glucose 115 H Calcium 8.9 04/05/19 11:40 Abdomen - Specimen From Or Gram Stain - Final 04/05/19 11:40 Abdomen - Specimen From Or Wound Culture - Final Escherichia Coli Enterococcus Raffinosus Bacteroides Fragilis Group Anaerococcus (Peptostrep) Sp. Impressions: Abdomen/Pelvis CT 04/04/19 23:35 IMPRESSION: Worsening sigmoid diverticulitis with a microperforation. No evidence of a phlegmon or abscess formation. Cholelithiasis. Nonobstructing left-sided nephrolithiasis. Moderate size hiatal TECHNICAL DOCUMENTATION: Quality ID # 436: Final reports with documentation of one or more dose reduction techniques (e.g., Automated exposure control, adjustment of the mA and/or kV according to patient size, use of iterative reconstruction technique) copyright 2011 [employer]- All Rights Reserved KUB X-Ray 04/06/19 00:00 IMPRESSION: Nasogastric tube in the stomach. Assessment & Plan - Diagnosis (1) Acute sigmoid diverticulitis with microp Is this a current diagnosis for this admission?: Yes Plan: Impression: Patient is 3 days status post exploratory laparotomy, sigmoid colectomy, colostomy Bhatt's procedure for perforated diverticulitis, with early colostomy output; nasogastric tube drainage down. Ambulating, voiding without difficulty. Remains on IV Zosyn Recommendations: 1. DC nasogastric tube-done 2. Will add Toradol and acetaminophen, IV, 2 management regimen. Patient has a history of chronic pain, takes oral motor code on at home. 3. Patient also has a history of gastritis. Patient and state seem effective, so they will bring their home medications for patient's use. 4. Permit shower, continue ambulation, and start clear liquids slowly (2) Chronic pain Is this a current diagnosis for this admission?: Yes (3) History of gastritis Is this a current diagnosis for this admission?: Yes (4) Smoker Is this a current diagnosis for this admission?: Yes - Time Time Spent with patient: 15-24 minutes
[2019-04-08] MEDS: KETOROLAC TROMETHAMINE INJ/PF 30 MG/1 ML SDV IV SCH ×2 (11:12→18:02)
[2019-04-08] MEDS: ACETAMINOPHEN INJ/PF 1000 MG/100 ML SDV IV SCH ×2 (11:22→17:58)
[2019-04-08] MEDS ORDERED: MORPHINE SULFATE 10 MG/ML INJ IV ONE (13:30)
[2019-04-08] MEDS: OXYCODONE-ACETAMINOPHEN 5-325 MG TABLET PO PRN (22:09)
[2019-04-09] MEDS: ACETAMINOPHEN INJ/PF 1000 MG/100 ML SDV IV SCH ×5 (00:21→23:25)
[2019-04-09] MEDS: HYDROMORPHONE HCL INJ/PF 2 MG/ML AMPULE IV PRN ×6 (00:22→21:44)
[2019-04-09] MEDS: KETOROLAC TROMETHAMINE INJ/PF 30 MG/1 ML SDV IV SCH ×5 (00:31→23:25)
[2019-04-09] MEDS: IPRATROPIUM/ALBUTEROL 0.5-2.5 MG/3 ML AMPUL NEB SCH ×4 (01:59→20:28)
[2019-04-09] MEDS: PIPERACILLIN SODIUM/TAZOBACTAM 3.375 GM in NORMAL SALINE 100 ML IV SCH ×4 (03:24→20:52)
[2019-04-09] MEDS: METOCLOPRAMIDE HCL INJ/PF 10 MG/2 ML SDV IV SCH ×4 (03:25→21:45)
[2019-04-09] MEDS: OXYCODONE-ACETAMINOPHEN 5-325 MG TABLET PO PRN (05:09)
[2019-04-09] MEDS: HEPARIN SOD (PORCINE) 5,000 UNIT/ML 1 ML VIAL SUBCUT SCH ×3 (05:10→21:44)
[2019-04-09] MEDS ORDERED: POTASSI CL 20 MEQ/D5NS 1L 20 MEQ/1,000 ML RTUINJ IV ONE (07:50)
[2019-04-09] MEDS: POTASSI CL 20 MEQ/D5-1/2NS 1L 1,000 ML IV PRN (08:14)
[2019-04-09] MEDS: FAMOTIDINE INJ/PF 20 MG/2 ML SDV IV SCH ×2 (09:49→21:45)
[2019-04-09] MEDS: OXYCODONE HCL IR 5 MG TABLET PO PRN ×2 (09:49→20:08)
--- NOTE | 2019-04-09 14:07 | PDOC PROGRESS REPORT ---
Subjective Progress Note for:: 04/09/19 Reason For Visit: ACUTE SIGMOID DIVERTICULITIS WITH MICROPERFORATION Physical Exam Vital Signs: Temp Pulse Resp BP Pulse Ox 98.1 F 79 18 121/66 98 04/09/19 11:17 04/09/19 13:52 04/09/19 13:52 04/09/19 11:17 04/09/19 13:52 Intake & Output 04/08/19 04/09/19 04/10/19 06:59 06:59 06:59 Intake Total 2400 2800 100 Output Total 2500 0 Balance -100 2800 100 Weight 71.3 kg 70.3 kg Results Laboratory Results: 04/08/19 04:54 04/08/19 04:54 Impressions: Abdomen/Pelvis CT 04/04/19 23:35 IMPRESSION: Worsening sigmoid diverticulitis with a microperforation. No evidence of a phlegmon or abscess formation. Cholelithiasis. Nonobstructing left-sided nephrolithiasis. Moderate size hiatal TECHNICAL DOCUMENTATION: Quality ID # 436: Final reports with documentation of one or more dose reduction techniques (e.g., Automated exposure control, adjustment of the mA and/or kV according to patient size, use of iterative reconstruction technique) copyright 2011 [employer]- All Rights Reserved KUB X-Ray 04/06/19 00:00 IMPRESSION: Nasogastric tube in the stomach. Assessment & Plan - Diagnosis (1) Acute sigmoid diverticulitis with microp Is this a current diagnosis for this admission?: Yes - Time Time Spent with patient: Less than 15 minutes - Plan Summary Plan Summary: This is a 53-year-old male status post Bhatt's procedure for perforated diverticulitis. The patient reports increasing amounts of pain today. His is at the bedside, reporting that the Dilaudid makes him so sleepy that he forgets to breathe. The patient has been receiving 2 mg of Dilaudid per dose. I have discussed perioperative pain management with the and the patient. The patient takes oral narcotics at home, which lessens the effectiveness of narcotics for acute pain. I will continue the patient's Toradol and acetaminophen. I will also increase his oxycodone. I will reduce his Dilaudid dose to 1 mg per dose. Unfortunately, the patient will continue to experience some level of pain due to his tolerance. I have ensured the patient and his that I will do everything I can to safely address his pain concerns. Ostomy is red, with mild venous congestion. It is productive of air only. Advance to full liquid diet.
[2019-04-10] MEDS: HYDROMORPHONE HCL INJ/PF 2 MG/ML AMPULE IV PRN ×5 (01:18→23:39)
[2019-04-10] MEDS: IPRATROPIUM/ALBUTEROL 0.5-2.5 MG/3 ML AMPUL NEB SCH ×2 (01:22→07:42)
[2019-04-10] MEDS: OXYCODONE HCL IR 5 MG TABLET PO PRN ×3 (02:37→21:27)
[2019-04-10] MEDS: METOCLOPRAMIDE HCL INJ/PF 10 MG/2 ML SDV IV SCH ×4 (02:38→21:20)
[2019-04-10] MEDS: PIPERACILLIN SODIUM/TAZOBACTAM 3.375 GM in NORMAL SALINE 100 ML IV SCH ×2 (02:38→08:17)
[2019-04-10] MEDS: HEPARIN SOD (PORCINE) 5,000 UNIT/ML 1 ML VIAL SUBCUT SCH ×3 (05:46→22:09)
[2019-04-10] MEDS: KETOROLAC TROMETHAMINE INJ/PF 30 MG/1 ML SDV IV SCH ×3 (05:47→18:19)
[2019-04-10] MEDS: ACETAMINOPHEN INJ/PF 1000 MG/100 ML SDV IV SCH ×3 (05:48→18:19)
[2019-04-10] MEDS ORDERED: IPRATROPIUM/ALBUTEROL 0.5-2.5 MG/3 ML AMPUL NEB PRN (09:00)
--- NOTE | 2019-04-10 09:43 | PDOC PROGRESS REPORT ---
Subjective Progress Note for:: 04/10/19 Subjective:: Patient doing reasonably well, tolerating a diet. Minimal ostomy output. Voiding, showering. Reason For Visit: ACUTE SIGMOID DIVERTICULITIS WITH MICROPERFORATION Physical Exam Vital Signs: Temp Pulse Resp BP Pulse Ox 98.2 F 79 17 120/77 99 04/10/19 07:51 04/10/19 07:51 04/10/19 07:51 04/10/19 07:51 04/10/19 07:51 Intake & Output 04/09/19 04/10/19 04/11/19 06:59 06:59 06:59 Intake Total 3120 620 Output Total 300 300 Balance 2820 320 Weight 70.3 kg 71.9 kg General appearance: PRESENT: no acute distress GI/Abdominal exam: PRESENT: other - Abdomen examined. Soft. Minimally tender. [place] in place. Ostomy bag removed, and ostomy digitalized with lubricated finger. The ostomy is patent, and the passage through the abdominal wall fascia excellent. Results Laboratory Results: 04/08/19 04:54 04/08/19 04:54 04/05/19 07:17 Blood Blood Culture - Final NO GROWTH IN 5 DAYS 04/05/19 02:18 Blood Blood Culture - Final NO GROWTH IN 5 DAYS Impressions: Abdomen/Pelvis CT 04/04/19 23:35 IMPRESSION: Worsening sigmoid diverticulitis with a microperforation. No evidence of a phlegmon or abscess formation. Cholelithiasis. Nonobstructing left-sided nephrolithiasis. Moderate size hiatal TECHNICAL DOCUMENTATION: Quality ID # 436: Final reports with documentation of one or more dose reduction techniques (e.g., Automated exposure control, adjustment of the mA and/or kV according to patient size, use of iterative reconstruction technique) copyright 2011 [employer] All Rights Reserved KUB X-Ray 04/06/19 00:00 IMPRESSION: Nasogastric tube in the stomach. Assessment & Plan - Diagnosis (1) Acute sigmoid diverticulitis with microp Is this a current diagnosis for this admission?: Yes Plan: Impression: Postoperative day 5 status post exporter laparotomy, sigmoid colectomy, colostomy, doing well with p.o. tolerance, minimal colostomy output. Recommendations: 1. Reduced patient's pain medication to Dilaudid 1 mg every 3 hours 2. We will switch patient over from IV Zosyn to p.o. Augmentin 500 mg 3 times daily 3. Anticipate discharge home in the next 24 hours. (2) Chronic pain Is this a current diagnosis for this admission?: Yes (3) History of gastritis Is this a current diagnosis for this admission?: Yes (4) Smoker Is this a current diagnosis for this admission?: Yes - Time Time Spent with patient: 15-24 minutes
[2019-04-10] MEDS: FAMOTIDINE INJ/PF 20 MG/2 ML SDV IV SCH ×2 (10:05→21:20)
[2019-04-10] MEDS: AMOXICILLIN TR/POT CLAVULANATE 500-125 MG TAB PO SCH ×2 (14:29→21:20)
[2019-04-11] MEDS: ACETAMINOPHEN INJ/PF 1000 MG/100 ML SDV IV SCH ×2 (00:26→05:46)
[2019-04-11] MEDS: KETOROLAC TROMETHAMINE INJ/PF 30 MG/1 ML SDV IV SCH ×3 (00:26→12:08)
[2019-04-11] MEDS: METOCLOPRAMIDE HCL INJ/PF 10 MG/2 ML SDV IV SCH ×2 (03:31→10:04)
[2019-04-11] MEDS: OXYCODONE HCL IR 5 MG TABLET PO PRN ×2 (03:31→08:38)
[2019-04-11] MEDS: AMOXICILLIN TR/POT CLAVULANATE 500-125 MG TAB PO SCH (05:40)
[2019-04-11] MEDS: HEPARIN SOD (PORCINE) 5,000 UNIT/ML 1 ML VIAL SUBCUT SCH (05:49)
[2019-04-11 09:42] VITALS: BP 100/65
[2019-04-11] MEDS: FAMOTIDINE INJ/PF 20 MG/2 ML SDV IV SCH (10:04)
--- NOTE | 2019-04-11 10:15 | PDOC PROGRESS REPORT ---
Subjective Progress Note for:: 04/11/19 Subjective:: Feels well. Tolerating diet well. Knows how to take care of his colostomy. Reason For Visit: ACUTE SIGMOID DIVERTICULITIS WITH MICROPERFORATION Physical Exam Vital Signs: Temp Pulse Resp BP Pulse Ox 97.4 F 90 15 100/65 99 04/11/19 08:01 04/11/19 08:01 04/11/19 08:01 04/11/19 08:01 04/11/19 08:01 Intake & Output 04/10/19 04/11/19 04/12/19 06:59 06:59 06:59 Intake Total 620 2278 Output Total 300 650 Balance 320 1628 Weight 71.9 kg 69 kg General appearance: PRESENT: no acute distress, cooperative Respiratory exam: PRESENT: clear to auscultation rosa maria Cardiovascular exam: PRESENT: RRR GI/Abdominal exam: PRESENT: other - Soft, nondistended, nontender to palpation. Wound clean dry and intact with saurabh. Ostomy functioning well and appears pink. Extremities exam: PRESENT: other - No swelling and no tenderness Results Laboratory Results: 04/08/19 04:54 04/08/19 04:54 04/05/19 07:17 Blood Blood Culture - Final NO GROWTH IN 5 DAYS Impressions: Abdomen/Pelvis CT 04/04/19 23:35 IMPRESSION: Worsening sigmoid diverticulitis with a microperforation. No evidence of a phlegmon or abscess formation. Cholelithiasis. Nonobstructing left-sided nephrolithiasis. Moderate size hiatal TECHNICAL DOCUMENTATION: Quality ID # 436: Final reports with documentation of one or more dose reduction techniques (e.g., Automated exposure control, adjustment of the mA and/or kV according to patient size, use of iterative reconstruction technique) copyright 2011 [employer]- All Rights Reserved KUB X-Ray 04/06/19 00:00 IMPRESSION: Nasogastric tube in the stomach. Assessment & Plan - Diagnosis (1) Acute sigmoid diverticulitis with microp Is this a current diagnosis for this admission?: Yes Plan: Status post sigmoid colectomy with colostomy. Patient doing well. Will discharge patient home. - Time Time Spent with patient: 15-24 minutes
--- NOTE | 2019-04-11 10:25 | PDOC DISCHARGE SUMMARY ---
General - Admit/Disc Date/PCP Admission Date/Primary Care Provider: 04/05/19 03:31 SHANIQUA RODRÍGUEZ MD Discharge Date: 04/11/19 - Discharge Diagnosis Final Diagnosis: Perforated sigmoid diverticulitis - Assessment Summary: Patient underwent exploratory laparotomy with sigmoid colectomy with end colostomy by Dr. Rodríguez on April 05, 2019. Patient did well postoperatively. He had good function of his colostomy at the time of discharge and was comfortable with colostomy care. He was tolerating a solid diet well. He had no residual lower abdominal tenderness at the time of discharge. His wound looks good but the saurabh were left intact and will be removed at his follow-up. He is encouraged to stay active but avoid strenuous activity. He is to call us for any problems. He has been discharged home in good condition. He will follow-up with Dr. Rodríguez next week. Antibiotics were discontinued at discharge. Discharge medications Percocet 1 p.o. every 4 hours as needed pain. - Additional Information Resuscitation Status: Full Code Discharge Diet: As Tolerated Discharge Activity: Activity As Tolerated - Stay active but avoid strenuous activity. No lifting greater than 20 pounds. Referrals: SHANIQUA RODRÍGUEZ MD [Primary Care Provider] - Follow up as needed (S/P 04/05 SIGMOID COLECTOMY. FOLLOW UP IN 1 WEEK) Prescriptions: Oxycodone HCl/Acetaminophen [Percocet 5-325 mg Tablet] 1 tab PO ASDIR PRN #15 tablet PRN Reason: Home Medications: Esomeprazole Magnesium [Nexium] 22.5 mg PO BID 04/05/19 Methocarbamol [Robaxin 500 mg Tablet] 500 mg PO Q8HP PRN 04/05/19 Oxycodone HCl/Acetaminophen [Percocet 5-325 mg Tablet] 1 tab PO ASDIR PRN #15 tablet 04/11/19 History of Present Illiness History of Present Illness: ANTONINO CHUN is a 53 year old male Physical Exam Vital Signs: Temp Pulse Resp BP Pulse Ox 97.4 F 90 15 100/65 99 04/11/19 08:01 04/11/19 08:01 04/11/19 08:01 04/11/19 08:01 04/11/19 08:01 Intake & Output 04/10/19 04/11/19 04/12/19 06:59 06:59 06:59 Intake Total 096 0348 Output Total 506 449 Balance 320 1628 Weight 71.9 kg 69 kg Results Laboratory Results: WBC 12.1 10^3/uL (4.0-10.5) H 04/08/19 04:54 RBC 4.12 10^6/uL (4.35-5.55) L 04/08/19 04:54 Hgb 11.8 g/dL (13.5-17.0) L 04/08/19 04:54 Hct 34.2 % (37.9-51.0) L 04/08/19 04:54 MCV 83 fl (80-97) 04/08/19 04:54 MCH 28.7 pg (27.0-33.4) 04/08/19 04:54 MCHC 34.6 g/dL (32.0-36.0) 04/08/19 04:54 RDW 14.4 % (11.5-14.0) H 04/08/19 04:54 Plt Count 258 10^3/uL (150-450) 04/08/19 04:54 Lymph % (Auto) 13.0 % (13-45) 04/08/19 04:54 [place] % (Auto) 9.8 % (3-13) 04/08/19 04:54 Eos % (Auto) 5.0 % (0-6) 04/08/19 04:54 Baso % (Auto) 0.7 % (0-2) 04/08/19 04:54 Absolute Neuts (auto) 8.7 10^3/uL (1.7-8.2) H 04/08/19 04:54 Absolute Lymphs (auto) 1.6 10^3/uL (0.5-4.7) 04/08/19 04:54 Absolute Monos (auto) 1.2 10^3/uL (0.1-1.4) 04/08/19 04:54 Absolute Eos (auto) 0.6 10^3/uL (0.0-0.6) 04/08/19 04:54 Absolute Basos (auto) 0.1 10^3/uL (0.0-0.2) 04/08/19 04:54 Seg Neutrophils % 71.5 % (42-78) 04/08/19 04:54 Sodium 137.1 mmol/L (137-145) 04/08/19 04:54 Potassium 4.0 mmol/L (3.6-5.0) 04/08/19 04:54 Chloride 100 mmol/L (98-107) 04/08/19 04:54 Carbon Dioxide 27 mmol/L (22-30) 04/08/19 04:54 Anion Gap 10 (5-19) 04/08/19 04:54 BUN 11 mg/dL (7-20) 04/08/19 04:54 Creatinine 0.63 mg/dL (0.52-1.25) 04/08/19 04:54 Est GFR ( Amer) > 60 (>60) 04/08/19 04:54 Est GFR (MDRD) Non-Af > 60 (>60) 04/08/19 04:54 Glucose 115 mg/dL (75-110) H 04/08/19 04:54 Lactic Acid (Sepsis) 1.0 mmol/L (0.7-2.1) 04/05/19 02:18 Calcium 8.9 mg/dL (8.4-10.2) 04/08/19 04:54 Total Bilirubin 1.1 mg/dL (0.2-1.3) 04/04/19 22:31 Direct Bilirubin 0.2 mg/dL (0.0-0.4) 04/04/19 22:31 Neonat Total Bilirubin Not Reportable 04/04/19 22:31 Neonat Direct Bilirubin Not Reportable 04/04/19 22:31 Neonat Indirect Bili Not Reportable 04/04/19 22:31 AST 30 U/L (17-59) 04/04/19 22:31 ALT 20 U/L (<50) 04/04/19 22:31 Alkaline Phosphatase 71 U/L (38-126) 04/04/19 22:31 Total Protein 7.3 g/dL (6.3-8.2) 04/04/19 22:31 Albumin 4.1 g/dL (3.5-5.0) 04/04/19 22:31 Urine Color YELLOW 04/04/19 22:31 Urine Appearance CLEAR 04/04/19 22:31 Urine pH 5.0 (5.0-9.0) 04/04/19 22:31 Ur Specific [place] 1.019 04/04/19 22:31 Urine Protein NEGATIVE mg/dL (NEGATIVE) 04/04/19 22:31 Urine Glucose (UA) NEGATIVE mg/dL (NEGATIVE) 04/04/19 22:31 Urine Ketones NEGATIVE mg/dL (NEGATIVE) 04/04/19 22:31 Urine Blood NEGATIVE (NEGATIVE) 04/04/19 22:31 Urine Nitrite (Reflex) NEGATIVE (NEGATIVE) 04/04/19 22:31 Urine Bilirubin NEGATIVE (NEGATIVE) 04/04/19 22:31 Urine Urobilinogen NEGATIVE mg/dL (<2.0) 04/04/19 22:31 Leukocyte Esterase Rfl NEGATIVE (NEGATIVE) 04/04/19 22:31 Urine RBC (Auto) 1 /HPF 04/04/19 22:31 Urine WBC (Reflex) 1 /HPF 04/04/19 22:31 Urine Mucus (Auto) OCC /LPF 04/04/19 22:31 Urine Ascorbic Acid NEGATIVE (NEGATIVE) 04/04/19 22:31 Blood Type A NEGATIVE 04/05/19 09:20 Antibody Screen NEGATIVE 04/05/19 09:20 Impressions: Abdomen/Pelvis CT 04/04/19 23:35 IMPRESSION: Worsening sigmoid diverticulitis with a microperforation. No evidence of a phlegmon or abscess formation. Cholelithiasis. Nonobstructing left-sided nephrolithiasis. Moderate size hiatal TECHNICAL DOCUMENTATION: Quality ID # 436: Final reports with documentation of one or more dose reduction techniques (e.g., Automated exposure control, adjustment of the mA and/or kV according to patient size, use of iterative reconstruction technique) copyright 2011 [email or web address]- All Rights Reserved KUB X-Ray 04/06/19 00:00 IMPRESSION: Nasogastric tube in the stomach.
== END 2019-04-11 12:25 | disposition home health service (06) | DRG 331 ==
LOC: ER 21:34 → EH 04-05 03:31 → 4N 04-05 05:30
PROVIDERS: ADMIT Surgery; ATTEND Surgery
PROC: 0D1N0Z4 Bypass Sigmoid Colon to Cutaneous, Open Approach (ICD-10-PCS; 2019-04-05)
PROC: 0DTN0ZZ Resection of Sigmoid Colon, Open Approach (ICD-10-PCS; principal; 2019-04-05 11:30)
PROC: 3E02340 Introduction of Influenza Vaccine into Muscle, Percutaneous Approach (ICD-10-PCS; 2019-04-11)
DX: K57.20 Diverticulitis of large intestine with perforation and abscess without bleeding (principal); B96.20 Unspecified Escherichia coli [E. coli] as the cause of diseases classified elsewhere; K21.9 Gastro-esophageal reflux disease without esophagitis; B95.2 Enterococcus as the cause of diseases classified elsewhere; G89.29 Other chronic pain; F17.210 Nicotine dependence, cigarettes, uncomplicated; Z23 Encounter for immunization; Z79.899 Other long term (current) drug therapy
CPT/HCPCS: 36415; 51702; 74018; 74177; 80048; 80053; 81001; 83605; 840; 85025; 86850; 86900; 86901; 87040; 87070; 87075; 87077; 87186; 87205; 88307; 90686; 93005; 93010; 94640; 94667; 94668; 94799; 96361; 96365; 96375; 96376; 99285; J0131; J0330; J1100; J1170; J1644; J1885; J2250; J2270; J2405; J2543; J2704; J2710; J2765; J3010; J3480; J3490; J7030; J7050; J7121; J7620; S0028

== ENCOUNTER 2019-04-13 11:35 | Inpatient (IN) | payer OTHER ==
[2019-04-13] MEDS ORDERED: MORPHINE SULFATE 10 MG/ML INJ IV ONE ×2 (11:46→15:09)
[2019-04-13] MEDS ORDERED: ONDANSETRON HCL INJ/PF 4 MG/2 ML SDV IV ONE ×2 (11:46→13:58)
--- NOTE | 2019-04-13 11:47 | ER Document Report ---
ED Medical Screen (RME) - General Chief Complaint: Abdominal Pain Stated Complaint: ABDOMINAL PAIN/NAUSEA Time Seen by Provider: 04/13/19 11:43 Primary Care Provider: SHANIQUA RODRÍGUEZ MD [Primary Care Provider] - Follow up as needed Mode of Arrival: Ambulatory Information source: Patient Notes: Patient is a 53-year-old male with past medical history of diverticulitis and recent colectomy done at this facility presenting with chief complaint of nausea, abdominal pain and decreased output in his colostomy bag. Patient reports since yesterday he has had the decreased output. He states that he has belching foul smelling and foul tasting stomach contents. Exam: Midline abdominal incision with saurabh in place. Colostomy bag noted to left lower quadrant. Generalized abdominal tenderness with even the slightest palpation. I have greeted and performed a rapid initial assessment of this patient. A comprehensive ED assessment and evaluation of the patient, analysis of test results and completion of the medical decision making process will be conducted by additional ED providers. I have specifically instructed the patient or family members with the patient to immediately return to any nursing staff should anything change in the patient's condition or with their chief complaint. This medical record was dictated with voice recognizing software. There may be grammatical, syntax errors that are unintended. TRAVEL OUTSIDE OF THE [place] IN LAST 30 DAYS: No - Related Data Allergies/Adverse Reactions: No Known Allergies Allergy (Verified 04/13/19 11:43) Past Medical History Renal/ Medical History: Reports: Hx Kidney Stones. Denies: Hx Peritoneal Dialysis GI Medical History: Reports: Hx Gastroesophageal Reflux Disease, Hx Hiatal Hernia Psychiatric Medical History: Denies: Hx Depression Past Surgical History: Reports: Hx Kidney (Renal Surgery) - laser lithotripsy and stent placed, Hx Orthopedic Surgery - right shoulder x4. 2 of these due to infectionComment Only: Hx Cholecystectomy - Gallstones Physical Exam - Vital signs Vitals: Temp Pulse Resp BP Pulse Ox 97.5 F 95 24 H 132/87 H 98 04/13/19 11:42 04/13/19 11:42 04/13/19 11:42 04/13/19 11:42 04/13/19 11:42 Course - Vital Signs Vital signs: Temp Pulse Resp BP Pulse Ox 97.5 F 95 24 H 132/87 H 98 04/13/19 11:42 04/13/19 11:42 04/13/19 11:42 04/13/19 11:42 04/13/19 11:42 Doctor's Discharge - Discharge Referrals: SHANIQUA RODRÍGUEZ MD [Primary Care Provider] - Follow up as needed
--- NOTE | 2019-04-13 12:21 | RADIOLOGY REPORT (SQ) ---
EXAM DESCRIPTION: KUB/ABDOMEN (SINGLE VIEW) COMPLETED DATE/TIME: 04/13/2019 12:05 pm REASON FOR STUDY: eval for intestinal obstruction COMPARISON: 04/06/2019. NUMBER OF VIEWS: One view. TECHNIQUE: Supine radiographic image of the abdomen acquired. LIMITATIONS: None. FINDINGS: BOWEL GAS PATTERN: Diffuse small bowel dilation. CALCIFICATIONS: No suspicious calcifications. SOFT TISSUES: No gross mass or suggestion of organomegaly. HARDWARE: Midline skin saurabh. Ostomy in the left lower quadrant. BONES: No acute fracture. No worrisome bone lesions. OTHER: No other significant finding. IMPRESSION: DIFFUSE SMALL BOWEL DILATION. ILEUS VERSUS OBSTRUCTION. TECHNICAL DOCUMENTATION: JOB ID: [id number] Number 1 [employer]- All Rights Reserved Reading location - IP/workstation name: [email or web address]
[2019-04-13] MEDS ORDERED: NORMAL SALINE 1000 ML 1,000 ML IV ONE (12:24)
--- NOTE | 2019-04-13 12:29 | ER Document Report ---
ED GI/ - General Chief Complaint: Abdominal Pain Stated Complaint: ABDOMINAL PAIN/NAUSEA Time Seen by Provider: 04/13/19 11:43 Primary Care Provider: SHANIQUA RODRÍGUEZ MD [Primary Care Provider] - Follow up as needed Mode of Arrival: Ambulatory Notes: Patient is a 53-year-old male who presents emergency department with a chief complaint of abdominal pain. Patient reports he did have an exploratory laparotomy with a sigmoid colectomy on April 05 here at [facility] by Dr. Rodríguez. Patient reports he was discharged from the hospital 2 days ago on the . Patient reports yesterday he ate some beef stew around 3 PM and afterwards began to have some abdominal discomfort. Patient reports the abdominal pain to his lower abdomen was continued to get worse throughout the night and this morning. Patient reports he attempted eat some watermelon this morning but that it did upset his stomach. Patient reports he has vomited 3 large amounts of emesis while here in the emergency department. Patient reports he does feel slightly better after vomiting. Patient reports he is tender around the surgical site. Patient reports he did empty his colostomy bag this morning but has not had much of an output since then. Patient denies fever. TRAVEL OUTSIDE OF THE [place] IN LAST 30 DAYS: No - Related Data Allergies/Adverse Reactions: No Known Allergies Allergy (Verified 04/13/19 11:43) Past Medical History - General Information source: Patient - Social History Smoking Status: Current Every Day Smoker Chew tobacco use (# tins/day): No Frequency of alcohol use: None Drug Abuse: None Lives with: Family, Spouse/Significant other Family History: None Patient has suicidal ideation: No Patient has homicidal ideation: No - Past Medical History Cardiac Medical History: Reports: None Pulmonary Medical History: Reports: None EENT Medical History: Reports: None Neurological Medical History: Reports: None Endocrine Medical History: Reports: None Renal/ Medical History: Reports: Hx Kidney Stones. Denies: Hx Peritoneal Dialysis Malignancy Medical History: Reports None GI Medical History: Reports: Hx Gastroesophageal Reflux Disease, Hx Hiatal Hernia Musculoskeletal Medical History: Reports None Skin Medical History: Reports None Psychiatric Medical History: Reports: None Denies: Hx Depression Traumatic Medical History: Reports: None Infectious Medical History: Reports: None Past Surgical History: Reports: Hx Kidney (Renal Surgery) - laser lithotripsy and stent placed, Hx Orthopedic Surgery - right shoulder x4. 2 of these due to infectionComment Only: Hx Cholecystectomy - Gallstones Review of Systems - Review of Systems Constitutional: No symptoms reported EENT: No symptoms reported Cardiovascular: No symptoms reported Respiratory: No symptoms reported Gastrointestinal: See HPI Genitourinary: No symptoms reported Male Genitourinary: No symptoms reported Musculoskeletal: No symptoms reported Skin: No symptoms reported Hematologic/Lymphatic: No symptoms reported Neurological/Psychological: No symptoms reported Physical Exam - Vital signs Vitals: Temp Pulse Resp BP Pulse Ox 97.5 F 95 24 H 132/87 H 98 04/13/19 11:42 04/13/19 11:42 04/13/19 11:42 04/13/19 11:42 04/13/19 11:42 Interpretation: Normal - Notes Notes: GENERAL: Well-appearing, well-nourished and in no acute distress. HEAD: Atraumatic, normocephalic. EYES: Pupils equal round and reactive to light, extraocular movements intact, sclera anicteric, conjunctiva are normal. ENT: Nares patent, oropharynx clear without exudates. Moist mucous membranes. NECK: Normal range of motion, supple without lymphadenopathy or JVD. LUNGS: Breath sounds clear to auscultation bilaterally and equal. No wheezes rales or rhonchi. HEART: Regular rate and rhythm without murmurs, rubs or gallops. ABDOMEN: Soft, generalized tenderness to lower abdomen, vertical lower abd. midline scar noted with saurabh intact - no dehiscence or drainage from the site, there is a colostomy bag with stoma present to the left lower quadrant, there is a small amount of light brown liquid stool in the bag with what appears to be particles of food, normoactive bowel sounds. No masses appreciated. BACK: No cervical, thoracic, lumbar midline tenderness. No saddle anesthesia, normal distal neurovascular exam. GENITOURINARY: Deferred. EXTREMITIES: Normal range of motion, no pitting or edema. No clubbing or cyanosis. NEUROLOGICAL: Cranial nerves II through XII grossly intact. Normal speech, normal gait. PSYCH: Normal mood, normal affect. SKIN: Warm, Dry, normal turgor, no rashes or lesions noted. Course - Re-evaluation Re-evalutation: 04/13/19 12:21 I did consult with Dr. Nicholas in regards to the patient's chief complaint of abdominal pain and vomiting that started yesterday, post colectomy. Dr. Nicholas was a surgicalist who did discharge the patient 2 days ago and is familiar with his case. He does recommend placing an NG tube, emptying the contents of the stomach and then giving oral contrast through the NG tube. Does recommend obtaining a CAT scan of the abdomen and pelvis with oral and IV contrast. Will start IV fluids and give anti-emetic and pain medication that was ordered in triage. I did discuss the recommendations with the nurse taking care of the patient. I have updated the patient and family who are in agreement with this plan and deny questions at this time. 04/13/19 12:41 KUB x-ray does show small bowel dilation with possible ileus or obstruction. 04/13/19 14:04 Per the nurse the patient did tolerate insertion of the NG tube well. Patient given another dose of nausea medication. She states that there was 100 mL's of foul smelling stomach contents that were removed prior to giving the oral contrast. 04/13/19 16:43 I did speak with Dr. Nicholas in regards to the patient's CAT scan read. He does recommend placing the NG tube on low intermittent suction. He will be down to the emergency department and see the patient for evaluation. - Vital Signs Vital signs: Temp Pulse Resp BP Pulse Ox 97.5 F 95 13 127/82 H 98 04/13/19 11:42 04/13/19 11:42 04/13/19 18:01 04/13/19 18:01 04/13/19 18:01 - Laboratory Result Diagrams: 04/13/19 12:43 04/13/19 12:43 Laboratory results interpreted by me: 04/13/19 04/13/19 12:43 12:43 WBC 13.7 H RDW 14.7 H Lymph % (Auto) 12.8 L Absolute Neuts (auto) 10.5 H Glucose 122 H Alkaline Phosphatase 153 H Lipase 633.7 H Patient has a slight leukocytosis of 13.7. Patient does have an elevated lipase of 633.7. Patient does not have an alteration in his electrolytes or kidney function at this time. Other labs unremarkable. Laboratory 04/13/19 04/13/19 12:43 12:43 WBC 13.7 H RBC 5.01 Hgb 14.2 Hct 41.8 MCV 84 MCH 28.3 MCHC 33.9 RDW 14.7 H Plt Count 325 Lymph % (Auto) 12.8 L [place] % (Auto) 7.5 Eos % (Auto) 2.0 Baso % (Auto) 0.8 Absolute Neuts (auto) 10.5 H Absolute Lymphs (auto) 1.8 Absolute Monos (auto) 1.0 Absolute Eos (auto) 0.3 Absolute Basos (auto) 0.1 Seg Neutrophils % 76.9 Sodium 137.9 Potassium 3.9 Chloride 98 Carbon Dioxide 25 Anion Gap 15 BUN 16 Creatinine 0.84 Est GFR ( Amer) > 60 Est GFR (MDRD) Non-Af > 60 Glucose 122 H Calcium 10.0 Total Bilirubin 0.7 Direct Bilirubin 0.3 Neonat Total Bilirubin Not Reportable Neonat Direct Bilirubin Not Reportable Neonat Indirect Bili Not Reportable AST 43 ALT 37 Alkaline Phosphatase 153 H Total Protein 8.0 Albumin 4.2 Lipase 633.7 H Discharge - Discharge Clinical Impression: Abdominal pain Qualifiers: Abdominal location: lower abdomen, unspecified Qualified Code(s): R10.30 - Lower abdominal pain, unspecified Nausea & vomiting Qualifiers: Vomiting type: unspecified Vomiting Intractability: unspecified Qualified Code(s): R11.2 - Nausea with vomiting, unspecified Condition: Stable Disposition: ADMITTED INPATIENT Admitting Provider: Surgicalist Unit Admitted: Surgical Floor Referrals: SHANIQUA RODRÍGUEZ MD [Primary Care Provider] - Follow up as needed
[2019-04-13 12:57] LABS: ABSOLUTE BASOPHILS # (AUTO) 0.1 10^3/uL (0.0-0.2); ABSOLUTE EOSINOPHILS # (AUTO) 0.3 10^3/uL (0.0-0.6); ABSOLUTE LYMPHOCYTES (AUTO) 1.8 10^3/uL (0.5-4.7); ABSOLUTE NEUT (AUTO) 10.5 10^3/uL (1.7-8.2); BASOPHILS % (AUTO) 0.8 % (0-2); HEMATOCRIT 41.8 % (37.9-51.0); HEMOGLOBIN 14.2 g/dL (13.5-17.0); LYMPHOCYTES % (AUTO) 12.8 % (13-45); MEAN CORPUSCULAR HEMOGLOBIN 28.3 pg (27.0-33.4); MEAN CORPUSCULAR HGB CONC 33.9 g/dL (32.0-36.0); MEAN CORPUSCULAR VOLUME 84 fl (80-97); MONOCYTES % (AUTO) 7.5 % (3-13); PLATELET COUNT 325 10^3/uL (150-450); RED BLOOD COUNT 5.01 10^6/uL (4.35-5.55); RED CELL DISTRIBUTION WIDTH 14.7 % (11.5-14.0); SEGMENTED NEUTROPHILS % (AUTO) 76.9 % (42-78); TOTAL CELLS COUNTED % (AUTO) 100 %; WHITE BLOOD COUNT 13.7 10^3/uL (4.0-10.5)
[2019-04-13 13:10] LABS: ALBUMIN 4.2 g/dL (3.5-5.0); ALKALINE PHOSPHATASE 153 U/L (38-126); ANION GAP 15 (5-19); ASPARTATE AMINO TRANSFERASE 43 U/L (17-59); BILIRUBIN,DIRECT 0.3 mg/dL (0.0-0.4); BILIRUBIN,TOTAL 0.7 mg/dL (0.2-1.3); BLOOD UREA NITROGEN 16 mg/dL (7-20); CARBON DIOXIDE 25 mmol/L (22-30); CHLORIDE 98 mmol/L (98-107); GLUCOSE 122 mg/dL (75-110); POTASSIUM 3.9 mmol/L (3.6-5.0)
--- NOTE | 2019-04-13 16:28 | RADIOLOGY REPORT (SQ) ---
EXAM DESCRIPTION: CT ABD/PELVIS WITH IV ORAL COMPLETED DATE/TIME: 04/13/2019 4:00 pm REASON FOR STUDY: Recent colectomy on 04/05, abd pain, vomiting COMPARISON: 04/05/2019, 03/28/2019, 03/10/2019 TECHNIQUE: CT scan of the abdomen and pelvis performed using helical scanning technique with dynamic intravenous contrast injection. No oral contrast. Images reviewed with lung, soft tissue, and bone windows. Reconstructed coronal and sagittal MPR images reviewed. Delayed images for evaluation of the urinary system also acquired. All images stored on PACS. All CT scanners at this facility use dose modulation, iterative reconstruction, and/or weight based d osing when appropriate to reduce radiation dose to as low as reasonably achievable (ALARA). [facility]: Dose Right [facility]: CareDose [facility]: Dose Right [facility]: Teradose 4D [facility]: MZL [employer] CONTRAST TYPE AND DOSE: 85 mL Omnipaque 350- low osmolar. RENAL FUNCTION: BUN 16; creatinine 0.84 RADIATION DOSE: CT Rad equipment meets quality standard of care and radiation dose reduction techniq ues were employed. CTDIvol: 5.6 - 7.5 mGy. DLP: 695 mGy-cm.. LIMITATIONS: None. FINDINGS: LOWER CHEST: No significant findings. No nodules or infiltrates. LIVER: Normal size. No masses. No dilated ducts. SPLEEN: Normal size. No focal lesions. PANCREAS: No masses. No significant calcifications. No adjacent inflammation or peripancreatic fluid collections. Pancreatic duct not dilated. GALLBLADDER: Gallstones. No inflammatory changes to suggest cholecystitis. ADRENAL GLANDS: No significant masses or asymmetry. RIGHT KIDNEY AND URETER: No solid masses. No significant calcifications. No hydronephrosis or hyd roureter. LEFT KIDNEY AND URETER: No solid masses. Punctate nonobstructing nephroliths are again seen. No h ydronephrosis or hydroureter. AORTA AND VESSELS: Calcified and noncalcified atherosclerotic plaque without aneurysm or dissection. RETROPERITONEUM: No retroperitoneal adenopathy, hemorrhage or masses. BOWEL AND PERITONEAL CAVITY: The patient has gone interval partial colectomy with a right lower quadr ant colostomy. Multiple loops of air and fluid distended ileum taper to normal in the region of the surgical bed. An enteric tube terminates within the gastric body. A small hiatal hernia is present. APPENDIX: Stable in appearance, again noting appendicolith. No evidence of focal inflammation. PELVIS: A small amount of free fluid is seen in the region of the sigmoid colon. No mural hyperenhan cement to suggest abscess. ABDOMINAL WALL: Midline surgical changes and right lower quadrant colostomy. Fluid is seen within th e left inguinal canal. BONES: No significant or acute findings. OTHER: No other significant finding. IMPRESSION: Status post partial colectomy with right lower quadrant colostomy. The ileum is air and fluid distended, taper to normal in the region of the surgical bed. No pelvic abscess or free air. Findings are consistent with postsurgical ileus versus developing small bowel obstruction (although no CT findings of arnulfo mechanical obstruction). Enteric tube demonstrating appropriate positioning. Other chronic and incidental findings as detailed above. TECHNICAL DOCUMENTATION: JOB ID: [id number] Quality ID # [id number]: Final reports with documentation of one or more dose reduction techniques (e.g., Au tomated exposure control, adjustment of the mA and/or kV according to patient size, use of iterative reconstruction technique) 2010 [employer]- All Rights Reserved Reading location - IP/workstation name: [email or web address]
[2019-04-13] MEDS ORDERED: BENZOCAINE 20% AEROSOL SPRAY 60 GM TP ONE (17:05)
[2019-04-13] MEDS ORDERED: BENZOCAINE 20% AEROSOL SPRAY 60 GM ONE (17:16)
--- NOTE | 2019-04-13 18:32 | PDOC H&P ---
History of Present Illness Admission Date/PCP: SHANIQUA RODRÍGUEZ MD Patient complains of: Abdominal pain History of Present Illness: ANTONINO CHUN is a 53 year old male status post sigmoid colon resection with and colostomy for complicated diverticular disease a week and a half ago. Patient initially did well and was subsequently discharged with good bowel function and minimal abdominal discomfort. However yesterday he had acute onset of crampy diffuse abdominal pain along with nausea. The symptoms has persisted with abdominal distention and he subsequently came in through the emergency department. NG tube drained bilious output. Patient continues to have crampy intermittent diffuse abdominal pain. Patient is otherwise healthy. No fever. Past Medical History Cardiac Medical History: Reports: None Pulmonary Medical History: Reports: None EENT Medical History: Reports: None Neurological Medical History: Reports: None Endocrine Medical History: Reports: None Malignancy Medical History: Reports: None GI Medical History: Reports: Gastroesophageal Reflux Disease, Hiatal Hernia Musculoskeltal Medical History: Reports: None Skin Medical History: Reports: None Psychiatric Medical History: Reports: None Denies: Depression Traumatic Medical History: Reports: None Infectious Medical History: Reports: None Past Surgical History Past Surgical History: Reports: Orthopedic Surgery - right shoulder x4. 2 of these due to infection, Other - Sigmoid colon resection with end colostomy Comment Only: Cholecystectomy - Gallstones Social History Lives with: Family, Spouse/Significant other Smoking Status: Current Every Day Smoker Electronic Cigarette use?: No Frequency of Alcohol Use: Occasional Hx Recreational Drug Use: Yes Drugs: Marijuana Hx Prescription Drug Abuse: No Family History Family History: None Parental Family History Reviewed: Yes Children Family History Reviewed: Yes Sibling(s) Family History Reviewed.: Yes - Diabetes Medication/Allergy Home Medications: Esomeprazole Magnesium [Nexium] 22.5 mg PO BID 04/05/19 Methocarbamol [Robaxin 500 mg Tablet] 500 mg PO Q8HP PRN 04/05/19 Oxycodone HCl/Acetaminophen [Percocet 5-325 mg Tablet] 1 tab PO ASDIR PRN #15 tablet 04/11/19 Allergies/Adverse Reactions: No Known Allergies Allergy (Verified 04/13/19 11:43) Review of Systems All systems: reviewed and no additional remarkable complaints except as stated Gastrointestinal: PRESENT: as per HPI Physical Exam Vital Signs: Temp Pulse Resp BP Pulse Ox 97.5 F 95 13 127/82 H 98 04/13/19 11:42 04/13/19 11:42 04/13/19 18:01 04/13/19 18:01 04/13/19 18:01 Intake & Output 04/12/19 04/13/19 04/14/19 06:59 06:59 06:59 Intake Total 1000 Output Total 120 Balance 880 Weight 68.1 kg General appearance: PRESENT: no acute distress, cooperative Eye exam: PRESENT: conjunctiva pink Neck exam: PRESENT: other - Supple with no tenderness and no masses Respiratory exam: PRESENT: clear to auscultation rosa maria Cardiovascular exam: PRESENT: RRR GI/Abdominal exam: PRESENT: other - Soft but moderately distended. Wound clean dry and intact with saurabh with no erythema. Ostomy is pink with a little bit of air in the bag. Abdomen is nontender with no peritoneal signs Extremities exam: PRESENT: other - No swelling and no tenderness Neurological exam: PRESENT: alert, awake Psychiatric exam: PRESENT: appropriate affect Skin exam: PRESENT: warm Results Laboratory Results: 04/13/19 12:43 04/13/19 12:43 04/13/19 04/13/19 12:43 12:43 WBC 13.7 H RBC 5.01 Hgb 14.2 Hct 41.8 MCV 84 MCH 28.3 MCHC 33.9 RDW 14.7 H Plt Count 325 Seg Neutrophils % 76.9 Sodium 137.9 Potassium 3.9 Chloride 98 Carbon Dioxide 25 Anion Gap 15 BUN 16 Creatinine 0.84 Est GFR ( Amer) > 60 Glucose 122 H Calcium 10.0 Total Bilirubin 0.7 AST 43 Alkaline Phosphatase 153 H Total Protein 8.0 Albumin 4.2 Lipase 633.7 H Impressions: Abdomen/Pelvis CT 04/13/19 00:00 IMPRESSION: Status post partial colectomy with right lower quadrant colostomy. The ileum is air and fluid distended, taper to normal in the region of the surgical bed. No pelvic abscess or free air. Findings are consistent with postsurgical ileus versus developing small bowel obstruction (although no CT findings of arnulfo mechanical obstruction). Enteric tube demonstrating appropriate positioning. Other chronic and incidental findings as detailed above. KUB X-Ray 04/13/19 11:45 IMPRESSION: DIFFUSE SMALL BOWEL DILATION. ILEUS VERSUS OBSTRUCTION. Assessment & Plan - Diagnosis (1) Small bowel obstruction due to postoperative adhesions Is this a current diagnosis for this admission?: Yes Plan: I have gone over his CT scan with radiologist. The findings are consistent with a mechanical small bowel obstruction with distended proximal bowel with decompressed distal bowel with a possible transition point in the pelvis near his staple line of his rectal stump. However there is no radiographic evidence of intestinal compromise nor closed-loop obstruction. I have had a long discussion with the patient and his family about conservative versus operative intervention. I have had a long discussion concerning the risk and benefits of both including risk of intestinal compromise in the observation period with conservative management. Also so risk of intestinal injury, bleeding, inf ection, heart lung complications, wound healing issues including increased risk for hernia formation with operative intervention. If I were to do an operation I have recommended an initial laparoscopic approach with possibility of conversion to an open procedure. The patient would prefer initial conservative management and I will comply with NG tube decompression and IV fluids, and IV pain medications. However if patient does not turnaround by tomorrow, or he has any concerning signs of intestinal compromise, will plan surgical intervention.
[2019-04-13] MEDS ORDERED: PHARMACY COMMUNICATION ORDER MC NR (18:45)
[2019-04-13] MEDS: MORPHINE SULFATE 10 MG/ML INJ IV PRN ×2 (19:46→23:33)
[2019-04-13] MEDS ORDERED: ONDANSETRON HCL INJ/PF 4 MG/2 ML SDV ONE (20:44)
[2019-04-13] MEDS: NORMAL SALINE 1000 ML 1,000 ML IV PRN (20:52)
[2019-04-13] MEDS ORDERED: CEFAZOLIN 1 GM/D5W RTU 1 GM/50 ML RTUPB IV ONE ×2 (23:05)
[2019-04-13] MEDS: CEFAZOLIN 1 GM/D5W RTU 1 GM/50 ML RTUPB IV SCH (23:34)
--- NOTE | 2019-04-13 23:45 | PDOC PROGRESS REPORT ---
Subjective Progress Note for:: 04/13/19 Subjective:: Had pain earlier easing off after morphine. Reason For Visit: SMALL BOWEL OBSTRUCTION Physical Exam Vital Signs: Temp Pulse Resp BP Pulse Ox 98.5 F 84 18 153/65 H 97 04/13/19 20:58 04/13/19 20:58 04/13/19 20:58 04/13/19 20:58 04/13/19 20:58 Intake & Output 04/12/19 04/13/19 04/14/19 06:59 06:59 06:59 Intake Total 1000 Output Total 970 Balance 30 Weight 67.3 kg General appearance: PRESENT: no acute distress, cooperative Respiratory exam: PRESENT: clear to auscultation rosa maria Cardiovascular exam: PRESENT: RRR GI/Abdominal exam: PRESENT: other - Soft, moderately distended but seems less than earlier, nontender to palpation. There is a little bit of air in the colostomy bag. Results Laboratory Results: 04/13/19 12:43 04/13/19 12:43 04/13/19 04/13/19 12:43 12:43 WBC 13.7 H RBC 5.01 Hgb 14.2 Hct 41.8 MCV 84 MCH 28.3 MCHC 33.9 RDW 14.7 H Plt Count 325 Seg Neutrophils % 76.9 Sodium 137.9 Potassium 3.9 Chloride 98 Carbon Dioxide 25 Anion Gap 15 BUN 16 Creatinine 0.84 Est GFR ( Amer) > 60 Glucose 122 H Calcium 10.0 Total Bilirubin 0.7 AST 43 Alkaline Phosphatase 153 H Total Protein 8.0 Albumin 4.2 Lipase 633.7 H Impressions: Abdomen/Pelvis CT 04/13/19 00:00 IMPRESSION: Status post partial colectomy with right lower quadrant colostomy. The ileum is air and fluid distended, taper to normal in the region of the surgical bed. No pelvic abscess or free air. Findings are consistent with postsurgical ileus versus developing small bowel obstruction (although no CT findings of arnulfo mechanical obstruction). Enteric tube demonstrating appropriate positioning. Other chronic and incidental findings as detailed above. KUB X-Ray 04/13/19 11:45 IMPRESSION: DIFFUSE SMALL BOWEL DILATION. ILEUS VERSUS OBSTRUCTION. Assessment & Plan - Diagnosis (1) Small bowel obstruction due to postoperative adhesions Is this a current diagnosis for this admission?: Yes Plan: Will repeat abdominal x-rays in the morning. We will continue conservative measures with NG tube decompression. I have asked the patient to ambulate some tonight. - Time Time Spent with patient: Less than 15 minutes
[2019-04-14] MEDS: MORPHINE SULFATE 10 MG/ML INJ IV PRN ×5 (02:38→21:13)
[2019-04-14] MEDS: ONDANSETRON HCL INJ/PF 4 MG/2 ML SDV IV PRN ×3 (02:38→18:12)
[2019-04-14] MEDS: CEFAZOLIN 1 GM/D5W RTU 1 GM/50 ML RTUPB IV SCH (05:34)
[2019-04-14 06:35] LABS: HEMATOCRIT 36.3 % (37.9-51.0); HEMOGLOBIN 12.7 g/dL (13.5-17.0); MEAN CORPUSCULAR HGB CONC 34.9 g/dL (32.0-36.0); MEAN CORPUSCULAR VOLUME 83 fl (80-97); PLATELET COUNT 278 10^3/uL (150-450); RED BLOOD COUNT 4.36 10^6/uL (4.35-5.55); RED CELL DISTRIBUTION WIDTH 15.2 % (11.5-14.0); WHITE BLOOD COUNT 9.9 10^3/uL (4.0-10.5)
[2019-04-14 06:51] LABS: ANION GAP 14 (5-19); BLOOD UREA NITROGEN 14 mg/dL (7-20); CALCIUM 9.2 mg/dL (8.4-10.2); CARBON DIOXIDE 23 mmol/L (22-30); CHLORIDE 102 mmol/L (98-107); GLUCOSE 84 mg/dL (75-110); POTASSIUM 3.9 mmol/L (3.6-5.0)
--- NOTE | 2019-04-14 08:23 | RADIOLOGY REPORT (SQ) ---
EXAM DESCRIPTION: ABDOMEN 2 VIEWS COMPLETED DATE/TIME: 04/14/2019 8:01 am REASON FOR STUDY: f/u sbo COMPARISON: 04/13/2019. NUMBER OF VIEWS: Two views. TECHNIQUE: Supine and erect/decubitus radiographic images of the abdomen acquired. LIMITATIONS: None. FINDINGS: FREE AIR: None. No abnormal gas collections. LUNG BASES: Clear. BOWEL GAS PATTERN: Dilated small bowel loops with air-fluid levels. CALCIFICATIONS: No suspicious calcifications. SOFT TISSUES: No gross mass or suggestion of organomegaly. HARDWARE: Nasogastric tube curled in the stomach with the tip at the level of the gastroesophageal ju nction. May need to be repositioned. Midline skin saurabh. Left lower quadrant ostomy. BONES: No acute fracture. No worrisome bone lesions. OTHER: No other significant finding. IMPRESSION: NASOGASTRIC TUBE DESCRIBED. CONTINUED SMALL BOWEL DILATION. TECHNICAL DOCUMENTATION: JOB ID: [id number] [employer]- All Rights Reserved Reading location - IP/workstation name: [email or web address]
--- NOTE | 2019-04-14 10:09 | PDOC PROGRESS REPORT ---
Subjective Progress Note for:: 04/14/19 Subjective:: Still having abdominal pain. Reason For Visit: SMALL BOWEL OBSTRUCTION Physical Exam Vital Signs: Temp Pulse Resp BP Pulse Ox 97.4 F 80 16 116/75 99 04/14/19 08:07 04/14/19 08:07 04/14/19 08:07 04/14/19 08:07 04/14/19 08:07 Intake & Output 04/13/19 04/14/19 04/15/19 06:59 06:59 06:59 Intake Total 2100 Output Total 1770 Balance 330 Weight 67.3 kg General appearance: PRESENT: no acute distress, cooperative Respiratory exam: PRESENT: clear to auscultation rosa maria Cardiovascular exam: PRESENT: RRR GI/Abdominal exam: PRESENT: other - Soft but moderately distended with mild tenderness in the lower abdomen but no peritoneal signs. Extremities exam: PRESENT: other - No swelling and no tenderness Results Laboratory Results: 04/14/19 05:52 04/14/19 05:52 04/13/19 04/13/19 04/14/19 12:43 12:43 05:52 WBC 13.7 H 9.9 RBC 5.01 4.36 Hgb 14.2 12.7 L Hct 41.8 36.3 L MCV 84 83 MCH 28.3 29.0 MCHC 33.9 34.9 RDW 14.7 H 15.2 H Plt Count 325 278 Seg Neutrophils % 76.9 Sodium 137.9 Potassium 3.9 Chloride 98 Carbon Dioxide 25 Anion Gap 15 BUN 16 Creatinine 0.84 Est GFR ( Amer) > 60 Glucose 122 H Calcium 10.0 Total Bilirubin 0.7 AST 43 Alkaline Phosphatase 153 H Total Protein 8.0 Albumin 4.2 Lipase 633.7 H 04/14/19 05:52 WBC RBC Hgb Hct MCV MCH MCHC RDW Plt Count Seg Neutrophils % Sodium 139.2 Potassium 3.9 Chloride 102 Carbon Dioxide 23 Anion Gap 14 BUN 14 Creatinine 0.70 Est GFR ( Amer) > 60 Glucose 84 Calcium 9.2 Total Bilirubin AST Alkaline Phosphatase Total Protein Albumin Lipase Impressions: Abdomen/Pelvis CT 04/13/19 00:00 IMPRESSION: Status post partial colectomy with right lower quadrant colostomy. The ileum is air and fluid distended, taper to normal in the region of the surgical bed. No pelvic abscess or free air. Findings are consistent with postsurgical ileus versus developing small bowel obstruction (although no CT findings of arnulfo mechanical obstruction). Enteric tube demonstrating appropriate positioning. Other chronic and incidental findings as detailed above. KUB X-Ray 04/13/19 11:45 IMPRESSION: DIFFUSE SMALL BOWEL DILATION. ILEUS VERSUS OBSTRUCTION. Abdomen X-Ray 04/14/19 07:00 IMPRESSION: NASOGASTRIC TUBE DESCRIBED. CONTINUED SMALL BOWEL DILATION. Assessment & Plan - Diagnosis (1) Small bowel obstruction due to postoperative adhesions Is this a current diagnosis for this admission?: Yes Plan: Still with evidence of small bowel obstruction. Not responding to conservative measures. Will proceed with exploratory laparoscopy with lysis of adhesions, possible bowel resection, possible conversion to laparotomy. I have had a long discussion with the patient yesterday as well as today about the risk and benefits of the surgery including risk of recurrence, poor wound healing including hernia and fascial dehiscence, bowel injury, bleeding, heart lung risks. Patient understands and agrees to proceed. - Time Time Spent with patient: Less than 15 minutes
[2019-04-14] MEDS ORDERED: BUPIVACAINE HCL 0.25 % INJ/PF (2.5 MG/1 ML) 30 ML VIAL ONE (10:19)
[2019-04-14] MEDS ORDERED: HYDROMORPHONE HCL INJ/PF 2 MG/ML AMPULE ONE (10:45)
[2019-04-14] MEDS ORDERED: FENTANYL CITRATE INJ/PF 100 MCG/2 ML AMPUL ONE (10:45)
[2019-04-14] MEDS ORDERED: PROPOFOL INJ 200 MG/20 ML VIAL IV ONE (10:46)
[2019-04-14] MEDS ORDERED: MIDAZOLAM 2 MG/2 ML INJ ONE (10:46)
[2019-04-14] MEDS ORDERED: EPHEDRINE SULFATE INJ 50 MG/1 ML AMPULE ONE (10:46)
[2019-04-14] MEDS ORDERED: CEFAZOLIN INJ 1 GM VIAL ONE (11:04)
[2019-04-14] MEDS: FAMOTIDINE INJ/PF 20 MG/2 ML SDV IV SCH ×2 (11:09→21:13)
[2019-04-14] MEDS: ENOXAPARIN SODIUM INJ 40 MG/0.4 ML DISP.SYRIN SUBCUT SCH (11:09)
[2019-04-14] MEDS ORDERED: MEPERIDINE HCL/PF INJ 25 MG/1 ML DISP.SYRIN IV PRN (11:36)
[2019-04-14] MEDS ORDERED: DIPHENHYDRAMINE HCL 50 MG/ML VIAL IV PRN (11:36)
[2019-04-14] MEDS ORDERED: PROMETHAZINE HCL INJ 25 MG/1 ML VIAL IV PRN ×2 (11:36)
[2019-04-14] MEDS ORDERED: OXYCODONE-ACETAMINOPHEN 5-325 MG TABLET PO PRN ×2 (11:36)
[2019-04-14] MEDS ORDERED: ONDANSETRON HCL INJ/PF 4 MG/2 ML SDV IV PRN (11:36)
[2019-04-14] MEDS ORDERED: FENTANYL CITRATE INJ/PF 100 MCG/2 ML AMPUL IV PRN ×3 (11:36)
[2019-04-14] MEDS ORDERED: CEFAZOLIN SODIUM 1 GM in DEXTROSE 5%-WATER 50 ML IV SCH (12:00)
[2019-04-14] MEDS ORDERED: ROCURONIUM BROMIDE INJ 50 MG/5 ML VIAL IV ONE (12:44)
[2019-04-14] MEDS ORDERED: ONDANSETRON HCL INJ/PF 4 MG/2 ML SDV ONE (12:44)
[2019-04-14] MEDS ORDERED: KETOROLAC TROMETHAMINE 60 MG/2 ML SDV ONE (12:44)
[2019-04-14] MEDS ORDERED: NEOSTIGMINE METHYLSULFATE 10 MG/10 ML VIAL ONE (12:44)
[2019-04-14] MEDS ORDERED: LIDOCAINE 2% INJ-PF (20 MG/ML) 2 ML AMPUL ONE (12:44)
[2019-04-14] MEDS ORDERED: GLYCOPYRROLATE 1 MG/5 ML VIAL ONE (12:44)
[2019-04-14] MEDS ORDERED: DEXAMETHASONE SOD PHOSPHATE INJ 4 MG/1 ML VIAL ONE (12:44)
[2019-04-14] MEDS ORDERED: METOCLOPRAMIDE HCL INJ/PF 10 MG/2 ML SDV ONE (12:44)
--- NOTE | 2019-04-14 12:49 | Operative Report ---
Operative Report DATE OF SURGERY: 04/14/19 PREOPERATIVE DIAGNOSIS: Small bowel obstruction POSTOPERATIVE DIAGNOSIS: Small bowel obstruction. Colostomy stoma dehiscence OPERATION: Laparoscopic lysis of adhesions. Colostomy stoma revision. SURGEON: JLUIS ADAMS ANESTHESIA: GA TISSUE REMOVED OR ALTERED: None COMPLICATIONS: None ESTIMATED BLOOD LOSS: Minimal INTRAOPERATIVE FINDINGS: Small bowel adhered to rectal stump with the resultant obstruction with clear transition point. Partially dehisced stoma of end colo stomy. PROCEDURE: Informed consent was obtained. Patient was brought to the operating room placed on the operating table in the supine position. After satisfactory induction of general anesthesia, patient ostomy bag was removed and the ostomy was covered with Tegaderm. The abdomen was prepped and draped in usual sterile fashion. A mid upper midline incision was made dissection carried down through the fascia and the peritoneal cavity was entered without difficulty. Swain trocar was inserted and pneumoperitoneum produced with good patient toleration. There were midline omental adhesions. A total of three 5 mm trochars were placed in the right lateral abdomen. The omental adhesions were taken down bluntly taking great care to avoid injury to the underlying bowel. The omentum was peeled off of the underlying bowel revealing dilated proximal bowel with decompressed distal bowel with a clear transition point occurring in the pelvis. The bowel was gently teased off of his adhesions. There was a tight adhesion to the rectal stump which had to be sharply incised to allow the bowel to be free. There was a clear indentation in the bowel at this point marking the transition point. The bowel was closely examined and there was no evidence of injury. The bowel was run from the dilated portion to couple of feet of the distal decompressed portion. I felt confident that I found the culprit since it corresponded perfectly with the CT scan findings. There were some inflammatory changes at the rectal stump thus accounting for the density of the adhesion at this region. Seprafilm was cut in small pieces and introduced through the Swain trocar site and placed at this regions of inflammation to decrease the risk of adhesions. The omentum was draped over the small bowel and the omentum was redundant enough to allow coverage of the rectal stump. Hemostasis appeared excellent. All trochars were removed under the direct vision of the laparoscope to ensure hemostasis. The Swain trocar site fascial defect was closed with interrupted Vicryl sutures. All skin incisions were closed with subcuticular interrupted Monocryl sutures. Sterile dressings were applied. Inspection of the end colostomy stoma demonstrated that about two thirds of the stoma to dermis interface had dehisced (this was noted at the very beginning of the case when the ostomy bag had been removed to cover it with Tegaderm). This region was debrided and irrigated out and the stoma was revised with a interrupted Vicryl sutures. Ostomy bag was then applied. Patient tolerated procedure well with no apparent complications and was taken to the recovery area in stable condition.
[2019-04-14] MEDS: NORMAL SALINE 1000 ML 1,000 ML IV PRN (21:13)
[2019-04-15] MEDS: MORPHINE SULFATE 10 MG/ML INJ IV PRN ×5 (00:13→21:16)
[2019-04-15] MEDS: ONDANSETRON HCL INJ/PF 4 MG/2 ML SDV IV PRN ×5 (00:13→21:17)
[2019-04-15] MEDS: NORMAL SALINE 1000 ML 1,000 ML IV PRN ×3 (04:12→22:42)
[2019-04-15 05:05] LABS: ABSOLUTE LYMPHOCYTES (AUTO) 2.1 10^3/uL (0.5-4.7); ABSOLUTE MONOCYTES (AUTO) 0.9 10^3/uL (0.1-1.4); ABSOLUTE NEUT (AUTO) 8.4 10^3/uL (1.7-8.2); BASOPHILS % (AUTO) 0.4 % (0-2); EOSINOPHILS % (AUTO) 0.3 % (0-6); HEMATOCRIT 33.9 % (37.9-51.0); HEMOGLOBIN 11.5 g/dL (13.5-17.0); LYMPHOCYTES % (AUTO) 18.3 % (13-45); MEAN CORPUSCULAR HEMOGLOBIN 28.1 pg (27.0-33.4); MEAN CORPUSCULAR VOLUME 83 fl (80-97); MONOCYTES % (AUTO) 8.1 % (3-13); PLATELET COUNT 305 10^3/uL (150-450); RED CELL DISTRIBUTION WIDTH 14.5 % (11.5-14.0); SEGMENTED NEUTROPHILS % (AUTO) 72.9 % (42-78); TOTAL CELLS COUNTED % (AUTO) 100 %; WHITE BLOOD COUNT 11.5 10^3/uL (4.0-10.5)
[2019-04-15 05:26] LABS: BLOOD UREA NITROGEN 11 mg/dL (7-20); CALCIUM 8.9 mg/dL (8.4-10.2); CHLORIDE 101 mmol/L (98-107); GLUCOSE 76 mg/dL (75-110)
[2019-04-15 05:29] LABS: ANION GAP 13 (5-19); CARBON DIOXIDE 21 mmol/L (22-30)
[2019-04-15] MEDS ORDERED: LORAZEPAM INJ 2 MG/1 ML VIAL IV PRN (07:50)
[2019-04-15] MEDS ORDERED: MAG HYDROX/AL HYDROX/SIMETH SUSP 30 ML UDCUP PO PRN (07:50)
--- NOTE | 2019-04-15 07:50 | PDOC PROGRESS REPORT ---
Subjective Progress Note for:: 04/15/19 Subjective:: feels ok, c/o ng tube Reason For Visit: SMALL BOWEL OBSTRUCTION Physical Exam Vital Signs: Temp Pulse Resp BP Pulse Ox 98.3 F 84 16 120/68 100 04/14/19 23:02 04/14/19 23:02 04/14/19 23:02 04/14/19 23:02 04/14/19 23:02 Intake & Output 04/14/19 04/15/19 04/16/19 06:59 06:59 06:59 Intake Total 2100 3600 Output Total 1770 2095 Balance 330 1505 Weight 67.3 kg 67.7 kg General appearance: PRESENT: no acute distress Head exam: PRESENT: normocephalic Eye exam: PRESENT: EOMI Ear exam: PRESENT: normal external ear exam Mouth exam: PRESENT: moist Neck exam: PRESENT: full ROM Respiratory exam: PRESENT: clear to auscultation rosa maria Cardiovascular exam: PRESENT: RRR Pulses: PRESENT: normal radial pulses, normal femoral pulses GI/Abdominal exam: PRESENT: soft Rectal exam: PRESENT: deferred Extremities exam: PRESENT: full ROM Musculoskeletal exam: PRESENT: full ROM Neurological exam: PRESENT: alert, awake, oriented to person, oriented to place Skin exam: PRESENT: dry Results Laboratory Results: 04/15/19 04:15 04/15/19 04:15 04/15/19 04/15/19 04:15 04:15 WBC 11.5 H RBC 4.10 L Hgb 11.5 L Hct 33.9 L MCV 83 MCH 28.1 MCHC 34.0 RDW 14.5 H Plt Count 305 Seg Neutrophils % 72.9 Sodium 135.1 L Potassium 4.0 Chloride 101 Carbon Dioxide 21 L Anion Gap 13 BUN 11 Creatinine 0.65 Est GFR ( Amer) > 60 Glucose 76 Calcium 8.9 Impressions: Abdomen/Pelvis CT 04/13/19 00:00 IMPRESSION: Status post partial colectomy with right lower quadrant colostomy. The ileum is air and fluid distended, taper to normal in the region of the surgical bed. No pelvic abscess or free air. Findings are consistent with postsurgical ileus versus developing small bowel obstruction (although no CT findings of arnulfo mechanical obstruction). Enteric tube demonstrating appropriate positioning. Other chronic and incidental findings as detailed above. KUB X-Ray 04/13/19 11:45 IMPRESSION: DIFFUSE SMALL BOWEL DILATION. ILEUS VERSUS OBSTRUCTION. Abdomen X-Ray 04/14/19 07:00 IMPRESSION: NASOGASTRIC TUBE DESCRIBED. CONTINUED SMALL BOWEL DILATION. Assessment & Plan - Diagnosis (1) Small bowel obstruction due to postoperative adhesions Is this a current diagnosis for this admission?: Yes - Time Time Spent with patient: 25-34 minutes - Plan Summary Plan Summary: pts stoma productive of air and some stool will dc ng tube cont npo till full function of stoma add maalox for heartburn
[2019-04-15] MEDS: ENOXAPARIN SODIUM INJ 40 MG/0.4 ML DISP.SYRIN SUBCUT SCH (10:00)
[2019-04-15] MEDS: FAMOTIDINE INJ/PF 20 MG/2 ML SDV IV SCH ×2 (10:53→21:17)
[2019-04-16] MEDS: MORPHINE SULFATE 10 MG/ML INJ IV PRN ×5 (02:10→23:52)
[2019-04-16] MEDS: ONDANSETRON HCL INJ/PF 4 MG/2 ML SDV IV PRN ×5 (02:12→23:52)
[2019-04-16] MEDS: NORMAL SALINE 1000 ML 1,000 ML IV PRN ×2 (05:24→14:26)
--- NOTE | 2019-04-16 07:41 | PDOC PROGRESS REPORT ---
Subjective Progress Note for:: 04/16/19 Subjective:: wants to eat. air in colostomy bag Reason For Visit: SMALL BOWEL OBSTRUCTION Physical Exam Vital Signs: Temp Pulse Resp BP Pulse Ox 97.8 F 72 17 116/74 99 04/16/19 00:00 04/16/19 00:00 04/16/19 00:00 04/16/19 00:00 04/16/19 00:00 Intake & Output 04/15/19 04/16/19 04/17/19 06:59 06:59 06:59 Intake Total 3600 3180 Output Total 2095 2100 Balance 1505 1080 Weight 67.7 kg 67.5 kg General appearance: PRESENT: no acute distress Head exam: PRESENT: normocephalic Eye exam: PRESENT: EOMI Ear exam: PRESENT: normal external ear exam Mouth exam: PRESENT: moist Teeth exam: PRESENT: edentulous Neck exam: PRESENT: full ROM Respiratory exam: PRESENT: clear to auscultation rosa maria Cardiovascular exam: PRESENT: RRR Pulses: PRESENT: normal radial pulses, normal femoral pulses GI/Abdominal exam: PRESENT: normal bowel sounds, soft Rectal exam: PRESENT: deferred Extremities exam: PRESENT: full ROM Musculoskeletal exam: PRESENT: full ROM Neurological exam: PRESENT: alert, awake, oriented to person, oriented to place Skin exam: PRESENT: dry Results Laboratory Results: 04/15/19 04:15 04/15/19 04:15 Impressions: Abdomen/Pelvis CT 04/13/19 00:00 IMPRESSION: Status post partial colectomy with right lower quadrant colostomy. The ileum is air and fluid distended, taper to normal in the region of the surgical bed. No pelvic abscess or free air. Findings are consistent with postsurgical ileus versus developing small bowel obstruction (although no CT findings of arnulfo mechanical obstruction). Enteric tube demonstrating appropriate positioning. Other chronic and incidental findings as detailed above. KUB X-Ray 04/13/19 11:45 IMPRESSION: DIFFUSE SMALL BOWEL DILATION. ILEUS VERSUS OBSTRUCTION. Abdomen X-Ray 04/14/19 07:00 IMPRESSION: NASOGASTRIC TUBE DESCRIBED. CONTINUED SMALL BOWEL DILATION. Assessment & Plan - Diagnosis (1) Small bowel obstruction due to postoperative adhesions Is this a current diagnosis for this admission?: Yes - Time Time Spent with patient: 25-34 minutes - Plan Summary Plan Summary: doing ok this am upset that he cannot eat as yet has air in stoma bag hungry plan will start clears decrease iv rate increase activity awaiting return of bowel function.
--- NOTE | 2019-04-16 09:22 | PDOC PROGRESS REPORT ---
Subjective Progress Note for:: 04/16/19 Subjective:: Feels well. Hungry. Reason For Visit: SMALL BOWEL OBSTRUCTION Physical Exam Vital Signs: Temp Pulse Resp BP Pulse Ox 97.3 F 62 16 93/57 L 96 04/16/19 08:00 04/16/19 08:00 04/16/19 08:00 04/16/19 08:00 04/16/19 08:00 Intake & Output 04/15/19 04/16/19 04/17/19 06:59 06:59 06:59 Intake Total 3600 3180 Output Total 2095 2100 Balance 1505 1080 Weight 67.7 kg 67.5 kg General appearance: PRESENT: no acute distress, cooperative Respiratory exam: PRESENT: clear to auscultation rosa maria Cardiovascular exam: PRESENT: RRR GI/Abdominal exam: PRESENT: other - Soft, nondistended, minimal tenderness. Wounds are all clean dry and intact. Ostomy bag has some stool and air. Extremities exam: PRESENT: other - No swelling and no tenderness. Results Laboratory Results: 04/15/19 04:15 04/15/19 04:15 Impressions: Abdomen/Pelvis CT 04/13/19 00:00 IMPRESSION: Status post partial colectomy with right lower quadrant colostomy. The ileum is air and fluid distended, taper to normal in the region of the surgical bed. No pelvic abscess or free air. Findings are consistent with postsurgical ileus versus developing small bowel obstruction (although no CT findings of arnulfo mechanical obstruction). Enteric tube demonstrating appropriate positioning. Other chronic and incidental findings as detailed above. KUB X-Ray 04/13/19 11:45 IMPRESSION: DIFFUSE SMALL BOWEL DILATION. ILEUS VERSUS OBSTRUCTION. Abdomen X-Ray 04/14/19 07:00 IMPRESSION: NASOGASTRIC TUBE DESCRIBED. CONTINUED SMALL BOWEL DILATION. Assessment & Plan - Diagnosis (1) Small bowel obstruction due to postoperative adhesions Is this a current diagnosis for this admission?: Yes Plan: Doing well after laparoscopic lysis of adhesions. Patient has stool and air in the colostomy bag and abdominal exam looks very good. Will start a diet today. - Time Time Spent with patient: Less than 15 minutes
[2019-04-16] MEDS: ENOXAPARIN SODIUM INJ 40 MG/0.4 ML DISP.SYRIN SUBCUT SCH (11:01)
[2019-04-16] MEDS: FAMOTIDINE INJ/PF 20 MG/2 ML SDV IV SCH ×2 (11:01→21:42)
[2019-04-17] MEDS: NORMAL SALINE 1000 ML 1,000 ML IV PRN (03:59)
--- NOTE | 2019-04-17 07:28 | PDOC DISCHARGE SUMMARY ---
General - Admit/Disc Date/PCP Admission Date/Primary Care Provider: 04/13/19 19:05 SHANIQUA RODRÍGUEZ MD Discharge Date: 04/17/19 - Discharge Diagnosis Final Diagnosis: small bowel obstruction - Assessment Summary: Patient was admitted on 04/13/2019 for complaints of increasing abdominal distention and abdominal pain nausea and vomiting. He has been recently discharged after undergoing a exploratory laparotomy with sigmoid colectomy and Bhatt's procedure. Return to the emergency room with the above complaint CT scan was obtained which showed a small bowel obstruction. He was taken to the operating room by Dr. Amin where he underwent laparoscopic lysis of adhesions. Postoperatively had a routine benign postop course the NG tube was removed the following day and was started on clear liquid diet he started having return of bowel function with production from the colostomy. His diet was advanced on postoperative day 2 to regular diet. By postoperative day 3 he was tolerating regular diet he was having production of stool from the ostomy and was ready for discharge home. He will follow-up in a week after discharge in the surgery clinic. - Additional Information Resuscitation Status: Full Code Discharge Diet: As Tolerated Discharge Activity: No Lifting Over 10 Pounds - Patient needs a follow-up in surgical clinic next week. Referrals: SHANIQUA RODRÍGUEZ MD [Primary Care Provider] - Follow up as needed Home Medications: Esomeprazole Magnesium [Nexium] 20 mg PO BID 04/14/19 Ibuprofen [Motrin 800 mg Tablet] 800 mg PO DAILYP PRN 04/14/19 Oxycodone HCl/Acetaminophen [Percocet 5-325 mg Tablet] 1 tab PO Q4HP PRN 04/14/19 History of Present Illiness History of Present Illness: ANTONINO CHUN is a 53 year old male Physical Exam Vital Signs: Temp Pulse Resp BP Pulse Ox 97.3 F 74 18 134/82 H 100 04/16/19 16:00 04/16/19 16:00 04/16/19 16:00 04/16/19 16:00 04/16/19 16:00 Intake & Output 04/16/19 04/17/19 04/18/19 06:59 06:59 06:59 Intake Total 3180 1595 Output Total 2100 5675 Balance 1080 -4080 Weight 67.5 kg 67.2 kg Results Laboratory Results: WBC 11.5 10^3/uL (4.0-10.5) H 04/15/19 04:15 RBC 4.10 10^6/uL (4.35-5.55) L 04/15/19 04:15 Hgb 11.5 g/dL (13.5-17.0) L 04/15/19 04:15 Hct 33.9 % (37.9-51.0) L 04/15/19 04:15 MCV 83 fl (80-97) 04/15/19 04:15 MCH 28.1 pg (27.0-33.4) 04/15/19 04:15 MCHC 34.0 g/dL (32.0-36.0) 04/15/19 04:15 RDW 14.5 % (11.5-14.0) H 04/15/19 04:15 Plt Count 305 10^3/uL (150-450) 04/15/19 04:15 Lymph % (Auto) 18.3 % (13-45) 04/15/19 04:15 Harvey % (Auto) 8.1 % (3-13) 04/15/19 04:15 Eos % (Auto) 0.3 % (0-6) 04/15/19 04:15 Baso % (Auto) 0.4 % (0-2) 04/15/19 04:15 Absolute Neuts (auto) 8.4 10^3/uL (1.7-8.2) H 04/15/19 04:15 Absolute Lymphs (auto) 2.1 10^3/uL (0.5-4.7) 04/15/19 04:15 Absolute Monos (auto) 0.9 10^3/uL (0.1-1.4) 04/15/19 04:15 Absolute Eos (auto) 0.0 10^3/uL (0.0-0.6) 04/15/19 04:15 Absolute Basos (auto) 0.0 10^3/uL (0.0-0.2) 04/15/19 04:15 Seg Neutrophils % 72.9 % (42-78) 04/15/19 04:15 Sodium 135.1 mmol/L (137-145) L 04/15/19 04:15 Potassium 4.0 mmol/L (3.6-5.0) 04/15/19 04:15 Chloride 101 mmol/L (98-107) 04/15/19 04:15 Carbon Dioxide 21 mmol/L (22-30) L 04/15/19 04:15 Anion Gap 13 (5-19) 04/15/19 04:15 BUN 11 mg/dL (7-20) 04/15/19 04:15 Creatinine 0.65 mg/dL (0.52-1.25) 04/15/19 04:15 Est GFR ( Amer) > 60 (>60) 04/15/19 04:15 Est GFR (MDRD) Non-Af > 60 (>60) 04/15/19 04:15 Glucose 76 mg/dL (75-110) 04/15/19 04:15 Calcium 8.9 mg/dL (8.4-10.2) 04/15/19 04:15 Total Bilirubin 0.7 mg/dL (0.2-1.3) 04/13/19 12:43 Direct Bilirubin 0.3 mg/dL (0.0-0.4) 04/13/19 12:43 Neonat Total Bilirubin Not Reportable 04/13/19 12:43 Neonat Direct Bilirubin Not Reportable 04/13/19 12:43 Neonat Indirect Bili Not Reportable 04/13/19 12:43 AST 43 U/L (17-59) 04/13/19 12:43 ALT 37 U/L (<50) 04/13/19 12:43 Alkaline Phosphatase 153 U/L (38-126) H 04/13/19 12:43 Total Protein 8.0 g/dL (6.3-8.2) 04/13/19 12:43 Albumin 4.2 g/dL (3.5-5.0) 04/13/19 12:43 Lipase 633.7 U/L (23-300) H 04/13/19 12:43 Impressions: Abdomen/Pelvis CT 04/13/19 00:00 IMPRESSION: Status post partial colectomy with right lower quadrant colostomy. The ileum is air and fluid distended, taper to normal in the region of the surgical bed. No pelvic abscess or free air. Findings are consistent with postsurgical ileus versus developing small bowel obstruction (although no CT findings of arnulfo mechanical obstruction). Enteric tube demonstrating appropriate positioning. Other chronic and incidental findings as detailed above. KUB X-Ray 04/13/19 11:45 IMPRESSION: DIFFUSE SMALL BOWEL DILATION. ILEUS VERSUS OBSTRUCTION. Abdomen X-Ray 04/14/19 07:00 IMPRESSION: NASOGASTRIC TUBE DESCRIBED. CONTINUED SMALL BOWEL DILATION.
[2019-04-17 09:20] VITALS: BP 153/65
== END 2019-04-17 10:16 | disposition home health service (06) | DRG 348 ==
LOC: ER 11:35 → EH 19:05 → 4S 20:24
PROVIDERS: ADMIT Surgery; ATTEND Surgery
PROC: 0WQFXZ2 Repair Abdominal Wall, Stoma, External Approach (ICD-10-PCS; 2019-04-14)
PROC: 0DNP0ZZ Release Rectum, Open Approach (ICD-10-PCS; principal; 2019-04-14 11:00)
DX: K91.30 Postprocedural intestinal obstruction, unspecified as to partial versus complete (principal); K94.09 Other complications of colostomy; K21.9 Gastro-esophageal reflux disease without esophagitis; F17.210 Nicotine dependence, cigarettes, uncomplicated; Y83.2 Surgical operation with anastomosis, bypass or graft as the cause of abnormal reaction of the patient, or of later complication, without mention of misadventure at the time of the procedure; Y92.098 Other place in other non-institutional residence as the place of occurrence of the external cause; Z90.49 Acquired absence of other specified parts of digestive tract
CPT/HCPCS: 36415; 74018; 74019; 74177; 790; 80048; 80053; 83690; 85025; 85027; 96361; 96374; 96375; 96376; 99284; C1765; J0690; J1100; J1170; J1885; J2250; J2270; J2405; J2704; J2710; J2765; J3010; J3490; J7030; S0028

== ENCOUNTER → 2019-05-27 | Outpatient (CLI) | payer OTHER ==
--- NOTE | 2019-05-27 15:40 | RADIOLOGY REPORT (SQ) ---
EXAM DESCRIPTION: BARIUM ENEMA W/AIR COMPLETED DATE/TIME: 05/27/2019 11:07 am REASON FOR STUDY: K57.92 DVTRCLI OF INTEST, PART UNSP, W/O PERF OR ABSCESS W/O BLEED K57.92 DVTRCLI OF INTEST, PART UNSP, W/O PERF OR ABSCESS W/O COMPARISON: None. FLUOROSCOPY TIME: 3 minutes 11 images saved to PACS. TECHNIQUE: Following retrograde filling of the colon through a left lower quadrant ostomy with water -soluble contrast, fluoroscopic spot and overhead imaging of the colon was obtained and saved to PACS . LIMITATIONS: None. FINDINGS: [employer] KUB: Non obstructive bowel gas pattern. CECUM: Normal cecum. Appendix visualized. ASCENDING COLON: No masses, strictures, or perforations. TRANSVERSE COLON: No masses, strictures, or perforations. DESCENDING COLON: No masses, strictures, or perforations. A few scattered diverticuli are seen. SIGMOID COLON: Not visualized, prior sigmoid resection. RECTUM: Not applicable POST EVAC: Near complete evacuation of contrast. OTHER: No other significant finding. IMPRESSION: SINGLE CONTRAST ENEMA THROUGH LEFT LOWER QUADRANT OSTOMY DEMONSTRATES A FEW SCATTERED DI VERTICULI IN THE DESCENDING COLON. OTHERWISE UNREMARKABLE STUDY. . COMMENT: None Quality ID [id number]: Final reports for procedures using fluoroscopy that document radiation exposure blanca josé, or exposure time and number of fluorographic images (if radiation exposure indices are not avail able) TECHNICAL DOCUMENTATION: JOB ID: [id number] [employer]- All Rights Reserved Reading location - IP/workstation name: [email or web address] [id number]
== END ==
LOC: RAD 09:44
PROVIDERS: ATTEND Surgery
DX: K57.92 Diverticulitis of intestine, part unspecified, without perforation or abscess without bleeding (principal)
CPT/HCPCS: 74280

== ENCOUNTER 2019-07-11 05:22 | Inpatient (IN) | payer OTHER ==
[2019-07-04 10:02] LABS: HEMATOCRIT 42.8 % (37.9-51.0); HEMOGLOBIN 14.7 g/dL (13.5-17.0); MEAN CORPUSCULAR HEMOGLOBIN 28.1 pg (27.0-33.4); MEAN CORPUSCULAR HGB CONC 34.4 g/dL (32.0-36.0); MEAN CORPUSCULAR VOLUME 82 fl (80-97); PLATELET COUNT 273 10^3/uL (150-450); RED BLOOD COUNT 5.24 10^6/uL (4.35-5.55); RED CELL DISTRIBUTION WIDTH 13.2 % (11.5-14.0); WHITE BLOOD COUNT 7.5 10^3/uL (4.0-10.5)
[2019-07-04 10:23] LABS: ANION GAP 7 (5-19); BLOOD UREA NITROGEN 12 mg/dL (7-20); CALCIUM 9.7 mg/dL (8.4-10.2); CARBON DIOXIDE 27 mmol/L (22-30); CHLORIDE 105 mmol/L (98-107); GLUCOSE 82 mg/dL (75-110); POTASSIUM 4.5 mmol/L (3.6-5.0)
[~2019-07-11 05:22] MED LIST: CEFAZOLIN SODIUM 2 GM in DEXTROSE 5%-WATER 100 ML IV PRN; LACTATED RINGERS 1000 ML IV PRN; LIDOCAINE 0.5% INJ-PF (5 MG/ML) 50 ML SDV SUBCUT PRN
[2019-07-11] MEDS ORDERED: HYDROMORPHONE HCL INJ/PF 2 MG/ML AMPULE ONE (06:50)
[2019-07-11] MEDS ORDERED: LIDOCAINE 2% INJ-PF (20 MG/ML) 10 ML AMPUL ONE (06:50)
[2019-07-11] MEDS ORDERED: FENTANYL CITRATE INJ/PF 100 MCG/2 ML AMPUL ONE (06:50)
[2019-07-11] MEDS ORDERED: PROPOFOL INJ 200 MG/20 ML VIAL IV ONE (06:50)
[2019-07-11] MEDS ORDERED: DEXAMETHASONE SOD PHOSPHATE INJ 4 MG/1 ML VIAL ONE (06:50)
[2019-07-11] MEDS ORDERED: ONDANSETRON HCL INJ/PF 4 MG/2 ML SDV ONE (06:50)
[2019-07-11] MEDS ORDERED: MIDAZOLAM 2 MG/2 ML INJ ONE (06:50)
[2019-07-11] MEDS ORDERED: BUPIVACAINE INJ/PF LIPOSOME/PF 266 MG/20 ML SDV ONE (07:05)
[2019-07-11] MEDS ORDERED: BUPIVACAINE HCL 0.25 % INJ/PF (2.5 MG/1 ML) 30 ML VIAL ONE (07:05)
[2019-07-11] MEDS ORDERED: MEPERIDINE HCL/PF INJ 25 MG/1 ML DISP.SYRIN IV PRN (07:55)
[2019-07-11] MEDS ORDERED: DIPHENHYDRAMINE HCL 50 MG/ML VIAL IV PRN (07:55)
[2019-07-11] MEDS ORDERED: OXYCODONE-ACETAMINOPHEN 5-325 MG TABLET PO PRN ×2 (07:55)
[2019-07-11] MEDS ORDERED: PROMETHAZINE HCL INJ 25 MG/1 ML VIAL IV PRN ×2 (07:55)
[2019-07-11] MEDS ORDERED: MORPHINE SULFATE 10 MG/ML INJ IV PRN (07:55)
[2019-07-11] MEDS ORDERED: FENTANYL CITRATE INJ/PF 100 MCG/2 ML AMPUL IV PRN ×3 (07:55)
--- NOTE | 2019-07-11 09:57 | Operative Report ---
Nonrecallable Operative Report DATE OF SURGERY: 07/11/19 PREOPERATIVE DIAGNOSIS: History of perforated diverticulitis left inguinal hernia POSTOPERATIVE DIAGNOSIS: History of diverticulitis perforated left inguinal hernia OPERATION: Colostomy takedown left inguinal hernia repair incidental appendectomy SURGEON: SHANIQUA RODRÍGUEZ ANESTHESIA: GA TISSUE REMOVED OR ALTERED: Appendix COMPLICATIONS: None ESTIMATED BLOOD LOSS: 100 cc INTRAOPERATIVE FINDINGS: Direct inguinal hernia PROCEDURE: Procedure note; After appropriate timeout and site verification the abdomen was prepped and draped in usual sterile fashion. The patient was placed on the operative table in low lithotomy position. The previous stoma in the left lower quadrant was oversewn with a running 0 silk suture. A midline incision was then made from just above the umbilicus to the pubic symphysis dissection was carried out through subcutaneous tissue with Bovie cautery. We entered the abdominal cavity with Bovie cautery and noted that there was not a significant number of adhesions. The small bowel was eviscerated and run from ligament of Treitz to terminal ileum. It appeared to be normal. Palpation of the upper abdomen revealed normal liver stomach pancreas spleen. We placed a [place] retractor for retraction and took down the ostomy with Bovie cautery and the skin circumferentially dissection down through subcutaneous tissue with Bovie cautery the stoma was then taken down from the left anterior abdominal wall. We then incised the white line of Toldt from the mid descending colon up to the splenic flexure took down the splenic flexure mobilized the omentum from the splenic flexure with Bovie cautery the LigaSure device. This allowed us to bring the descending colon easily down to the pelvis. Attention was then turned to the rectal stump we mobilized the peritoneum along the right and left side of the rectal stump identifying the left ureter and being careful not to injure that. Once the rectal stump was taken down the previous Prolene sutures that were placed to identified were removed. We then amputated off the end of the stoma after placing a pursestring suture on the descending colon just proximal to the stoma. We opened up the end of the descending colon and sized it with the EEA sizers and easily excepted a 29 anvil was placed into the end of the descending colon the pursing suture was tied down. We then placed the serial dilators through the rectum up to 29 mm and then placed a stapler into the rectum opened it connected to the anvil in the descending colon to close it fired creating a coloproctostomy. We then turned attention to left inguinal hernia as stated we could not use mesh to repair it was a direct inguinal hernia. I took down the peritoneum with Bovie cautery to gain access to the retroperitoneal space and then reapproximated the conjoined tendon to the David's ligament being careful not to injure the spermatic vessels or or iliac vessels. This closed the defect. Once this was closed we turned attention to the appendix we took down the mesoappendix with the LigaSure device came across the base the appendix on the cecum with one firing of the AKIKO stapler with a blue load. We remove the appendix Copiously irrigated the abdominal cavity suctioned dry. I then checked the anastomosis by insufflating with air through the rectum with a clamp proximally under water and there was no evidence of any leaks. Subsequent to this I reinforce the anastomosis circumferentially with interrupted placed 2-0 silk sutures. We then closed the fascial defect in the left abdominal wall from the previous stoma with interrupted #2 Polysorb's in the rectus fascia posteriorly and anteriorly. We then irrigated the abdominal cavity suctioned dry placed a Jona-Alarcon drain in the pelvis brought out through a stab wound in the left lower quadrant we then closed the midline fascia with a running double looped 0 PDS suture and closed all skin incisions with standard skin clips. Estimated blood loss was 100 cc. Sponge and needle counts were correct x2. Patient was awakened in the operative extubated transferred recovery in stable condition no complications
[2019-07-11] MEDS: LORAZEPAM INJ 2 MG/1 ML VIAL ONE ×2 (10:07→10:58)
[2019-07-11] MEDS: HYDROMORPHONE HCL INJ/PF 2 MG/ML AMPULE ONE ×4 (10:09→13:20)
[2019-07-11] MEDS ORDERED: NEOSTIGMINE METHYLSULFATE 10 MG/10 ML VIAL ONE (12:21)
[2019-07-11] MEDS ORDERED: GLYCOPYRROLATE 1 MG/5 ML VIAL ONE (12:21)
[2019-07-11] MEDS ORDERED: KETOROLAC TROMETHAMINE 60 MG/2 ML SDV ONE (12:21)
[2019-07-11] MEDS ORDERED: PHENYLEPHRINE HCL INJ/PF 10 MG/1 ML SDV ONE (12:21)
[2019-07-11] MEDS ORDERED: CEFAZOLIN 1 GM/D5W RTU 50 ML IV SCH (14:00)
[2019-07-11] MEDS ORDERED: FUROSEMIDE INJ/PF 40 MG/4 ML SDV ONE (14:15)
[2019-07-11] MEDS ORDERED: RINGERS SOLUTION,LACTATED 1,000 ML IV ONE (15:00)
[2019-07-11] MEDS ORDERED: FUROSEMIDE INJ/PF 20 MG/2 ML SDV IV ONE (15:00)
[2019-07-11] MEDS: CEFAZOLIN SODIUM 1 GM in DEXTROSE 5%-WATER 50 ML IV SCH ×2 (15:10→22:58)
[2019-07-11] MEDS: KETOROLAC TROMETHAMINE INJ/PF 30 MG/1 ML SDV IV SCH ×3 (15:37→23:00)
[2019-07-11] MEDS: MORPHINE SULFATE 10 MG/ML INJ IV PRN ×3 (15:48→21:21)
[2019-07-11] MEDS: ONDANSETRON HCL INJ/PF 4 MG/2 ML SDV IV PRN ×2 (15:49→17:07)
[2019-07-11] MEDS: HEPARIN SOD (PORCINE) 5,000 UNIT/ML 1 ML VIAL SUBCUT SCH ×2 (16:02→21:20)
[2019-07-11] MEDS: FAMOTIDINE INJ/PF 20 MG/2 ML SDV IV SCH ×2 (16:03→21:21)
[2019-07-11] MEDS: METRONIDAZOLE 500 MG/NS RTU 500 MG/100 ML RTUPB IV SCH ×2 (16:03→21:21)
[2019-07-11] MEDS: POTASSI CL 20 MEQ/D5-1/2NS 1L 1,000 ML IV PRN (19:38)
[2019-07-12] MEDS: MORPHINE SULFATE 10 MG/ML INJ IV PRN ×2 (02:16→06:42)
[2019-07-12] MEDS: CEFAZOLIN SODIUM 1 GM in DEXTROSE 5%-WATER 50 ML IV SCH ×3 (05:10→21:04)
[2019-07-12] MEDS: HEPARIN SOD (PORCINE) 5,000 UNIT/ML 1 ML VIAL SUBCUT SCH ×3 (05:10→21:04)
[2019-07-12] MEDS: KETOROLAC TROMETHAMINE INJ/PF 30 MG/1 ML SDV IV SCH ×4 (05:11→23:38)
[2019-07-12] MEDS: POTASSI CL 20 MEQ/D5-1/2NS 1L 1,000 ML IV PRN ×2 (05:13→16:24)
[2019-07-12] MEDS: ONDANSETRON HCL INJ/PF 4 MG/2 ML SDV IV PRN ×2 (05:30→16:44)
[2019-07-12] MEDS: METRONIDAZOLE 500 MG/NS RTU 500 MG/100 ML RTUPB IV SCH ×3 (06:35→22:30)
[2019-07-12 07:20] LABS: ABSOLUTE BASOPHILS # (AUTO) 0.1 10^3/uL (0.0-0.2); ABSOLUTE LYMPHOCYTES (AUTO) 1.7 10^3/uL (0.5-4.7); ABSOLUTE MONOCYTES (AUTO) 0.9 10^3/uL (0.1-1.4); BASOPHILS % (AUTO) 0.5 % (0-2); EOSINOPHILS % (AUTO) 0.4 % (0-6); HEMATOCRIT 36.2 % (37.9-51.0); LYMPHOCYTES % (AUTO) 17.5 % (13-45); MEAN CORPUSCULAR HEMOGLOBIN 28.6 pg (27.0-33.4); MEAN CORPUSCULAR HGB CONC 35.8 g/dL (32.0-36.0); MEAN CORPUSCULAR VOLUME 80 fl (80-97); MONOCYTES % (AUTO) 8.9 % (3-13); PLATELET COUNT 223 10^3/uL (150-450); RED BLOOD COUNT 4.54 10^6/uL (4.35-5.55); SEGMENTED NEUTROPHILS % (AUTO) 72.7 % (42-78); TOTAL CELLS COUNTED % (AUTO) 100 %; WHITE BLOOD COUNT 9.7 10^3/uL (4.0-10.5)
[2019-07-12 07:34] LABS: ANION GAP 8 (5-19); BLOOD UREA NITROGEN 14 mg/dL (7-20); CALCIUM 8.7 mg/dL (8.4-10.2); CARBON DIOXIDE 26 mmol/L (22-30); CHLORIDE 101 mmol/L (98-107); GLUCOSE 133 mg/dL (75-110); POTASSIUM 3.9 mmol/L (3.6-5.0)
--- NOTE | 2019-07-12 08:46 | PDOC PROGRESS REPORT ---
Subjective Progress Note for:: 07/12/19 Subjective:: still with incisional pain, has not yet got out of bed Reason For Visit: Z43.3 ENCOUNTER FOR ATTENTION TO COLOSTOMY Physical Exam Vital Signs: Temp Pulse Resp BP Pulse Ox 97.6 F 95 16 123/85 96 07/11/19 23:32 07/11/19 23:32 07/11/19 23:32 07/11/19 23:32 07/11/19 23:32 Intake & Output 07/11/19 07/12/19 07/13/19 06:59 06:59 06:59 Intake Total 0 6200 Output Total 2160 Balance 0 4040 Weight 72.7 kg General appearance: PRESENT: mild distress Head exam: PRESENT: normocephalic Eye exam: PRESENT: EOMI Ear exam: PRESENT: normal external ear exam Mouth exam: PRESENT: moist Teeth exam: PRESENT: poor dentation Neck exam: PRESENT: full ROM Respiratory exam: PRESENT: clear to auscultation rosa maria Cardiovascular exam: PRESENT: RRR Pulses: PRESENT: normal carotid pulses, normal radial pulses GI/Abdominal exam: PRESENT: soft, other - wound dry kalyn serosang Rectal exam: PRESENT: deferred Gentrourinary exam: PRESENT: indwelling catheter Extremities exam: PRESENT: full ROM Musculoskeletal exam: PRESENT: full ROM Neurological exam: PRESENT: alert, awake, oriented to person, oriented to place Psychiatric exam: PRESENT: appropriate affect Skin exam: PRESENT: dry Results Laboratory Results: 07/12/19 06:57 07/12/19 06:57 07/11/19 07/12/19 07/12/19 07:35 06:57 06:57 WBC 9.7 RBC 4.54 Hgb 13.0 L Hct 36.2 L MCV 80 MCH 28.6 MCHC 35.8 RDW 13.0 Plt Count 223 Seg Neutrophils % 72.7 Sodium 135.1 L Potassium 3.9 Chloride 101 Carbon Dioxide 26 Anion Gap 8 BUN 14 Creatinine 0.69 Est GFR ( Amer) > 60 Glucose 133 H Calcium 8.7 Blood Type A NEGATIVE Antibody Screen NEGATIVE Assessment & Plan - Plan Summary Plan Summary: s/p colostomy takedown doing ok still iwth incisional pain will change to dilaudid out of bed today sips
[2019-07-12] MEDS: FAMOTIDINE INJ/PF 20 MG/2 ML SDV IV SCH ×2 (09:09→21:04)
[2019-07-12] MEDS: HYDROMORPHONE HCL INJ/PF 2 MG/ML AMPULE IV PRN ×5 (09:09→22:30)
[2019-07-13] MEDS: HYDROMORPHONE HCL INJ/PF 2 MG/ML AMPULE IV PRN ×7 (01:18→21:57)
[2019-07-13] MEDS: POTASSI CL 20 MEQ/D5-1/2NS 1L 1,000 ML IV PRN ×3 (01:18→21:38)
[2019-07-13] MEDS: CEFAZOLIN 1 GM/D5W RTU 1 GM/50 ML RTUPB IV SCH ×3 (05:21→21:38)
[2019-07-13] MEDS: HEPARIN SOD (PORCINE) 5,000 UNIT/ML 1 ML VIAL SUBCUT SCH ×3 (05:22→21:39)
[2019-07-13] MEDS: KETOROLAC TROMETHAMINE INJ/PF 30 MG/1 ML SDV IV SCH ×3 (05:22→17:16)
[2019-07-13] MEDS: METRONIDAZOLE 500 MG/NS RTU 500 MG/100 ML RTUPB IV SCH ×3 (06:11→22:46)
--- NOTE | 2019-07-13 06:47 | PDOC PROGRESS REPORT ---
Subjective Progress Note for:: 07/13/19 Subjective:: feels better, taking some sips of clears passed small amts of flatus Reason For Visit: Z43.3 ENCOUNTER FOR ATTENTION TO COLOSTOMY Physical Exam Vital Signs: Temp Pulse Resp BP Pulse Ox 97.9 F 82 18 105/80 95 07/12/19 23:50 07/12/19 23:50 07/12/19 23:50 07/12/19 23:50 07/12/19 23:50 Intake & Output 07/11/19 07/12/19 07/13/19 06:59 06:59 06:59 Intake Total 0 6200 2800 Output Total 2160 1525 Balance 0 4040 1275 Weight 72.7 kg 72.5 kg General appearance: PRESENT: no acute distress Head exam: PRESENT: normocephalic Eye exam: PRESENT: EOMI Ear exam: PRESENT: normal external ear exam Mouth exam: PRESENT: moist Neck exam: PRESENT: full ROM Respiratory exam: PRESENT: clear to auscultation rosa maria Cardiovascular exam: PRESENT: RRR Pulses: PRESENT: normal radial pulses, normal femoral pulses GI/Abdominal exam: PRESENT: soft - wound clean, dry Rectal exam: PRESENT: deferred Gentrourinary exam: PRESENT: indwelling catheter Extremities exam: PRESENT: full ROM Musculoskeletal exam: PRESENT: full ROM Neurological exam: PRESENT: alert, awake, oriented to person, oriented to place Psychiatric exam: PRESENT: appropriate affect Skin exam: PRESENT: dry Results Laboratory Results: 07/12/19 06:57 07/12/19 06:57 07/12/19 07/12/19 06:57 06:57 WBC 9.7 RBC 4.54 Hgb 13.0 L Hct 36.2 L MCV 80 MCH 28.6 MCHC 35.8 RDW 13.0 Plt Count 223 Seg Neutrophils % 72.7 Sodium 135.1 L Potassium 3.9 Chloride 101 Carbon Dioxide 26 Anion Gap 8 BUN 14 Creatinine 0.69 Est GFR ( Amer) > 60 Glucose 133 H Calcium 8.7 Assessment & Plan - Plan Summary Plan Summary: pod 2 s/p coloproctostomy and left inguinal hernia repair doing ok passed small amts of flatus plan dc mckeon cont only clears awaiting return of bowel function;
[2019-07-13] MEDS: FAMOTIDINE INJ/PF 20 MG/2 ML SDV IV SCH ×2 (09:10→21:40)
[2019-07-13] MEDS: ONDANSETRON HCL INJ/PF 4 MG/2 ML SDV IV PRN (22:46)
[2019-07-14] MEDS: KETOROLAC TROMETHAMINE INJ/PF 30 MG/1 ML SDV IV SCH ×4 (00:07→18:05)
[2019-07-14] MEDS: HYDROMORPHONE HCL INJ/PF 2 MG/ML AMPULE IV PRN ×6 (01:06→22:04)
[2019-07-14] MEDS: ONDANSETRON HCL INJ/PF 4 MG/2 ML SDV IV PRN ×4 (03:02→22:04)
[2019-07-14] MEDS: HEPARIN SOD (PORCINE) 5,000 UNIT/ML 1 ML VIAL SUBCUT SCH ×3 (05:28→22:04)
[2019-07-14] MEDS: CEFAZOLIN 1 GM/D5W RTU 1 GM/50 ML RTUPB IV SCH ×3 (05:28→22:03)
[2019-07-14] MEDS: METRONIDAZOLE 500 MG/NS RTU 500 MG/100 ML RTUPB IV SCH ×3 (06:22→22:52)
--- NOTE | 2019-07-14 08:42 | PDOC PROGRESS REPORT ---
Subjective Progress Note for:: 07/14/19 Subjective:: s/p coloproctostomy doing well passed some flatus wants to eat. Reason For Visit: Z43.3 ENCOUNTER FOR ATTENTION TO COLOSTOMY Physical Exam Vital Signs: Temp Pulse Resp BP Pulse Ox 97.8 F 84 18 118/72 99 07/14/19 00:00 07/14/19 00:00 07/14/19 00:00 07/14/19 00:00 07/14/19 00:00 Intake & Output 07/13/19 07/14/19 07/15/19 06:59 06:59 06:59 Intake Total 2850 2450 Output Total 1525 960 Balance 1325 1490 Weight 72.5 kg 72.8 kg General appearance: PRESENT: no acute distress Head exam: PRESENT: normocephalic Eye exam: PRESENT: EOMI Ear exam: PRESENT: normal external ear exam Mouth exam: PRESENT: moist Neck exam: PRESENT: full ROM Cardiovascular exam: PRESENT: RRR Pulses: PRESENT: normal radial pulses, normal femoral pulses Breast: PRESENT: Normal GI/Abdominal exam: PRESENT: distended, soft Rectal exam: PRESENT: deferred Extremities exam: PRESENT: full ROM Musculoskeletal exam: PRESENT: full ROM Neurological exam: PRESENT: alert, awake, oriented to person, oriented to place Skin exam: PRESENT: dry Results Laboratory Results: 07/12/19 06:57 07/12/19 06:57 Assessment & Plan - Plan Summary Plan Summary: s/p coloproctostomy doing ok pod 3 starting to pass some flatus emma clears will advance to full liquids
[2019-07-14] MEDS: FAMOTIDINE INJ/PF 20 MG/2 ML SDV IV SCH ×2 (09:04→22:04)
[2019-07-14] MEDS: DOCUSATE SODIUM 100 MG CAPSULE PO SCH ×2 (09:04→18:06)
[2019-07-14] MEDS: POTASSI CL 20 MEQ/D5-1/2NS 1L 1,000 ML IV PRN ×2 (09:13→19:26)
[2019-07-15] MEDS: KETOROLAC TROMETHAMINE INJ/PF 30 MG/1 ML SDV IV SCH ×4 (00:01→18:02)
[2019-07-15] MEDS: HYDROMORPHONE HCL INJ/PF 2 MG/ML AMPULE IV PRN ×6 (01:13→18:34)
[2019-07-15] MEDS: ONDANSETRON HCL INJ/PF 4 MG/2 ML SDV IV PRN ×5 (04:17→21:26)
[2019-07-15] MEDS: POTASSI CL 20 MEQ/D5-1/2NS 1L 1,000 ML IV PRN ×4 (05:11→18:23)
[2019-07-15] MEDS: CEFAZOLIN 1 GM/D5W RTU 1 GM/50 ML RTUPB IV SCH ×3 (05:11→21:27)
[2019-07-15] MEDS: METRONIDAZOLE 500 MG/NS RTU 500 MG/100 ML RTUPB IV SCH ×3 (06:04→21:28)
[2019-07-15] MEDS: HEPARIN SOD (PORCINE) 5,000 UNIT/ML 1 ML VIAL SUBCUT SCH ×3 (06:05→21:26)
--- NOTE | 2019-07-15 07:55 | PDOC PROGRESS REPORT ---
Subjective Progress Note for:: 07/15/19 Subjective:: passing flatus Reason For Visit: Z43.3 ENCOUNTER FOR ATTENTION TO COLOSTOMY Physical Exam Vital Signs: Temp Pulse Resp BP Pulse Ox 97.9 F 77 16 144/88 H 96 07/14/19 23:37 07/14/19 23:37 07/14/19 23:37 07/14/19 23:37 07/14/19 23:37 Intake & Output 07/14/19 07/15/19 07/16/19 06:59 06:59 06:59 Intake Total 3450 3287 Output Total 960 1753 Balance 2490 1534 Weight 72.8 kg 72.8 kg General appearance: PRESENT: no acute distress Head exam: PRESENT: normocephalic Eye exam: PRESENT: EOMI Ear exam: PRESENT: normal external ear exam Mouth exam: PRESENT: moist Neck exam: PRESENT: full ROM Respiratory exam: PRESENT: clear to auscultation rosa maria Cardiovascular exam: PRESENT: RRR Pulses: PRESENT: normal radial pulses, normal femoral pulses Vascular exam: PRESENT: normal capillary refill Breast: PRESENT: Normal GI/Abdominal exam: PRESENT: soft, other - left groin iwth swelling, fluid vs bowel loop cannot reduce Rectal exam: PRESENT: deferred Extremities exam: PRESENT: full ROM Musculoskeletal exam: PRESENT: full ROM Neurological exam: PRESENT: alert, awake, oriented to person, oriented to place Psychiatric exam: PRESENT: appropriate affect Skin exam: PRESENT: dry Results Laboratory Results: 07/12/19 06:57 07/12/19 06:57 Assessment & Plan - Plan Summary Plan Summary: passing flatus now iwth left groin swelling will obtain ct to r/o incarcerated hernia
[2019-07-15] MEDS: FAMOTIDINE INJ/PF 20 MG/2 ML SDV IV SCH ×2 (09:54→21:27)
[2019-07-15] MEDS: DOCUSATE SODIUM 100 MG CAPSULE PO SCH ×2 (09:54→17:08)
--- NOTE | 2019-07-15 14:24 | RADIOLOGY REPORT (SQ) ---
EXAM DESCRIPTION: CT ABD/PELVIS NO ORAL OR IV COMPLETED DATE/TIME: 07/15/2019 1:38 pm REASON FOR STUDY: r/o incarcerated hernia Z43.3 ENCOUNTER FOR ATTENTION TO COLOSTOMY K40.90 UNIL I NGUINAL HERNIA, W/O OBST OR GANGR, NOT SPCF COMPARISON: CT of the abdomen and pelvis with contrast from 04/13/2019 TECHNIQUE: CT scan of the abdomen and pelvis performed without intravenous or oral contrast. Images reviewed with lung, soft tissue, and bone windows. Reconstructed coronal and sagittal MPR images revi ewed. All images stored on PACS. All CT scanners at this facility use dose modulation, iterative reconstruction, and/or weight based d osing when appropriate to reduce radiation dose to as low as reasonably achievable (ALARA). [facility]: Dose Right [facility]: CareDose [facility]: Dose Right [facility]: Teradose 4D [facility]: [employer] RADIATION DOSE: CT Rad equipment meets quality standard of care and radiation dose reduction techniq ues were employed. CTDIvol: 4.3 mGy. DLP: 243 mGy-cm. LIMITATIONS: None. FINDINGS: LOWER CHEST: There is a trace amount of fluid in the right pleural space. The solid 3 mm nodule in the left lower lobe (image 5 of series 4) is stable. The perifissural opacities in the lef t upper lobe (images 1 and 9 of series 4) are nonspecific. The opacities in the right lower lobe anibal t extends to the pleural surface are favored to represent atelectasis. There is atherosclerotic calcification of the coronary arteries and aortic valve leaflets. There is no pericardial effusion or cardiomegaly. NON-CONTRASTED LIVER, SPLEEN, ADRENALS: Evaluation is limited due to the absence of intravenous contr ast. The diffuse low attenuation of the hepatic parenchyma is consistent with hepatic steatosis. Th e spleen is normal in size. There is no abnormality of the adrenal glands. PANCREAS: No acute gross abnormality of the pancreas. GALLBLADDER: Cholelithiasis. RIGHT KIDNEY AND URETER: Evaluation is limited due to the absence of intravenous contrast. There is a 2 mm calculus within an upper pole calyx. There is no hydronephrosis, hydroureter or ureterolithia sis. LEFT KIDNEY AND URETER: Evaluation is limited due to the absence of intravenous contrast. There are several caliceal calculi that measure up to 5 mm. There is no hydronephrosis, hydroureter or uretero lithiasis. AORTA AND RETROPERITONEUM: No abdominal aortic aneurysm. There is no retroperitoneal adenopathy, hem orrhage or mass. BOWEL AND PERITONEAL CAVITY: Status post ventral laparotomy, reversal of the left lower quadrant osto my, and creation of a colocolonic anastomosis. There is a surgical drain in place the terminates abo ve the seminal vesicles. There is considerable amount of free intraperitoneal air and there is a sma ll amount of loculated fluid in the left lower quadrant ; the fluid extends into the left inguinal he rnia. The bowel is normal in caliber and there is no evidence of obstruction. APPENDIX: Unable to identify the appendix. PELVIS, BLADDER, AND ABDOMINAL WALL:The prostate gland is normal in size. The urinary bladder is non distended. There is subcutaneous air at the site of the prior ostomy. BONES: No acute findings. OTHER: Moderately-sized hiatal hernia. IMPRESSION: 1. Status post ventral laparotomy, reversal of the left lower quadrant ostomy, and creat ion of a colocolonic anastomosis. There is a surgical drain in place the terminates above the semina l vesicles. The free intraperitoneal air that is present is expected in the immediate postoperative period. There is a small amount of loculated fluid in the left lower quadrant that extends into the l eft inguinal hernia - the attenuation of the fluid measures less than 20 Hounsfield units. The bowel is normal in caliber and there is no evidence of obstruction. 2. Moderately-sized hiatal hernia. 3. Cholelithiasis. 4. Nephrolithiasis. 5. Other findings as detailed above. COMMENT: Quality ID # [id number]: Final reports with documentation of one or more dose reduction techniques (e.g., Automated exposure control, adjustment of the mA and/or kV according to patient size, use of iterative reconstruction technique) TECHNICAL DOCUMENTATION: JOB ID: [id number] 2010 [employer]- All Rights Reserved Reading location - IP/workstation name: [email or web address]
[2019-07-16] MEDS: KETOROLAC TROMETHAMINE INJ/PF 30 MG/1 ML SDV IV SCH ×3 (00:25→17:24)
[2019-07-16] MEDS: HYDROMORPHONE HCL INJ/PF 2 MG/ML AMPULE IV PRN ×3 (00:26→14:36)
[2019-07-16] MEDS: ONDANSETRON HCL INJ/PF 4 MG/2 ML SDV IV PRN (04:14)
[2019-07-16] MEDS: POTASSI CL 20 MEQ/D5-1/2NS 1L 1,000 ML IV PRN ×2 (05:09→13:27)
[2019-07-16] MEDS: METRONIDAZOLE 500 MG/NS RTU 500 MG/100 ML RTUPB IV SCH ×2 (05:09→13:14)
[2019-07-16] MEDS: CEFAZOLIN 1 GM/D5W RTU 1 GM/50 ML RTUPB IV SCH ×2 (05:12→13:14)
[2019-07-16] MEDS: HEPARIN SOD (PORCINE) 5,000 UNIT/ML 1 ML VIAL SUBCUT SCH ×2 (05:15→13:27)
--- NOTE | 2019-07-16 08:39 | PDOC PROGRESS REPORT ---
Subjective Progress Note for:: 07/16/19 Subjective:: pod 5 s/p colostomy dropback Reason For Visit: Z43.3 ENCOUNTER FOR ATTENTION TO COLOSTOMY Physical Exam Vital Signs: Temp Pulse Resp BP Pulse Ox 98.3 F 86 17 121/84 98 07/16/19 04:50 07/16/19 04:50 07/16/19 04:50 07/16/19 04:50 07/16/19 04:50 Intake & Output 07/15/19 07/16/19 07/17/19 06:59 06:59 06:59 Intake Total 3287 3513 Output Total 1753 2032 Balance 1534 1481 Weight 72.8 kg 72.8 kg General appearance: PRESENT: mild distress Head exam: PRESENT: normocephalic Eye exam: PRESENT: EOMI Mouth exam: PRESENT: moist Teeth exam: PRESENT: poor dentation Neck exam: PRESENT: full ROM Respiratory exam: PRESENT: clear to auscultation rosa maria Cardiovascular exam: PRESENT: RRR Pulses: PRESENT: normal radial pulses, normal femoral pulses GI/Abdominal exam: PRESENT: soft Rectal exam: PRESENT: deferred Extremities exam: PRESENT: full ROM Neurological exam: PRESENT: alert, awake, oriented to person Psychiatric exam: PRESENT: anxious Skin exam: PRESENT: dry Results Laboratory Results: 07/12/19 06:57 07/12/19 06:57 Impressions: Abdomen/Pelvis CT 07/15/19 00:00 IMPRESSION: 1. Status post ventral laparotomy, reversal of the left lower quadrant ostomy, and creation of a colocolonic anastomosis. There is a surgical drain in place the terminates above the seminal vesicles. The free intraperi toneal air that is present is expected in the immediate postoperative period. There is a small amount of loculated fluid in the left lower quadrant that extends into the left inguinal hernia - the attenuation of the fluid measures less than 20 Hounsfield units. The bowel is normal in caliber and there is no evidence of obstruction. 2. Moderately-sized hiatal hernia. 3. Cholelithiasis. 4. Nephrolithiasis. 5. Other findings as detailed above. Assessment & Plan - Plan Summary Plan Summary: s/p coloproctostomy and left groin hernia repair doing ok agitated due to c/o not eating passing small amts of stool/old blood ct yesterday revealed no sm bowel in hernia sac, only fluid plan soft diet ;home later today or in am.
[2019-07-16] MEDS: FAMOTIDINE INJ/PF 20 MG/2 ML SDV IV SCH (09:11)
[2019-07-16] MEDS: DOCUSATE SODIUM 100 MG CAPSULE PO SCH ×2 (09:15→17:24)
[2019-07-16] MEDS ORDERED: NEOSTIGMINE METHYLSULFATE 10 MG/10 ML VIAL ONE (13:53)
[2019-07-16] MEDS ORDERED: ROCURONIUM BROMIDE INJ 50 MG/5 ML VIAL IV ONE (13:53)
[2019-07-16] MEDS ORDERED: ONDANSETRON HCL INJ/PF 4 MG/2 ML SDV ONE (13:53)
[2019-07-16] MEDS ORDERED: SUCCINYLCHOLINE CHLORIDE INJ 200 MG/10 ML VIAL ONE (13:53)
[2019-07-16] MEDS ORDERED: GLYCOPYRROLATE 1 MG/5 ML VIAL ONE (13:53)
[2019-07-16] MEDS ORDERED: LORAZEPAM INJ 2 MG/1 ML VIAL IV ONE (15:30)
--- NOTE | 2019-07-16 18:16 | RADIOLOGY REPORT (SQ) ---
EXAM DESCRIPTION: CT ABD/PELVIS ORAL ONLY COMPLETED DATE/TIME: 07/16/2019 5:52 pm REASON FOR STUDY: Abdominal pain Z43.3 ENCOUNTER FOR ATTENTION TO COLOSTOMY K40.90 UNIL INGUINAL H ERNIA, W/O OBST OR GANGR, NOT SPCF COMPARISON: 07/15/2019 TECHNIQUE: CT scan of the abdomen and pelvis performed with oral contrast and no intravenous contras t. Images reviewed with lung, soft tissue, and bone windows. Reconstructed coronal and sagittal MPR i mages reviewed. All images stored on PACS. All CT scanners at this facility use dose modulation, iterative reconstruction, and/or weight based d osing when appropriate to reduce radiation dose to as low as reasonably achievable (ALARA). [facility]: Dose Right [facility]: CareDose [facility]: Dose Right [facility]: Teradose 4D [facility]: [employer] RADIATION DOSE: CT Rad equipment meets quality standard of care and radiation dose reduction techniq ues were employed. CTDIvol: 5.2 mGy. DLP: 265 mGy-cm.mGy. LIMITATIONS: None. FINDINGS: LOWER CHEST: Moderate thick-walled hiatal hernia. Minimal right basilar subsegmental atel ectasis with chronic elevation right hemidiaphragm. NON-CONTRASTED LIVER, SPLEEN, ADRENALS: Liver and spleen look relatively normal allowing for noncontr ast evaluation. No adrenal mass. PANCREAS: No masses. No peripancreatic inflammatory changes. GALLBLADDER: Cholelithiasis without active cholecystitis suggested. RIGHT KIDNEY AND URETER: Minimal nonobstructive nephrolithiasis. LEFT KIDNEY AND URETER: Nonobstructive nephrolithiasis. AORTA AND RETROPERITONEUM: Normal caliber without evidence of aneurysm. BOWEL AND PERITONEAL CAVITY: Free air, slightly improved compared to yesterday. Presumably postopera tive. Mixed density mass in the left lower quadrant along the distal large bowel close to the operat nichelle site. This measures up to 5 cm maximally. Variable internal density, some of which looks like f luid. Suspect this is a postoperative hematoma. This does not appear to communicate with bowel. No extravasated oral contrast detected, although enteric contrast has not yet reached the large bowel b y the time of scanning. Small amount of fluid extends into the inguinal canal on the left, as before . APPENDIX: Not visualized. PELVIS, BLADDER, AND ABDOMINAL WALL: No abnormal pelvic masses. No abdominal wall hernias. Bladder un remarkable. BONES: No significant findings. OTHER: No other significant finding. IMPRESSION: 1. Postoperative changes as previously. Improving free air in the abdomen status post surgery. Pers ists hematoma in the left lower quadrant with additional mild fluid extending into the left inguinal canal these findings do not appear to be significantly changed compared to yesterday. No developing bowel obstruction. TECHNICAL DOCUMENTATION: JOB ID: [id number] Quality ID # [id number]: Final reports with documentation of one or more dose reduction techniques (e.g., Au tomated exposure control, adjustment of the mA and/or kV according to patient size, use of iterative reconstruction technique) 2010 [employer]- All Rights Reserved Reading location - IP/workstation name: [email or web address]
[2019-07-16] MEDS ORDERED: PROPOFOL INJ 200 MG/20 ML VIAL IV ONE (19:07)
[2019-07-16] MEDS ORDERED: HYDROMORPHONE HCL INJ/PF 2 MG/ML AMPULE ONE (19:07)
[2019-07-16] MEDS ORDERED: MIDAZOLAM 2 MG/2 ML INJ ONE (19:07)
[2019-07-16 19:08] LABS: ABSOLUTE BASOPHILS # (AUTO) 0.1 10^3/uL (0.0-0.2); ABSOLUTE EOSINOPHILS # (AUTO) 0.2 10^3/uL (0.0-0.6); ABSOLUTE LYMPHOCYTES (AUTO) 1.4 10^3/uL (0.5-4.7); ABSOLUTE MONOCYTES (AUTO) 0.7 10^3/uL (0.1-1.4); ABSOLUTE NEUT (AUTO) 3.8 10^3/uL (1.7-8.2); BASOPHILS % (AUTO) 0.9 % (0-2); EOSINOPHILS % (AUTO) 3.5 % (0-6); HEMATOCRIT 32.5 % (37.9-51.0); HEMOGLOBIN 11.3 g/dL (13.5-17.0); MEAN CORPUSCULAR HEMOGLOBIN 28.1 pg (27.0-33.4); MEAN CORPUSCULAR HGB CONC 34.8 g/dL (32.0-36.0); MEAN CORPUSCULAR VOLUME 81 fl (80-97); PLATELET COUNT 224 10^3/uL (150-450); RED BLOOD COUNT 4.02 10^6/uL (4.35-5.55); RED CELL DISTRIBUTION WIDTH 13.5 % (11.5-14.0); SEGMENTED NEUTROPHILS % (AUTO) 61.6 % (42-78); TOTAL CELLS COUNTED % (AUTO) 100 %; WHITE BLOOD COUNT 6.1 10^3/uL (4.0-10.5)
[2019-07-16 19:24] LABS: ANION GAP 8 (5-19); BLOOD UREA NITROGEN 5 mg/dL (7-20); CALCIUM 8.6 mg/dL (8.4-10.2); CARBON DIOXIDE 25 mmol/L (22-30); CHLORIDE 101 mmol/L (98-107); GLUCOSE 114 mg/dL (75-110); POTASSIUM 3.8 mmol/L (3.6-5.0)
[2019-07-16] MEDS ORDERED: BUPIVACAINE HCL 0.25 % INJ/PF (2.5 MG/1 ML) 30 ML VIAL ONE (19:30)
[2019-07-16] MEDS ORDERED: DIPHENHYDRAMINE HCL 50 MG/ML VIAL IV PRN (20:30)
[2019-07-16] MEDS ORDERED: MEPERIDINE HCL/PF INJ 25 MG/1 ML DISP.SYRIN IV PRN (20:30)
[2019-07-16] MEDS ORDERED: FENTANYL CITRATE INJ/PF 100 MCG/2 ML AMPUL IV PRN ×3 (20:30)
[2019-07-16] MEDS ORDERED: PROMETHAZINE HCL INJ 25 MG/1 ML VIAL IV PRN ×2 (20:30)
[2019-07-16] MEDS ORDERED: MORPHINE SULFATE 10 MG/ML INJ IV PRN (20:30)
[2019-07-16] MEDS: FENTANYL CITRATE INJ/PF 100 MCG/2 ML AMPUL ONE ×2 (21:10→21:15)
--- NOTE | 2019-07-16 21:24 | Operative Report ---
Nonrecallable Operative Report DATE OF SURGERY: 07/16/19 PREOPERATIVE DIAGNOSIS: Abdominal pain post coloproctostomy POSTOPERATIVE DIAGNOSIS: Negative laparotomy OPERATION: Exploratory laparotomy and abdominal washout SURGEON: SHANIQUA RODRÍGUEZ ANESTHESIA: GA TISSUE REMOVED OR ALTERED: None COMPLICATIONS: None ESTIMATED BLOOD LOSS: 0 INTRAOPERATIVE FINDINGS: No evidence of intraperitoneal leak no evidence of ischemia, normal postoperative anatomy PROCEDURE: Indications for procedure the patient is approximately 5 days status post a coloproctostomy patient began having increasing abdominal pain early this morning. An abdominal CAT scan was obtained with oral contrast did not show leak however it showed free air. Because of these findings he was brought to the operating room for this procedure. Procedure patient was brought to the operating awake alert stable condition placed on the operative table supine position induced under general anesthesia and intubated. After appropriate timeout site verification the abdomen was prepped and draped in usual sterile fashion. The previous midline the saurabh were removed and the midline skin was opened the PDS suture was cut and unraveled and the abdominal cavity was entered. Immediately upon entering the abdominal cavity there was some small amount of serous sanguinous fluid in the pelvis as well as in the right left upper quadrant which was suctioned dry. We lifted off the omentum and as to gain access and visualization of the small bowel the small bowel was then eviscerated and we get a look in the pelvis there was no significant findings there was no stool there is no inflammatory reaction or fibrinous exudate in the pelvis the anastomosis was visualized and appeared to be patent and intact and healthy without evidence of leak. We then ran the small bowel from the ligament of Treitz to the terminal ileum all appeared to be normal the area where the previous appendectomy occurred also appeared to be normal the staple line was intact without leak palpated the upper abdomen there was no evidence of perforation of the stomach there is no fibrinous exudate the liver was palpated and appeared to be normal as was the spleen and the left lobe of the liver. At this point we then irrigated the abdominal cavity with approximately 4 L of saline suctioned dry return the drain back to the pelvis where been previously placed the omentum and then covered the small bowel and we closed the midline fascia with a double looped 0 PDS suture. The skin was then reclosed with standard skin clips which completed the procedure. Estimated blood loss for the procedure was negligible sponge and needle counts were correct x2. The patient was awakened in the operating extubated transferred recovery stable condition.
[2019-07-17] MEDS: KETOROLAC TROMETHAMINE INJ/PF 30 MG/1 ML SDV IV SCH ×5 (01:03→23:57)
[2019-07-17] MEDS: FAMOTIDINE INJ/PF 20 MG/2 ML SDV IV SCH ×3 (01:04→21:29)
[2019-07-17] MEDS: HEPARIN SOD (PORCINE) 5,000 UNIT/ML 1 ML VIAL SUBCUT SCH ×4 (01:05→21:29)
[2019-07-17] MEDS: MORPHINE SULFATE 10 MG/ML INJ IV PRN ×3 (01:06→10:35)
[2019-07-17] MEDS: METRONIDAZOLE 500 MG/NS RTU 500 MG/100 ML RTUPB IV SCH ×4 (01:13→21:30)
[2019-07-17] MEDS: CEFAZOLIN 1 GM/D5W RTU 1 GM/50 ML RTUPB IV SCH ×4 (01:14→21:30)
[2019-07-17] MEDS: HYDROMORPHONE HCL INJ/PF 2 MG/ML AMPULE IV PRN ×2 (06:15)
[2019-07-17] MEDS: ONDANSETRON HCL INJ/PF 4 MG/2 ML SDV IV PRN (06:15)
--- NOTE | 2019-07-17 07:53 | PDOC PROGRESS REPORT ---
Subjective Progress Note for:: 07/17/19 Subjective:: c/o incisional pain Reason For Visit: Z43.3 ENCOUNTER FOR ATTENTION TO COLOSTOMY Physical Exam Vital Signs: Temp Pulse Resp BP Pulse Ox 97.3 F 83 17 148/82 H 99 07/17/19 01:21 07/17/19 01:21 07/17/19 01:21 07/17/19 01:21 07/17/19 01:21 Intake & Output 07/16/19 07/17/19 07/18/19 06:59 06:59 06:59 Intake Total 3513 3600 Output Total 2032 2380 Balance 1481 1220 Weight 72.8 kg 72.8 kg General appearance: PRESENT: mild distress Head exam: PRESENT: normocephalic Eye exam: PRESENT: EOMI Ear exam: PRESENT: normal external ear exam Mouth exam: PRESENT: moist Neck exam: PRESENT: full ROM Respiratory exam: PRESENT: clear to auscultation rosa maria Cardiovascular exam: PRESENT: RRR Pulses: PRESENT: normal radial pulses, normal femoral pulses Breast: PRESENT: Normal GI/Abdominal exam: PRESENT: soft Rectal exam: PRESENT: deferred Extremities exam: PRESENT: full ROM Musculoskeletal exam: PRESENT: full ROM Neurological exam: PRESENT: alert, awake, oriented to person, oriented to place Psychiatric exam: PRESENT: anxious, appropriate affect Focused psych exam: PRESENT: pressured speech Skin exam: PRESENT: dry Results Laboratory Results: 07/16/19 18:58 07/16/19 18:58 07/16/19 07/16/19 18:58 18:58 WBC 6.1 RBC 4.02 L Hgb 11.3 L Hct 32.5 L MCV 81 MCH 28.1 MCHC 34.8 RDW 13.5 Plt Count 224 Seg Neutrophils % 61.6 Sodium 134.2 L Potassium 3.8 Chloride 101 Carbon Dioxide 25 Anion Gap 8 BUN 5 L Creatinine 0.54 Est GFR ( Amer) > 60 Glucose 114 H Calcium 8.6 Impressions: Abdomen/Pelvis CT 07/16/19 00:00 IMPRESSION: 1. Postoperative changes as previously. Improving free air in the abdomen status post surgery. Persists hematoma in the left lower quadrant with additional mild fluid extending into the left inguinal canal these findings do not appear to be significantly changed compared to yesterday. No developing bowel obstruction. Assessment & Plan - Plan Summary Plan Summary: s/p neg exploratory laparotomy last pm this am c/o incisional pain ng and mckeon in place will cont pain control with toradol, dilaudid 'ativan for anxiety increase ambulation.
[2019-07-17] MEDS: LORAZEPAM INJ 2 MG/1 ML VIAL IV PRN ×5 (08:16→21:29)
[2019-07-17] MEDS: DEXTROSE 5%-LACTATED RINGERS 1,000 ML IV PRN ×2 (09:51→21:30)
[2019-07-18] MEDS: LORAZEPAM INJ 2 MG/1 ML VIAL IV PRN ×6 (01:07→22:52)
[2019-07-18] MEDS ORDERED: DEXTROSE 40% GEL 15 GM TUBE PO PRN ×2 (02:37)
[2019-07-18] MEDS ORDERED: DEXTROSE 50%-WATER 25 GM/50 ML DISP.SYRIN IV PRN ×2 (02:37)
[2019-07-18] MEDS ORDERED: GLUCAGON,HUMAN RECOMB 1 MG INJ SUBCUT PRN (02:37)
[2019-07-18] MEDS: ONDANSETRON HCL INJ/PF 4 MG/2 ML SDV IV PRN ×2 (03:54→11:12)
[2019-07-18] MEDS: CEFAZOLIN 1 GM/D5W RTU 1 GM/50 ML RTUPB IV SCH ×3 (05:08→21:41)
[2019-07-18] MEDS: KETOROLAC TROMETHAMINE INJ/PF 30 MG/1 ML SDV IV SCH ×3 (05:08→17:27)
[2019-07-18] MEDS: METRONIDAZOLE 500 MG/NS RTU 500 MG/100 ML RTUPB IV SCH (05:09)
[2019-07-18] MEDS: HEPARIN SOD (PORCINE) 5,000 UNIT/ML 1 ML VIAL SUBCUT SCH ×3 (05:13→21:40)
--- NOTE | 2019-07-18 07:01 | PDOC PROGRESS REPORT ---
Subjective Progress Note for:: 07/18/19 Subjective:: feels better, less anxious since starting ativan generally feels better passing diarrhea. Reason For Visit: Z43.3 ENCOUNTER FOR ATTENTION TO COLOSTOMY Physical Exam Vital Signs: Temp Pulse Resp BP Pulse Ox 98.3 F 73 17 119/65 99 07/17/19 23:22 07/17/19 23:22 07/17/19 23:22 07/17/19 23:22 07/17/19 23:22 Intake & Output 07/16/19 07/17/19 07/18/19 06:59 06:59 06:59 Intake Total 3513 3600 1450 Output Total 2032 2380 670 Balance 1481 1220 780 Weight 72.8 kg 72.8 kg 71 kg General appearance: PRESENT: no acute distress Head exam: PRESENT: normocephalic Eye exam: PRESENT: EOMI Neck exam: PRESENT: full ROM Respiratory exam: PRESENT: clear to auscultation rosa maria Cardiovascular exam: PRESENT: RRR Pulses: PRESENT: normal radial pulses, normal femoral pulses GI/Abdominal exam: PRESENT: soft Rectal exam: PRESENT: deferred Gentrourinary exam: PRESENT: ecchymosis Extremities exam: PRESENT: full ROM Musculoskeletal exam: PRESENT: full ROM Neurological exam: PRESENT: alert, awake, oriented to person, oriented to place Psychiatric exam: PRESENT: anxious Skin exam: PRESENT: dry Results Laboratory Results: 07/16/19 18:58 07/16/19 18:58 Impressions: Abdomen/Pelvis CT 07/16/19 00:00 IMPRESSION: 1. Postoperative changes as previously. Improving free air in the abdomen status post surgery. Persists hematoma in the left lower quadrant with additional mild fluid extending into the left inguinal canal these findings do not appear to be significantly changed compared to yesterday. No developing b owel obstruction. Assessment & Plan - Plan Summary Plan Summary: s/p coloproctostomy doing better now since starting ativan passed diarrhea after gastrografin ct scan will start diet
[2019-07-18] MEDS: FAMOTIDINE INJ/PF 20 MG/2 ML SDV IV SCH ×2 (09:35→21:41)
[2019-07-18] MEDS: DEXTROSE 5%-LACTATED RINGERS 1,000 ML IV PRN (10:50)
[2019-07-18] MEDS: HYDROMORPHONE HCL INJ/PF 2 MG/ML AMPULE IV PRN ×2 (14:44→20:21)
[2019-07-19] MEDS: KETOROLAC TROMETHAMINE INJ/PF 30 MG/1 ML SDV IV SCH ×2 (00:01→06:09)
[2019-07-19] MEDS: HYDROMORPHONE HCL INJ/PF 2 MG/ML AMPULE IV PRN (02:00)
[2019-07-19] MEDS: DEXTROSE 5%-LACTATED RINGERS 1,000 ML IV PRN (02:04)
[2019-07-19] MEDS: LORAZEPAM INJ 2 MG/1 ML VIAL IV PRN (04:02)
[2019-07-19] MEDS: HEPARIN SOD (PORCINE) 5,000 UNIT/ML 1 ML VIAL SUBCUT SCH (06:09)
--- NOTE | 2019-07-19 07:38 | PDOC DISCHARGE SUMMARY ---
General - Admit/Disc Date/PCP Admission Date/Primary Care Provider: 07/11/19 05:22 SHANIQUA RODRÍGUEZ MD Discharge Date: 07/19/19 - Discharge Diagnosis Final Diagnosis: diverticuliits and left inguinal hernia - Assessment Summary: Patient was admitted to the hospital on 07/11/2019. He was admitted for an elective colostomy drop back and left inguinal hernia repair. He underwent the procedure on the day of admission tolerated well had initially a routine benign postoperative course. On postop day 5 after he had started to having some return of bowel function he developed acute onset of increasing abdominal pain. A CT scan was obtained which showed excessive amount of free air in the abdominal cavity however there is no obvious leak when contrast was administered. Because of the increased abdominal pain he was taken back to the operating for an exploratory laparotomy which was unremarkable. Subsequent to that he improved he did have an excessive amount of anxiety throug hout his hospital course which patient was controlled with IV Ativan. Since his repeat exploratory laparotomy that was negative he improved his NG tube was removed as well as his Gagnon catheter he started passing flatus and then was started on a clear liquid diet which was slowly advanced to a soft diet. Today upon the day of discharge he is afebrile stable vital signs tolerating a soft diet having bowel movements has no excessive abdominal pain other than some mild incisional pain when he moves around. He is ready for discharge home today. He will be followed up with an appointment in the surgery clinic in 7 to 10 days after discharge. Final diagnosis history of diverticulitis, left inguinal hernia colostomy drop back and left inguinal hernia repair. - Additional Information Resuscitation Status: Full Code Discharge Diet: As Tolerated Discharge Activity: Balance Activity w/Rest, Energy Conservation, No Lifting Over 10 Pounds Referrals: SHANIQUA RODRÍGUEZ MD [Primary Care Provider] - 07/23/19 1:45 pm Prescriptions: Lorazepam [Ativan 1 mg Tablet] 1 mg PO Q4 PRN #30 tab PRN Reason: Lorazepam [Ativan 1 mg Tablet] 1 mg PO Q4 PRN #30 tab PRN Reason: Docusate Sodium [Colace 100 mg Capsule] 100 mg PO BID #60 capsule Docusate Sodium [Colace 100 mg Capsule] 100 mg PO BID #60 capsule Oxycodone HCl/Acetaminophen [Percocet 10-325 Mg Tablet] 1 each PO Q6HP PRN #20 tablet PRN Reason: Home Medications: Esomeprazole Magnesium [Nexium] 20 mg PO BID 04/14/19 Ibuprofen [Motrin 800 mg Tablet] 800 mg PO DAILYP PRN 04/14/19 Docusate Sodium [Stool Softener] 100 mg PO BID 07/04/19 Docusate Sodium [Colace 100 mg Capsule] 100 mg PO BID #60 capsule 07/19/19 Docusate Sodium [Colace 100 mg Capsule] 100 mg PO BID #60 capsule 07/19/19 Lorazepam [Ativan 1 mg Tablet] 1 mg PO Q4 PRN #30 tab 07/19/19 Lorazepam [Ativan 1 mg Tablet] 1 mg PO Q4 PRN #30 tab 07/19/19 Oxycodone HCl/Acetaminophen [Percocet 10-325 Mg Tablet] 1 each PO Q6HP PRN #20 tablet 07/19/19 History of Present Illiness History of Present Illness: ANTONINO CHUN is a 54 year old male Physical Exam Vital Signs: Temp Pulse Resp BP Pulse Ox 97.6 F 86 17 122/72 100 07/18/19 23:27 07/18/19 23:27 07/18/19 23:27 07/18/19 23:27 07/18/19 23:27 Intake & Output 07/18/19 07/19/19 07/20/19 06:59 06:59 06:59 Intake Total 1450 2100 Output Total 670 270 Balance 780 1830 Weight 71 kg 71.3 kg Results Laboratory Results: WBC 6.1 10^3/uL (4.0-10.5) 07/16/19 18:58 RBC 4.02 10^6/uL (4.35-5.55) L 07/16/19 18:58 Hgb 11.3 g/dL (13.5-17.0) L 07/16/19 18:58 Hct 32.5 % (37.9-51.0) L 07/16/19 18:58 MCV 81 fl (80-97) 07/16/19 18:58 MCH 28.1 pg (27.0-33.4) 07/16/19 18:58 MCHC 34.8 g/dL (32.0-36.0) 07/16/19 18:58 RDW 13.5 % (11.5-14.0) 07/16/19 18:58 Plt Count 224 10^3/uL (150-450) 07/16/19 18:58 Lymph % (Auto) 23.0 % (13-45) 07/16/19 18:58 [facility] % (Auto) 11.0 % (3-13) 07/16/19 18:58 Eos % (Auto) 3.5 % (0-6) 07/16/19 18:58 Baso % (Auto) 0.9 % (0-2) 07/16/19 18:58 Absolute Neuts (auto) 3.8 10^3/uL (1.7-8.2) 07/16/19 18:58 Absolute Lymphs (auto) 1.4 10^3/uL (0.5-4.7) 07/16/19 18:58 Absolute Monos (auto) 0.7 10^3/uL (0.1-1.4) 07/16/19 18:58 Absolute Eos (auto) 0.2 10^3/uL (0.0-0.6) 07/16/19 18:58 Absolute Basos (auto) 0.1 10^3/uL (0.0-0.2) 07/16/19 18:58 Seg Neutrophils % 61.6 % (42-78) 07/16/19 18:58 Sodium 134.2 mmol/L (137-145) L 07/16/19 18:58 Potassium 3.8 mmol/L (3.6-5.0) 07/16/19 18:58 Chloride 101 mmol/L (98-107) 07/16/19 18:58 Carbon Dioxide 25 mmol/L (22-30) 07/16/19 18:58 Anion Gap 8 (5-19) 07/16/19 18:58 BUN 5 mg/dL (7-20) L 07/16/19 18:58 Creatinine 0.54 mg/dL (0.52-1.25) 07/16/19 18:58 Est GFR ( Amer) > 60 (>60) 07/16/19 18:58 Est GFR (MDRD) Non-Af > 60 (>60) 07/16/19 18:58 Glucose 114 mg/dL (75-110) H 07/16/19 18:58 Calcium 8.6 mg/dL (8.4-10.2) 07/16/19 18:58 Blood Type A NEGATIVE 07/11/19 07:35 Antibody Screen NEGATIVE 07/11/19 07:35 Impressions: Abdomen/Pelvis CT 07/15/19 00:00 IMPRESSION: 1. Status post ventral laparotomy, reversal of the left lower quadrant ostomy, and creation of a colocolonic anastomosis. There is a surgical drain in place the terminates above the seminal vesicles. The free intraperitoneal air that is present is expected in the immediate postoperative period. There is a small amount of loculated fluid in the left lower quadrant that extends into the left inguinal hernia - the attenuation of the fluid measures less than 20 Hounsfield units. The bowel is normal in caliber and there is no evidence of obstruction. 2. Moderately-sized hiatal hernia. 3. Cholelithiasis. 4. Nephrolithiasis. 5. Other findings as detailed above. Abdomen/Pelvis CT 07/16/19 00:00 IMPRESSION: 1. Postoperative changes as previously. Improving free air in the abdomen status post surgery. Persists hematoma in the left lower quadrant with additional mild fluid extending into the left inguinal canal these findings do not appear to be significantly changed compared to yesterday. No developing bowel obstruction.
[2019-07-19] MEDS ORDERED: HYDROMORPHONE HCL INJ/PF 2 MG/ML AMPULE IV ONE (08:00)
[2019-07-19 09:06] VITALS: BP 133/88
== END 2019-07-19 09:18 | disposition home or self-care (01) | DRG 331 ==
LOC: INOR 05:22 → 4W 15:29 → 4S 07-13 17:22
PROVIDERS: ADMIT Surgery; ATTEND Surgery
PROC: 0DTJ0ZZ Resection of Appendix, Open Approach (ICD-10-PCS; 2019-07-11)
PROC: 0DBM0ZZ Excision of Descending Colon, Open Approach (ICD-10-PCS; principal; 2019-07-11 07:30)
PROC: 0WQF0ZZ Repair Abdominal Wall, Open Approach (ICD-10-PCS; 2019-07-11 07:30)
PROC: 3E1G78Z Irrigation of Upper GI using Irrigating Substance, Via Natural or Artificial Opening (ICD-10-PCS; 2019-07-16)
DX: Z43.3 Encounter for attention to colostomy (principal); K40.90 Unilateral inguinal hernia, without obstruction or gangrene, not specified as recurrent; F41.9 Anxiety disorder, unspecified; F17.210 Nicotine dependence, cigarettes, uncomplicated; K21.9 Gastro-esophageal reflux disease without esophagitis; Z79.899 Other long term (current) drug therapy
CPT/HCPCS: 36415; 74176; 790; 80048; 840; 85025; 85027; 86850; 86900; 86901; 88302; 88304; 94799; C9290; J0330; J0690; J1100; J1170; J1644; J1885; J1940; J2060; J2250; J2270; J2370; J2405; J2704; J2710; J3010; J3480; J3490; J7060; J7120; J7121; S0028

== ENCOUNTER → 2019-07-24 | Outpatient (CLI) | payer OTHER ==
[2019-07-24 12:51] LABS: HEMATOCRIT 38.7 % (37.9-51.0); HEMOGLOBIN 13.8 g/dL (13.5-17.0); MEAN CORPUSCULAR HEMOGLOBIN 28.9 pg (27.0-33.4); MEAN CORPUSCULAR HGB CONC 35.6 g/dL (32.0-36.0); MEAN CORPUSCULAR VOLUME 81 fl (80-97); PLATELET COUNT 400 10^3/uL (150-450); RED BLOOD COUNT 4.77 10^6/uL (4.35-5.55); RED CELL DISTRIBUTION WIDTH 14.2 % (11.5-14.0); WHITE BLOOD COUNT 9.3 10^3/uL (4.0-10.5)
[2019-07-24 13:12] LABS: ALBUMIN 4.1 g/dL (3.5-5.0); ALKALINE PHOSPHATASE 75 U/L (38-126); ANION GAP 12 (5-19); ASPARTATE AMINO TRANSFERASE 26 U/L (17-59); BILIRUBIN,DIRECT 0.3 mg/dL (0.0-0.4); BILIRUBIN,TOTAL 0.5 mg/dL (0.2-1.3); BLOOD UREA NITROGEN 13 mg/dL (7-20); CALCIUM 9.4 mg/dL (8.4-10.2); CARBON DIOXIDE 25 mmol/L (22-30); CHLORIDE 99 mmol/L (98-107); GLUCOSE 115 mg/dL (75-110); POTASSIUM 4.2 mmol/L (3.6-5.0); TOTAL PROTEIN 7.8 g/dL (6.3-8.2)
[2019-07-24 13:14] LABS: ABSOLUTE LYMPHOCYTES# (MANUAL) 1.8 10^3/uL (0.5-4.7); ABSOLUTE MONOCYTES # (MANUAL) 0.8 10^3/uL (0.1-1.4); BASOPHILS % (MANUAL) 2 % (0-2); EOSINOPHILS % (MANUAL) 1 % (0-6); LYMPHOCYTES % (MANUAL) 17 % (13-45); MONOCYTES % (MANUAL) 9 % (3-13); SEGMENTED NEUTROPHILS % (MAN) 69 % (42-78); TOTAL CELLS COUNTED 100
[2019-07-24 13:15] LABS: ANISOCYTOSIS SLIGHT; PLATELET COMMENT ADEQUATE; TOXIC GRANULATION 1+
--- NOTE | 2019-07-24 15:18 | RADIOLOGY REPORT (SQ) ---
EXAM DESCRIPTION: CT ABD/PELVIS WITH IV ORAL COMPLETED DATE/TIME: 07/24/2019 3:00 pm REASON FOR STUDY: R10.9 UNSPECIFIED ABDOMINAL PAIN, R19.7 DIARRHEA, UNSPECIFIED, R33.9 RETENT R10.9 UNSPECIFIED ABDOMINAL PAIN R19.7 DIARRHEA, UNSPECIFIED COMPARISON: 07/16/2019 TECHNIQUE: CT scan of the abdomen and pelvis performed using helical scanning technique with dynamic intravenous contrast injection. No oral contrast. Images reviewed with lung, soft tissue, and bone windows. Reconstructed coronal and sagittal MPR images reviewed. Delayed images for evaluation of the urinary system also acquired. All images stored on PACS. All CT scanners at this facility use dose modulation, iterative reconstruction, and/or weight based d osing when appropriate to reduce radiation dose to as low as reasonably achievable (ALARA). [facility]: Dose Right [facility]: CareDose [facility]: Dose Right [facility]: Teradose 4D [facility]: [employer] CONTRAST TYPE AND DOSE: contrast/concentration: Isovue 350.00 mg/ml; Total Contrast Delivered: 75.0 ml; Total Saline Delivered: 45.0 ml RENAL FUNCTION: BUN 13, creatinine 0.63 RADIATION DOSE: CT Rad equipment meets quality standard of care and radiation dose reduction techniq ues were employed. CTDIvol: 5.3 - 6.6 mGy. DLP: 649 mGy-cm.. LIMITATIONS: None. FINDINGS: LOWER CHEST: No significant findings. No nodules or infiltrates. There is a small hiatal hernia. LIVER: Normal size. No masses. No dilated ducts. SPLEEN: Normal size. No focal lesions. PANCREAS: No masses. No significant calcifications. No adjacent inflammation or peripancreatic fluid collections. Pancreatic duct not dilated. GALLBLADDER: Gallstones. No surrounding edema. ADRENAL GLANDS: No significant masses or asymmetry. RIGHT KIDNEY AND URETER: No solid masses. No significant calcifications. No hydronephrosis or hyd roureter. LEFT KIDNEY AND URETER: No solid masses. Nonobstructing left renal calculi. No hydronephrosis or hydroureter. AORTA AND VESSELS: No aneurysm. No dissection. Renal arteries, SMA, celiac without stenosis. RETROPERITONEUM: No retroperitoneal adenopathy, hemorrhage or masses. BOWEL AND PERITONEAL CAVITY: Postsurgical changes. No obstruction. Small fluid collection remains i n the right aspect of the pelvis not significantly changed from July 15. APPENDIX: Surgically absent. PELVIS: Small wedge-shaped fluid collection remains. ABDOMINAL WALL: Postsurgical changes with clips in the midline. Ostomy defect in the left lower quad rant. BONES: No significant or acute findings. OTHER: Trace amount of air underneath the right hemidiaphragm significantly improved from prior study . IMPRESSION: Postsurgical changes. Small residual fluid collection in the right aspect of the pelvis unchanged from July 15. This has a wedge-shaped configuration. Largest diameter is 2.7 x 1.8 cm. Most likely simple fluid or seroma. No evidence of mechanical obstruction. TECHNICAL DOCUMENTATION: JOB ID: [id number] Quality ID # [id number]: Final reports with documentation of one or more dose reduction techniques (e.g., Au tomated exposure control, adjustment of the mA and/or kV according to patient size, use of iterative reconstruction technique) 2010 [employer]- All Rights Reserved Reading location - IP/workstation name: [email or web address]
== END ==
LOC: RAD 11:41
PROVIDERS: ATTEND Surgery
DX: R10.9 Unspecified abdominal pain (principal); R19.7 Diarrhea, unspecified; R33.9 Retention of urine, unspecified
CPT/HCPCS: 36415; 74177; 80053; 85025

== ENCOUNTER → 2019-12-31 | Outpatient (CLI) | payer OTHER ==
--- NOTE | 2019-12-31 11:49 | RADIOLOGY REPORT (SQ) ---
EXAM DESCRIPTION: BARIUM ENEMA IMAGES COMPLETED DATE/TIME: 12/31/2019 11:20 am REASON FOR STUDY: R10.9 UNSPECIFIED ABDOMINAL PAIN R19.7 DIARRHEA, UNSPECIFIED R10.9 UNSPECIFIED AB DOMINAL PAIN R19.7 DIARRHEA, UNSPECIFIED COMPARISON: Barium enema 05/27/2019 FLUOROSCOPY TIME: 2.5 minutes. 21 images saved to PACS. TECHNIQUE: Following retrograde filling of the colon with barium and air, fluoroscopic spot and over head imaging of the colon was obtained and saved to PACS. LIMITATIONS: None. FINDINGS: PARTS DATA WRITER KUB: Normal abdominal film with adequate bowel prep. Surgical saurabh seen in the l eft lower quadrant at the site of the colorectal anastomosis. Gallbladder calcifications are identif ied. CECUM: Normal mucosa without intraluminal filling defects, intrinsic or extrinsic masses, or lesions. There is reflux contrast into the terminal ileum. ASCENDING COLON: Normal mucosa without intraluminal filling defects, intrinsic or extrinsic masses, o r lesions. Few scattered diverticulum. TRANSVERSE COLON: Normal mucosa without intraluminal filling defects, intrinsic or extrinsic masses, or lesions. DESCENDING COLON: Normal mucosa without intraluminal filling defects, intrinsic or extrinsic masses, or lesions. Few scattered diverticulum in the distal descending colon. SIGMOID COLON: Postsurgical changes of the sigmoid colon with a intact anastomosis which appears muhammad nt without narrowing. No extravasation or leak of contrast seen. RECTUM: Normal mucosa without intraluminal filling defects, intrinsic or extrinsic masses, or lesions . POST EVAC: Partial evacuation of barium with no additional findings. OTHER: No other significant finding. IMPRESSION: POSTSURGICAL CHANGES IN THE RECTOSIGMOID AREA WITH PATENT ANASTOMOSIS WITHOUT EVIDENCE O F STRICTURE, OR EXTRAVASATION. FEW SCATTERED DIVERTICULUM SEEN THROUGHOUT THE COLON WITHOUT EVIDENCE OF DIVERTICULITIS. COMMENT: Quality ID [id number]: Final reports for procedures using fluoroscopy that document radiation exp osure indices, or exposure time and number of fluorographic images (if radiation exposure indices are not available) TECHNICAL DOCUMENTATION: JOB ID: [id number] 2010 [employer]- All Rights Reserved Reading location - IP/workstation name: [email or web address]
== END ==
LOC: RAD 09:17
PROVIDERS: ATTEND Surgery
DX: R10.9 Unspecified abdominal pain (principal); R19.7 Diarrhea, unspecified
CPT/HCPCS: 74270